=== PATIENT | female | born 1950 | race Caucasian/White ===

== ENCOUNTER 2018-08-14 14:16 | Inpatient (IN) | payer OTHER ==
[~2018-08-14] VITALS: Ht 160 cm; Wt 69.5 kg
[~2018-08-14 14:16] MED LIST: FENOFIBRATE 145 MG TAB PO SCH
[2018-08-14] MEDS ORDERED: ACETAMINOPHEN 325 MG TAB PO STA (14:23)
[2018-08-14] MEDS ORDERED: CEFEPIME 2GM/50 ML (PMX) 50 ML IVPB STA (14:23)
[2018-08-14 14:26] VITALS: Ht 160 cm; Wt 69.5 kg
[2018-08-14] MEDS ORDERED: VANCOMYCIN 1 GM (PMX) 250 ML IVPB ONE (14:30)
[2018-08-14] MEDS ORDERED: SODIUM CHLORIDE 0.9% 1L BAG IV* STA (14:48)
[2018-08-14] MEDS ORDERED: METF100010 PO (14:57)
[2018-08-14] MEDS ORDERED: OMEP40CA6 PO (14:57)
[2018-08-14] MEDS ORDERED: LOSA50TA14 PO (14:58)
[2018-08-14] MEDS ORDERED: LINA5TAB PO (14:58)
[2018-08-14] MEDS ORDERED: METO-429 PO (14:58)
[2018-08-14] MEDS ORDERED: FENO160T13 PO (14:59)
[2018-08-14] MEDS ORDERED: OMEG-140 PO (15:00)
[2018-08-14] MEDS ORDERED: CLON-379 PO (15:00)
--- NOTE | 2018-08-14 16:14 | HP ---
Date/Time of Note Date/Time of Note DATE: 08/14/18 TIME: 16:14 Assessment/Plan VTE Prophylaxis SCD applied (from Nsg): No SCD contraindicated: other Pharmacological prophylaxis: heparin Lines/Catheters IV Catheter Type (from Nrsg): [place] Assessment/Plan Hospital Course A/P: 68-year-old female presents with epigastric right upper quadrant pain, sepsis likely secondary to UTI and possibly secondary to cholangitis: #Sepsis -likely secondary to UTI, but could also be possible signs of cholangitis although her LFTs were normal. -Admit patient, check TSH, A1c, lipid panel, continue broad-spectrum a ntibiotics and IV fluids, trend lactic acid -Tylenol PRN pain fever #Right upper quadrant pain: Again her gallbladder ultrasound shows signs of possible cholecystitis. -We will obtain surgery consult continue pain control medications and IV fluids anti-medic medications -We will also get HIDA scan #Diabetes: Follow-up A1c continue sliding scale #High cholesterol: Follow-up lipid panel #Hypertension: Blood pressure stable -Continue current medications Result Diagram: 08/14/18 1442 08/14/18 1442 Results 24hrs Laboratory Tests Test 08/14/18 14:25 08/14/18 14:39 08/14/18 14:42 08/14/18 14:59 Bedside Glucose 229 H POC Venous 5.1 *H Lactate White Blood Count 8.3 Red Blood Count 4.62 Hemoglobin 13.8 Hematocrit 40.2 Mean Corpuscular 87.0 Volume Mean Corpuscular 29.9 Hemoglobin Mean Corpuscular 34.3 Hemoglobin Concen t Red Cell 12.1 Distribution Width Platelet Count 281 Mean Platelet 10.2 Volume Immature 0.400 Granulocytes % Neutrophils % 87.8 H Lymphocytes % 9.3 L Monocytes % 1.7 Eosinophils % 0.2 Basophils % 0.6 Nucleated Red 0.0 Blood Cells % Immature 0.030 Granulocytes # Neutrophils # 7.3 Lymphocytes # 0.8 Monocytes # 0.1 L Eosinophils # 0.0 Basophils # 0.1 Nucleated Red 0.0 Blood Cells # Prothrombin Time 12.7 Prothrombin Time 1.0 Ratio INR International 0.94 Normalized Ratio Activated 44.9 H Partial Thrombopl ast Time Sodium Level 135 Potassium Level 3.7 Chloride Level 95 L Carbon Dioxide 21 Level Anion Gap 19 H Blood Urea 12 Nitrogen Creatinine 0.79 Est Glomerular > 60 Filtrat Rate mL/min Glucose Level 269 H Calcium Level 10.8 H Total Bilirubin 0.4 Direct Bilirubin 0.00 Indirect 0.4 Bilirubin Aspartate Amino 45 Transf (AST/SGOT) Alanine 26 Aminotransferase (ALT/SGPT) Alkaline 97 Phosphatase Troponin I < 0.012 Total Protein 8.4 H Albumin 4.7 Globulin 3.70 H Albumin/Globulin 1.27 Ratio Lipase 163 Test 08/14/18 15:15 Urine Color YELLOW Urine Clarity SLIGHTLY CLOUDY A Urine pH 6.0 Urine Specific 1.014 [place] Urine Ketones TRACE A Urine Nitrite NEGATIVE Urine Bilirubin NEGATIVE Urine NEGATIVE Urobilinogen Urine Leukocyte 2+ H Esterase Urine Microscopic 6 H RBC Urine Microscopic 93 H WBC Urine Bacteria FEW A Urine Hemoglobin NEGATIVE Urine Glucose 2+ H Urine Total 1+ H Protein HPI/ROS Admit Date/Time Admit Date/Time Hx of Present Illness 68-year-old female past medical history of: Diabetes, hypertension, high cholesterol, GERD, possible gallstones who complains of abdominal pain. Symptoms have been going on for the last 3 days. She is also had some nausea an d nonbilious nonbloody vomiting symptoms. Complains of chills at home. Is told in the past she has gallstones was never had any surgeries before including any gallbladder surgeries. She also complains of some mild low back pain. When she arrived she was found with temperature 104.5. Her UA is also positive for signs of UTI, but her white count is normal 8.3. Her gallbladder ultrasound also s howed signs of gallbladder wall thickening and sludge, possible cholecystitis. PMH/Family/Social Past Medical History Medications Current Medications Vancomycin HCl 250 ml @ 125 mls/hr ONCE ONCE IVPB Last administered on 08/14/18at 15:46; Admin Dose 125 MLS/HR; Start 08/14/18 at 14:30; Stop 08/14/18 at 16:29 Ondansetron HCl (Zofran Inj) 4 mg BRIDGE ORDER PRN IV NAUSEA/VOMITING; Start 08/14/18 at 16:30; Stop 08/15/18 at 16:29 Acetaminophen (Tylenol Tab) 650 mg ER BRIDGE PRN PO .MILD PAIN 1-3 OR TEMP; Start 08/14/18 at 16:30; Stop 08/15/18 at 16:29 IV Flush (NS 3 ml) 3 ml PER PROTOCOL IV ; Start 08/14/18 at 16:30; Status UNV Ondansetron HCl (Zofran Inj) 4 mg Q6H PRN IV NAUSEA/VOMITING; Start 08/14/18 at 16:30; Status UNV Acetaminophen (Tylenol Tab) 650 mg Q6H PRN PO .PAIN 1-3 OR TEMP; Start 08/14/18 at 16:30; Status UNV Acetaminophen/ Hydrocodone Bitart ([place] (5/325)) 1 tab Q6H PRN PO .MOD PAIN 4- 6; Start 08/14/18 at 16:30; Status UNV Morphine Sulfate (morphine) 2 mg Q4H PRN IV .SEVERE PAIN 7-10; Start 08/14/18 at 16:30; Status UNV Docusate Sodium (Colace) 100 mg Q12H PRN PO .CONSTIPATION; Start 08/14/18 at 16:30; Status UNV Magnesium Hydroxide (Milk Of Mag) 30 ml DAILY PRN PO .CONSTIPATION; Start at 16:30; Status UNV Pantoprazole (Protonix Iv) 40 mg DAILY@06 IV ; Start 08/15/18 at 06:00; Status UNV Heparin Sodium (Porcine) (Heparin (5000 Units/1ml)) 5,000 unit Q12 SC ; Start 08/14/18 at 21:00; Status UNV Lorazepam (Ativan) 0.5 mg Q6H PRN IV ANXIETY; Start 08/14/18 at 16:30; Status UNV Sodium Chloride 1,000 ml @ 100 mls/hr Q10H IV ; Start 08/14/18 at 16:09; Status UNV Albuterol/ Ipratropium (Duoneb) 3 ml Q4H RESP THERAPY PRN HHN SHORTNESS OF BREATH; Start 08/14/18 at 16:30; Status UNV Hydralazine HCl (Apresoline) 10 mg Q6H PRN IV ELEVATED BLOOD PRESSURE; Start 08/14/18 at 16:30; Status UNV Nitroglycerin (Nitroglycerin (Sl Tab) 0.4 Mg) 1 tab Q5M PRN SL ANGINA; Start 08/14/18 at 16:30; Status UNV Cefepime HCl 50 ml @ 100 mls/hr Q12 IVPB ; Start 4/23/19 at 21:00; Status UNV Clonidine (Catapres) 0.1 mg BID PO ; Start 08/14/18 at 21:00; Status UNV Miscellaneous Information 160 mg DAILY PO ; Start 08/15/18 at 09:00; Status UNV Miscellaneous Information 1 each TID PO ; Start 08/14/18 at 21:00; Status UNV Miscellaneous Information 40 mg DAILY PO ; Start 08/15/18 at 09:00; Status UNV Coded Allergies: No Known Allergy (Unverified , 08/14/18) Past Surgical History Past Surgical Hx: no surgical history Family History Significant Family History: other (Father: Diabetes) Social History Alcohol Use: none Smoking Status: Never smoker Drug Use: none Exam/Review of Systems Vital Signs Vitals Vital Signs Date Temp Pulse Resp B/P (MAP) Pulse Ox O2 O2 Flow FiO2 Time Delivery Rate 08/14/18 99.4 108 24 122/68 97 Nasal 2.0 15:55 (86) Cannula Exam Exam Gen: lying in bed, no acute distress Eyes: PERRL, no icterus HEENT: No tongue fasciculations, clear oropharynx, moist mucous membranes Neck: Supple, no lymphadenopathy Card: Regular rate and rhythm, no murmurs Pulm: Clear to auscultation bilaterally Abd: Soft, but does have positive tenderness to palpation epigastric and right u pper quadrant area, no significant rebound or guarding, nondistended. No hepatosplenomegaly. Ext: No cyanosis/clubbing/edema Neuro: No focal deficits MARCELINO ROCA Aug 14, 2018 16:14
[2018-08-14] MEDS ORDERED: GLUCOSE GEL 15 GRAM TUBE BUCCAL PRN (16:30)
[2018-08-14] MEDS ORDERED: MAGNESIUM HYDROXIDE 30ML CUP PO PRN (16:30)
[2018-08-14] MEDS ORDERED: ACETAMINOPHEN 325 MG TAB PO PRN ×2 (16:30)
[2018-08-14] MEDS ORDERED: LORAZEPAM 2 MG INJ IV PRN (16:30)
[2018-08-14] MEDS ORDERED: NACL 0.9% 3 ML SYG IV SCH (16:30)
[2018-08-14] MEDS ORDERED: GLUCOSE GEL 15 GRAM TUBE PO PRN ×2 (16:30)
[2018-08-14] MEDS ORDERED: ALBUTEROL/IPRATROPIUM (NEB) 3 ML AMP HHN PRN (16:30)
[2018-08-14] MEDS ORDERED: DOCUSATE SODIUM 100 MG CAP PO PRN (16:30)
[2018-08-14] MEDS ORDERED: ONDANSETRON 4 MG INJ IV PRN ×2 (16:30)
[2018-08-14] MEDS ORDERED: GLUCAGON 1 MG INJ IM PRN (16:30)
[2018-08-14] MEDS ORDERED: hydrALAzine 20 MG INJ IV PRN (16:30)
[2018-08-14] MEDS ORDERED: DEXTROSE 50% 50 ML SYRINGE IV PRN ×2 (16:30)
[2018-08-14] MEDS ORDERED: NITROGLYCERIN (SL) 0.4 MG TAB SL PRN (16:30)
--- NOTE | 2018-08-14 18:13 | ERD ---
ER Documentation Chief Complaint Chief Complaint pt is bib family with c/o weakness, fever, shaking since 0 HPI Patient is a 68-year-old female with hypertension and diabetes who presents with dizziness and nausea. The patient says that she was "shaking all over". She had fever in the emergency department. Her symptoms started today. She has had a recent cough. She complains of epigastric pain. Upon review of old medical records this is the patient's first visit to the emergency department. ROS All systems reviewed and are negative except as per history of present illness. Medications Home Meds Reported Medications Clonidine Hcl* (Clonidine Hcl*) 0.1 Mg Tab, 0.1 MG PO BID, TAB 08/14/18 [place]-3/Dha/Epa/Fish Oil ([place] 3 500 Softgel) 1 Each Capsule, 1 EACH PO TID, CAP 08/14/18 Fenofibrate, Micronized* (Fenofibrate*) 160 Mg Tablet, 160 MG PO DAILY, TAB 08/14/18 Metoprolol Tartrate* (Lopressor*) 50 Mg Tab, 50 MG PO BID, #60 TAB 08/14/18 Linagliptin (TRADJENTA) 5 Mg Tablet, 5 MG PO DAILY, TAB 08/14/18 Losartan Potassium* (Losartan Potassium*) 50 Mg Tablet, 50 MG PO BID, TAB 08/14/18 Omeprazole* (Omeprazole*) 40 Mg Capsule.dr, 40 MG PO DAILY, #30 CAP 08/14/18 Metformin Hcl* (Metformin Hcl*) 1,000 Mg Tablet, 1000 MG PO WITH BREAKFAST DINNE, #60 TAB 08/14/18 Allergies Allergies: Coded Allergies: No Known Allergy (Unverified , 08/14/18) PMhx/Soc Hx Respiratory Disorders: No Hx Cardiac Disorders: Yes (HRTN; HIGH CHOLESTEROL) Hx Psychiatric Problems: No Hx Miscellaneous Medical Probl: No Hx Alcohol Use: No Hx Substance Use: No Hx Tobacco Use: No Smoking Status: Never smoker FmHx Family History: diabetes Physical Exam Vitals Vital Signs Date Temp Pulse Resp B/P (MAP) Pulse Ox O2 O2 Flow FiO2 Time Delivery Rate 08/14/18 100.3 104 18 109/67 95 Nasal 2.0 17:31 (81) Cannula 08/14/18 99.4 108 24 122/68 97 Nasal 2.0 15:55 (86) Cannula 08/14/18 Nasal 2 15:30 Cannula 08/14/18 104.5 117 24 147/83 89 14:26 (104) Physical Exam Const: Moderate distress Head: Atraumatic Eyes: Normal Conjunctiva ENT: Normal External Ears, Nose and Mouth. Neck: Full range of motion. No meningismus. Resp: Clear to auscultation bilaterally Cardio: Tachycardic rate without murmur Abd: Soft, epigastric tenderness to palpation without rebound or guarding Skin: No petechiae or rashes Back: No midline or flank tenderness Ext: No cyanosis, or edema Neur: Awake and alert Psych: Normal Mood and Affect Result Diagram: 08/14/18 1442 08/14/18 1442 Results 24 hrs Laboratory Tests Test 08/14/18 14:25 08/14/18 14:39 08/14/18 14:42 08/14/18 14:59 Bedside Glucose 229 mg/dL POC Venous 5.1 mmol/L Lactate White Blood Count 8.3 10^3/ul Red Blood Count 4.62 10^6/ul Hemoglobin 13.8 g/dl Hematocrit 40.2 % Mean Corpuscular 87.0 fl Volume Mean Corpuscular 29.9 pg Hemoglobin Mean Corpuscular 34.3 g/dl Hemoglobin Concen t Red Cell 12.1 % Distribution Width Platelet Count 281 10^3/UL Mean Platelet 10.2 fl Volume Immature 0.400 % Granulocytes % Neutrophils % 87.8 % Lymphocytes % 9.3 % Monocytes % 1.7 % Eosinophils % 0.2 % Basophils % 0.6 % Nucleated Red 0.0 /100WBC Blood Cells % Immature 0.030 10^3/ul Granulocytes # Neutrophils # 7.3 10^3/ul Lymphocytes # 0.8 10^3/ul Monocytes # 0.1 10^3/ul Eosinophils # 0.0 10^3/ul Basophils # 0.1 10^3/ul Nucleated Red 0.0 10^3/ul Blood Cells # Prothrombin Time 12.7 Sec Prothrombin Time 1.0 Ratio INR International 0.94 Normalized Ratio Activated 44.9 Sec Partial Thrombopl ast Time Sodium Level 135 mmol/L Potassium Level 3.7 mmol/L Chloride Level 95 mmol/L Carbon Dioxide 21 mmol/L Level Anion Gap 19 Blood Urea 12 mg/dl Nitrogen Creatinine 0.79 mg/dl Est Glomerular > 60 mL/min Filtrat Rate mL/min Glucose Level 269 mg/dl Calcium Level 10.8 mg/dl Total Bilirubin 0.4 mg/dl Direct Bilirubin 0.00 mg/dl Indirect 0.4 mg/dl Bilirubin Aspartate Amino 45 IU/L Transf (AST/SGOT) Alanine 26 IU/L Aminotransferase (ALT/SGPT) Alkaline 97 IU/L Phosphatase Troponin I < 0.012 ng/ml Total Protein 8.4 g/dl Albumin 4.7 g/dl Globulin 3.70 g/dl Albumin/Globulin 1.27 Ratio Lipase 163 U/L Test 08/14/18 15:15 08/14/18 16:30 08/14/18 17:21 Urine Color YELLOW Urine Clarity SLIGHTLY CLOUDY Urine pH 6.0 Urine Specific 1.014 [place] Urine Ketones TRACE mg/dL Urine Nitrite NEGATIVE mg/dL Urine Bilirubin NEGATIVE mg/dL Urine NEGATIVE mg/dL Urobilinogen Urine Leukocyte 2+ Jona/ul Esterase Urine Microscopic 6 /HPF RBC Urine Microscopic 93 /HPF WBC Urine Bacteria FEW /HPF Urine Hemoglobin NEGATIVE mg/dL Urine Glucose 2+ mg/dL Urine Total 1+ mg/dl Protein POC Venous 3.1 mmol/L Lactate Lactic Acid Level 3.1 mmol/L Current Medications Medications Dose Sig/Mag Start Time Status Last (Trade) Ordered Route PRN Stop Time Admin Dose Reason Admin 650 mg ONCE STAT 08/14/18 DC 08/14/18 Acetaminophen PO 14:23 15:01 (Tylenol 08/14/18 14:24 Tab) Cefepime HCl 50 ml @ ONCE STAT 08/14/18 DC 08/14/18 100 mls/hr IVPB 14:23 15:01 08/14/18 14:52 Vancomycin 250 ml @ ONCE ONCE 08/14/18 DC 08/14/18 HCl 125 mls/hr IVPB 14:30 15:46 08/14/18 16:29 Sodium 2,090 ml BOLUS OVER 2 08/14/18 DC 08/14/18 Chloride HOURS STAT 14:48 14:51 (NS) IV* 08/14/18 14:49 Ondansetron 4 mg BRIDGE ORDER 08/14/18 HCl (Zofran PRN IV 16:30 Inj) NAUSEA/VOMITI 08/15/18 16:29 NG 650 mg ER BRIDGE 08/14/18 Acetaminophen PRN PO 16:30 (Tylenol .MILD PAIN 08/15/18 16:29 Tab) 1-3 OR TEMP IV Flush 3 ml PER 08/14/18 (NS 3 ml) PROTOCOL IV 16:30 Ondansetron 4 mg Q6H PRN 08/14/18 HCl (Zofran IV 16:30 Inj) NAUSEA/VOMITI NG 650 mg Q6H PRN 08/14/18 Acetaminophen PO .PAIN 1-3 16:30 (Tylenol OR TEMP Tab) 1 tab Q6H PRN 08/14/18 Acetaminophen PO .MOD PAIN 16:30 / 4-6 Hydrocodone Bitart ([place] (5/325)) Morphine 2 mg Q4H PRN 08/14/18 Sulfate IV .SEVERE 16:30 (morphine) PAIN 7-10 Docusate 100 mg Q12H PRN 08/14/18 Sodium PO 16:30 (Colace) .CONSTIPATION Magnesium 30 ml DAILY PRN 08/14/18 Hydroxide PO 16:30 (Milk Of Mag) .CONSTIPATION 40 mg DAILY@06 08/15/18 Pantoprazole IV 06:00 (Protonix Iv) Heparin 5,000 unit Q12 SC 08/14/18 Sodium 21:00 (Porcine) (Heparin (5000 Units/1ml)) Lorazepam 0.5 mg Q6H PRN 08/14/18 (Ativan) IV ANXIETY 16:30 Sodium 1,000 ml @ Q10H IV 08/14/18 Chloride 100 mls/hr 19:00 Albuterol/ 3 ml Q4H RESP 08/14/18 Ipratropium THERAPY PRN 16:30 (Duoneb) HHN SHORTNESS OF BREATH Hydralazine 10 mg Q6H PRN 08/14/18 HCl IV ELEVATED 16:30 (Apresoline) BLOOD PRESSURE 1 tab Q5M PRN 08/14/18 Nitroglycerin SL ANGINA 16:30 (Nitroglyceri n (Sl Tab) 0.4 Mg) Cefepime HCl 50 ml @ Q12 IVPB 08/15/18 100 mls/hr 01:00 Clonidine 0.1 mg BID PO 08/14/18 (Catapres) 21:00 Fenofibrate 145 mg DAILY PO 08/14/18 DC ([place]) 09:00 08/14/18 16:41 Fish Oil 1,000 mg DAILY PO 08/15/18 (Fish Oil) 09:00 40 mg DAILY PO 08/15/18 DC Miscellaneous 09:00 Information 08/15/18 09:00 Discontinue ONCE ONCE 08/14/18 DC Miscellaneous current oral XX 16:30 sulfonylur... 08/14/18 16:31 Information (* Miscellaneous Pharmacy Order) Diagnostic 1 ea 02 XX 08/15/18 Test (Pha) 02:00 (Accu-Chek) ONCE ONCE 08/14/18 DC Miscellaneous HYPOGLYCEMIA XX 16:30 PROTOCOL 08/14/18 16:31 Information w... (* Miscellaneous Pharmacy Order) Insulin NOVOLOG Q4 SC 08/14/18 Aspart *MILD* 21:00 (Novolog ALGORI... Insulin Pen) Discontinue ONCE ONCE 08/14/18 DC Miscellaneous all previ... XX 16:30 08/14/18 16:31 Information (* Miscellaneous Pharmacy Order) 1 ea NOTE XX 08/14/18 Miscellaneous 16:30 Information Glucose 15 gm Q15M PRN 08/14/18 (Glutose) PO DECREASED 16:30 GLUCOSE Glucose 22.5 gm Q15M PRN 08/14/18 (Glutose) PO DECREASED 16:30 GLUCOSE Dextrose 25 ml Q15M PRN 08/14/18 (D50w IV DECREASED 16:30 Syringe) GLUCOSE Dextrose 50 ml Q15M PRN 08/14/18 (D50w IV DECREASED 16:30 Syringe) GLUCOSE Glucagon 1 mg Q15M PRN 08/14/18 (Glucagen) IM DECREASED 16:30 GLUCOSE Glucose 15 gm Q15M PRN 08/14/18 (Glutose) BUCCAL 16:30 DECREASED GLUCOSE Fenofibrate 145 mg DAILY PO 08/15/18 (Tricor) 09:00 Procedures/MDM EKG read by me: Rate/Rhythm: Sinus tachycardia at a rate of 105 Intervals: Normal Impression: Tachycardia without ischemia Chest x-ray read by radiology. Sepsis Documentation: Patient's infectious symptoms have not stabilized and the patient is at risk of rapid decompensation. The patient will be admitted for careful hydration, antibiotic therapy, and infectious source control. SEVERE SEPSIS CRITERIA: Infectious source: Cystitis End organ damage indicated by: Lactate greater than 2 SEPSIS MANAGEMENT Time of recognition of sepsis: 1439. Time of recognition of severe sepsis: 143. Time of recognition of septic shock: 1439. 3 HOUR BUNDLE Blood cultures x 2 before broad-spectrum antibiotics: Yes 30 ml/kg NS bolus completed Initial lactate 5.1 Repeat lactate 3.1 SEPTIC SHOCK ASSESSMENT: Yes lactic acid > 4.0 No persistent hypotension (SBP < 90 or 40 mmHg drop, MAP < 65) despite 30 mL/kg IV fluid bolus VOLUME REASSESSMENT FOR SEPTIC SHOCK: Reevaluation Time: 1731 Temp 100.3, BP 109/67, HR 104, RR 18, Pox 95% Heart regular rate & rhythm Lungs no crackles Skin warm & dry Cap Refill less than 2 seconds Peripheral pulses radially present PERSISTENT HYPOTENSION TREATMENT: Comfort care no Central line not Required Vasopressor started not required I considered further perfusion assessment with CVP measurement, SCVO2, bedside ultrasound volume assessment, passive leg raise, trial of further fluid bolus. And proceeded with 30 ml/kg fluid bolus of NSS, broad spectrum antibiotics, and admission. The patient will be admitted to the care of Dr. Rodriguez to a medical surgical bed. CRITICAL CARE Critical care time 35 minutes Emergent fluid management while maintaining close respiratory support. Provision of immediate and broad-spectrum antibiotic therapy. Simultaneous assessment for possible sources in order to direct targeted therapy. Consideration for invasive and chemical support to prevent cardiopulmonary collapse. Critical care time is independent of procedures performed. Departure Diagnosis: Primary Impression: Septic shock Additional Impression: Cystitis Condition: Serious VIC LEON MD Aug 14, 2018 18:13
[2018-08-14 20:50] VITALS: BP 139/72; PULSE 92; RESP 18
[2018-08-14] MEDS: SOD CHLORIDE 0.9% 1,000 ML IV SCH (22:21)
[2018-08-14] MEDS: HEPARIN 5,000 UNIT/1 ML VIAL SC SCH (22:23)
--- NOTE | 2018-08-14 22:27 | CONS ---
Assessment/Plan Assessment/Plan Assessment/Plan (Daily) 68 year old admitted with Sepsis, + UA and US and HIDA consistent with Acute Cholecystitis -- patient is a good candidate for Lap cholecystitis as Sepsis is improving with antibiotics and fluid resuscitation -- plan for Lap Deb Tomorrow Plan: 1. Lap Dbe 2. Consent will discuss risk of surgery including conversion to open, CBD injury and bleeding and liver injury. 3. NPO - case schedule Consultation Date/Type/Reason Admit Date/Time Date of Consultation: Aug 14, 2018 Type of Consult General Surgery Consult Reason for Consultation Evaluation of abdominal pain Date/Time of Note DATE: 08/14/18 TIME: 22:11 Hx of Present Illness 68-year-old female past medical history of: Diabetes, hypertension, high cholesterol, GERD, possible gallstones who complains of abdominal pain. Symptoms have been going on for the last 3 days. She is also had some nausea and nonbilious nonbloody vomiting symptoms. Complains of chills at home. Is told in the past she has gallstones was never had any surgeries before including any gallbladder surgeries. She also complains of some mild low back pain. When she arrived she was found with temperature 104.5. Her UA is also positive for signs of UTI, but her white count is normal 8.3. Her gallbladder ultrasound also showed signs of gallbladder wall thickening and sludge, possible cholecystitis. Constitutional: no complaints, chills, febrile, poor po Eyes: No no complaints, No pain, No discharge, No redness, No visual change, No other ENT: No no complaints, No bleeding, No pain, No congestion, No discharge, No dysphagia, No sore throat, No other Respiratory: No no complaints, No pain, No cough, No pleuritic pain, No shortness of breath, No sputum, No wheezing, No other Cardiovascular: No no complaints, No chest pain, No edema, No lightheadedness, No orthopenea, No palpitations, No paroxysmal nocturnal dyspnea, No other Gastrointestinal: decreased appetite, nausea, vomiting Genitourinary: dysuria Musculoskeletal: no complaints Skin: no complaints Neurologic: no complaints; No confusion, No dizziness, No focal-weakness, No headache, No syncope, No seizure, No other Endocrine: No no complaints, No polyuria, No polydypsia, No dry skin, No temp intolerance, No other Lymphatic: No no complaints, No adenopathy, No tender nodes, No lymphadema, No other Psychological: No no complaints, No nl mood/affect, No anxiety, No confusion, No depression, No suicidal, No other Immunologic: No no complaints, No immunodeficiency, No pruritis, No rhinitis, No urticaria, No other Past Medical History Home Meds Reported Medications Clonidine Hcl* (Clonidine Hcl*) 0.1 Mg Tab, 0.1 MG PO BID, TAB 08/14/18 [place]-3/Dha/Epa/Fish Oil ([place] 3 500 Softgel) 1 Each Capsule, 1 EACH PO TID, CAP 08/14/18 Fenofibrate, Micronized* (Fenofibrate*) 160 Mg Tablet, 160 MG PO DAILY, TAB 08/14/18 Metoprolol Tartrate* (Lopressor*) 50 Mg Tab, 50 MG PO BID, #60 TAB 08/14/18 Linagliptin (TRADJENTA) 5 Mg Tablet, 5 MG PO DAILY, TAB 08/14/18 Losartan Potassium* (Losartan Potassium*) 50 Mg Tablet, 50 MG PO BID, TAB 08/14/18 Omeprazole* (Omeprazole*) 40 Mg Capsule.dr, 40 MG PO DAILY, #30 CAP 08/14/18 Metformin Hcl* (Metformin Hcl*) 1,000 Mg Tablet, 1000 MG PO WITH BREAKFAST DINNE, #60 TAB 08/14/18 Medications Current Medications Ondansetron HCl (Zofran Inj) 4 mg BRIDGE ORDER PRN IV NAUSEA/VOMITING; Start 08/14/18 at 16:30; Stop 08/15/18 at 16:29 Acetaminophen (Tylenol Tab) 650 mg ER BRIDGE PRN PO .MILD PAIN 1-3 OR TEMP; Start 08/14/18 at 16:30; Stop 08/15/18 at 16:29 IV Flush (NS 3 ml) 3 ml PER PROTOCOL IV ; Start 08/14/18 at 16:30 Ondansetron HCl (Zofran Inj) 4 mg Q6H PRN IV NAUSEA/VOMITING; Start 08/14/18 at 16:30 Acetaminophen (Tylenol Tab) 650 mg Q6H PRN PO .PAIN 1-3 OR TEMP; Start 08/14/18 at 16:30 Acetaminophen/ Hydrocodone Bitart ([place] (5/325)) 1 tab Q6H PRN PO .MOD PAIN 4- 6; Start 08/14/18 at 16:30 Morphine Sulfate (morphine) 2 mg Q4H PRN IV .SEVERE PAIN 7-10; Start 08/14/18 at 16:30 Docusate Sodium (Colace) 100 mg Q12H PRN PO .CONSTIPATION; Start 08/14/18 at 16:30 Magnesium Hydroxide (Milk Of Mag) 30 ml DAILY PRN PO .CONSTIPATION; Start 08/14/18 at 16:30 Pantoprazole (Protonix Iv) 40 mg DAILY@06 IV ; Start 08/15/18 at 06:00 Heparin Sodium (Porcine) (Heparin (5000 Units/1ml)) 5,000 unit Q12 SC ; Start 08/14/18 at 21:00 Lorazepam (Ativan) 0.5 mg Q6H PRN IV ANXIETY; Start 08/14/18 at 16:30 Sodium Chloride 1,000 ml @ 100 mls/hr Q10H IV ; Start 08/14/18 at 19:00 Albuterol/ Ipratropium (Duoneb) 3 ml Q4H RESP THERAPY PRN HHN SHORTNESS OF BREATH; Start 08/14/18 at 16:30 Hydralazine HCl (Apresoline) 10 mg Q6H PRN IV ELEVATED BLOOD PRESSURE; Start 08/14/18 at 16:30 Nitroglycerin (Nitroglycerin (Sl Tab) 0.4 Mg) 1 tab Q5M PRN SL ANGINA; Start 08/14/18 at 16:30 Cefepime HCl 50 ml @ 100 mls/hr Q12 IVPB ; Start 08/15/18 at 01:00 Clonidine (Catapres) 0.1 mg BID PO ; Start 08/14/18 at 21:00 Fish Oil (Fish Oil) 1,000 mg DAILY PO ; Start 08/15/18 at 09:00 Diagnostic Test (Pha) (Accu-Chek) 1 ea 02 XX ; Start 08/15/18 at 02:00 Insulin Aspart (Novolog Insulin Pen) NOVOLOG *MILD* ALGORI... Q4 SC ; Start 08/14/18 at 21:00 Miscellaneous Information 1 ea NOTE XX ; Start 08/14/18 at 16:30 Glucose (Glutose) 15 gm Q15M PRN PO DECREASED GLUCOSE; Start 08/14/18 at 16:30 Glucose (Glutose) 22.5 gm Q15M PRN PO DECREASED GLUCOSE; Start 08/14/18 at 16:30 Dextrose (D50w Syringe) 25 ml Q15M PRN IV DECREASED GLUCOSE; Start 08/14/18 at 16:30 Dextrose (D50w Syringe) 50 ml Q15M PRN IV DECREASED GLUCOSE; Start 08/14/18 at 16:30 Glucagon (Glucagen) 1 mg Q15M PRN IM DECREASED GLUCOSE; Start 08/14/18 at 16:30 Glucose (Glutose) 15 gm Q15M PRN BUCCAL DECREASED GLUCOSE; Start 08/14/18 at 16:30 Fenofibrate (Tricor) 145 mg DAILY PO ; Start 08/15/18 at 09:00 Allergies: Coded Allergies: No Known Allergy (Unverified , 08/14/18) Past Surgical History Past Surgical Hx: no surgical history Social History Alcohol Use: none Smoking Status: Never smoker Drug Use: none Exam/Review of Systems Exam Vitals Vital Signs Date Temp Pulse Resp B/P (MAP) Pulse Ox O2 O2 Flow FiO2 Time Delivery Rate 08/14/18 98.3 92 18 139/72 96 20:50 (94) 08/14/18 Nasal 2.0 20:02 Cannula Results Result Diagram: 08/14/18 1442 08/14/18 1442 Results 24hrs Laboratory Tests Test 08/14/18 14:25 08/14/18 14:39 08/14/18 14:42 08/14/18 14:59 Bedside Glucose 229 H POC Venous 5.1 *H Lactate White Blood Count 8.3 Red Blood Count 4.62 Hemoglobin 13.8 Hematocrit 40.2 Mean Corpuscular 87.0 Volume Mean Corpuscular 29.9 Hemoglobin Mean Corpuscular 34.3 Hemoglobin Concen t Red Cell 12.1 Distribution Width Platelet Count 281 Mean Platelet 10.2 Volume Immature 0.400 Granulocytes % Neutrophils % 87.8 H Lymphocytes % 9.3 L Monocytes % 1.7 Eosinophils % 0.2 Basophils % 0.6 Nucleated Red 0.0 Blood Cells % Immature 0.030 Granulocytes # Neutrophils # 7.3 Lymphocytes # 0.8 Monocytes # 0.1 L Eosinophils # 0.0 Basophils # 0.1 Nucleated Red 0.0 Blood Cells # Prothrombin Time 12.7 Prothrombin Time 1.0 Ratio INR International 0.94 Normalized Ratio Activated 44.9 H Partial Thrombopl ast Time Sodium Level 135 Potassium Level 3.7 Chloride Level 95 L Carbon Dioxide 21 Level Anion Gap 19 H Blood Urea 12 Nitrogen Creatinine 0.79 Est Glomerular > 60 Filtrat Rate mL/min Glucose Level 269 H Calcium Level 10.8 H Total Bilirubin 0.4 Direct Bilirubin 0.00 Indirect 0.4 Bilirubin Aspartate Amino 45 Transf (AST/SGOT) Alanine 26 Aminotransferase (ALT/SGPT) Alkaline 97 Phosphatase Troponin I < 0.012 Total Protein 8.4 H Albumin 4.7 Globulin 3.70 H Albumin/Globulin 1.27 Ratio Lipase 163 Test 08/14/18 15:15 08/14/18 16:30 08/14/18 17:21 Urine Color YELLOW Urine Clarity SLIGHTLY CLOUDY A Urine pH 6.0 Urine Specific 1.014 [place] Urine Ketones TRACE A Urine Nitrite NEGATIVE Urine Bilirubin NEGATIVE Urine NEGATIVE Urobilinogen Urine Leukocyte 2+ H Esterase Urine Microscopic 6 H RBC Urine Microscopic 93 H WBC Urine Bacteria FEW A Urine Hemoglobin NEGATIVE Urine Glucose 2+ H Urine Total 1+ H Protein POC Venous 3.1 *H Lactate Lactic Acid Level 3.1 *H Free Thyroxine 1.58 Imaging Imaging US FINDINGS: The liver is increased in echogenicity and measures 20.7 cm. No focal hepatic masses are seen. The gallbladder is physiologically distended. There is sludge within the gallbladder appears gallbladder wall thickening and pericholecystic fluid. The common bile duct is not visualized. There is no intrahepatic duct dilatation. Midline images demonstrate the pancreas to be normal in echogenicity without obvious inflammatory change. Pancreatic tail is not visualized. Survey views of the right kidney demonstrate no evidence of hydronephrosis or renal calculi. The right kidney measures 11.0 cm. There is a 2.7 cm right renal cyst IMPRESSION: 1. Gallbladder sludge. There is thickening of the gallbladder wall and pericholecystic fluid. In the right clinical setting this is suggestive of acute cholecystitis. 2. Common bile duct not visualized. There is no intrahepatic duct dilatation. 3. Fatty change of the liver. 4. Hepatomegaly HIDA IMPRESSION: Gallbladder is not visualized after 90 minutes of imaging. Findings can be seen with acute or chronic cholecystitis. Consider delayed (3-4 hour) imaging or post morphine imaging if there is further concern. Medications Medication Current Medications Ondansetron HCl (Zofran Inj) 4 mg BRIDGE ORDER PRN IV NAUSEA/VOMITING; Start 08/14/18 at 16:30; Stop 08/15/18 at 16:29 Acetaminophen (Tylenol Tab) 650 mg ER BRIDGE PRN PO .MILD PAIN 1-3 OR TEMP; Start 08/14/18 at 16:30; Stop 08/15/18 at 16:29 IV Flush (NS 3 ml) 3 ml PER PROTOCOL IV ; Start 08/14/18 at 16:30 Ondansetron HCl (Zofran Inj) 4 mg Q6H PRN IV NAUSEA/VOMITING; Start 08/14/18 at 16:30 Acetaminophen (Tylenol Tab) 650 mg Q6H PRN PO .PAIN 1-3 OR TEMP; Start 08/14/18 at 16:30 Acetaminophen/ Hydrocodone Bitart ([place] (5/325)) 1 tab Q6H PRN PO .MOD PAIN 4- 6; Start 08/14/18 at 16:30 Morphine Sulfate (morphine) 2 mg Q4H PRN IV .SEVERE PAIN 7-10; Start 08/14/18 at 16:30 Docusate Sodium (Colace) 100 mg Q12H PRN PO .CONSTIPATION; Start 08/14/18 at 16:30 Magnesium Hydroxide (Milk Of Mag) 30 ml DAILY PRN PO .CONSTIPATION; Start 08/14/18 at 16:30 Pantoprazole (Protonix Iv) 40 mg DAILY@06 IV ; Start 08/15/18 at 06:00 Heparin Sodium (Porcine) (Heparin (5000 Units/1ml)) 5,000 unit Q12 SC ; Start 08/14/18 at 21:00 Lorazepam (Ativan) 0.5 mg Q6H PRN IV ANXIETY; Start 08/14/18 at 16:30 Sodium Chloride 1,000 ml @ 100 mls/hr Q10H IV ; Start 08/14/18 at 19:00 Albuterol/ Ipratropium (Duoneb) 3 ml Q4H RESP THERAPY PRN HHN SHORTNESS OF BREATH; Start 08/14/18 at 16:30 Hydralazine HCl (Apresoline) 10 mg Q6H PRN IV ELEVATED BLOOD PRESSURE; Start 08/14/18 at 16:30 Nitroglycerin (Nitroglycerin (Sl Tab) 0.4 Mg) 1 tab Q5M PRN SL ANGINA; Start 08/14/18 at 16:30 Cefepime HCl 50 ml @ 100 mls/hr Q12 IVPB ; Start 08/15/18 at 01:00 Clonidine (Catapres) 0.1 mg BID PO ; Start 08/14/18 at 21:00 Fish Oil (Fish Oil) 1,000 mg DAILY PO ; Start 08/15/18 at 09:00 Diagnostic Test (Pha) (Accu-Chek) 1 ea 02 XX ; Start 08/15/18 at 02:00 Insulin Aspart (Novolog Insulin Pen) NOVOLOG *MILD* ALGORI... Q4 SC ; Start 08/14/18 at 21:00 Miscellaneous Information 1 ea NOTE XX ; Start 08/14/18 at 16:30 Glucose (Glutose) 15 gm Q15M PRN PO DECREASED GLUCOSE; Start 08/14/18 at 16:30 Glucose (Glutose) 22.5 gm Q15M PRN PO DECREASED GLUCOSE; Start 08/14/18 at 16:30 Dextrose (D50w Syringe) 25 ml Q15M PRN IV DECREASED GLUCOSE; Start 08/14/18 at 16:30 Dextrose (D50w Syringe) 50 ml Q15M PRN IV DECREASED GLUCOSE; Start 08/14/18 at 16:30 Glucagon (Glucagen) 1 mg Q15M PRN IM DECREASED GLUCOSE; Start 08/14/18 at 16:30 Glucose (Glutose) 15 gm Q15M PRN BUCCAL DECREASED GLUCOSE; Start 08/14/18 at 16:30 Fenofibrate (Tricor) 145 mg DAILY PO ; Start 08/15/18 at 09:00 LUKASZ COLBY MD Aug 14, 2018 22:26
[2018-08-14] MEDS: INSULIN ASPART [NOVOLOG] 3 ML PEN SC SCH (23:22)
[2018-08-15] VITALS (16 sets, daily range): BP systolic 112–188; BP diastolic 69–103; PULSE 79–114; RESP 16–26
[2018-08-15] MEDS: CEFEPIME 2GM/50 ML (PMX) 50 ML IVPB SCH ×3 (01:54→21:26)
[2018-08-15] MEDS: INSULIN ASPART [NOVOLOG] 3 ML PEN SC SCH ×6 (02:05→21:30)
[2018-08-15] MEDS: ACCU-CHEK XX SCH (02:06)
[2018-08-15] MEDS: SOD CHLORIDE 0.9% 1,000 ML IV SCH ×2 (04:09→16:21)
[2018-08-15] MEDS: PANTOPRAZOLE 40 MG INJ IV SCH (05:33)
[2018-08-15] MEDS: PIPER-TAZO 3.375 GM IV (PMX) 100 ML IVPB SCH ×3 (06:10→21:26)
[2018-08-15] MEDS ORDERED: PIPER-TAZO 3.375 GM IV (PMX) 100 ML IVPB SCH (08:00)
[2018-08-15] MEDS: FISH OIL 1,000 MG CAP PO SCH (09:00)
[2018-08-15] MEDS: FENOFIBRATE 145 MG TAB PO SCH (09:00)
[2018-08-15] MEDS ORDERED: NON-FORMULARY/PATIENT OWN MED (Omeprazole* 40 MG) PO SCH (09:00)
[2018-08-15] MEDS ORDERED: MAGNESIUM SULFATE 3 GM in DEXTROSE 5% 100 ML IVPB SCH (12:00)
--- NOTE | 2018-08-15 12:17 | PREAC ---
Date/Time of Note Date/Time of Note DATE: 08/15/18 TIME: 12:15 Anesthesia Eval and Record Evaluation Time Pre-Procedure Interview DATE: 08/15/18 TIME: 12:15 Age 68 Sex female NPO: 8 hrs Preoperative diagnosis acute cholecystitis Planned procedure lap fernando Past Medical History Past Medical History: Includes Cardio: HTN, Dyslipidemia Endo: Diabetes GI: GERD Surgery & Anesthesia Issues No known issue Meds Anticoagulation: No Beta Kayy within 24 hr: Yes Reported Medications Clonidine Hcl* (Clonidine Hcl*) 0.1 Mg Tab, 0.1 MG PO BID, TAB 08/14/18 [place]-3/Dha/Epa/Fish Oil ([place] 3 500 Softgel) 1 Each Capsule, 1 EACH PO TID, CAP 08/14/18 Fenofibrate, Micronized* (Fenofibrate*) 160 Mg Tablet, 160 MG PO DAILY, TAB 08/14/18 Metoprolol Tartrate* (Lopressor*) 50 Mg Tab, 50 MG PO BID, #60 TAB 08/14/18 Linagliptin (TRADJENTA) 5 Mg Tablet, 5 MG PO DAILY, TAB 08/14/18 Losartan Potassium* (Losartan Potassium*) 50 Mg Tablet, 50 MG PO BID, TAB 08/14/18 Omeprazole* (Omeprazole*) 40 Mg Capsule.dr, 40 MG PO DAILY, #30 CAP 08/14/18 Metformin Hcl* (Metformin Hcl*) 1,000 Mg Tablet, 1000 MG PO WITH BREAKFAST DINNE, #60 TAB 08/14/18 Current Medications Ondansetron HCl (Zofran Inj) 4 mg BRIDGE ORDER PRN IV NAUSEA/VOMITING; Start 08/14/18 at 16:30; Stop 08/15/18 at 16:29 Acetaminophen (Tylenol Tab) 650 mg ER BRIDGE PRN PO .MILD PAIN 1-3 OR TEMP; S tart 08/14/18 at 16:30; Stop 08/15/18 at 16:29 IV Flush (NS 3 ml) 3 ml PER PROTOCOL IV ; Start 08/14/18 at 16:30 Ondansetron HCl (Zofran Inj) 4 mg Q6H PRN IV NAUSEA/VOMITING; Start 08/14/18 at 16:30 Acetaminophen (Tylenol Tab) 650 mg Q6H PRN PO .PAIN 1-3 OR TEMP; Start 08/14/18 at 16:30 Acetaminophen/ Hydrocodone Bitart ([place] (5/325)) 1 tab Q6H PRN PO .MOD PAIN 4- 6; Start 08/14/18 at 16:30 Morphine Sulfate (morphine) 2 mg Q4H PRN IV .SEVERE PAIN 7-10; Start 08/14/18 at 16:30 Docusate Sodium (Colace) 100 mg Q12H PRN PO .CONSTIPATION; Start 08/14/18 at 16:30 Magnesium Hydroxide (Milk Of Mag) 30 ml DAILY PRN PO .CONSTIPATION; Start 08/14/18 at 16:30 Pantoprazole (Protonix Iv) 40 mg DAILY@06 IV Last administered on 08/15/18at 05:33; Admin Dose 40 MG; Start 08/15/18 at 06:00 Heparin Sodium (Porcine) (Heparin (5000 Units/1ml)) 5,000 unit Q12 SC Last administered on 08/14/18at 22:23; Admin Dose 5,000 UNIT; Start 08/14/18 at 21:00; Status Hold Lorazepam (Ativan) 0.5 mg Q6H PRN IV ANXIETY; Start 08/14/18 at 16:30 Sodium Chloride 1,000 ml @ 100 mls/hr Q10H IV Last administered on 08/14/18at 22:21; Admin Dose 100 MLS/HR; Start 08/14/18 at 19:00 Albuterol/ Ipratropium (Duoneb) 3 ml Q4H RESP THERAPY PRN HHN SHORTNESS OF BREATH; Start 08/14/18 at 16:30 Hydralazine HCl (Apresoline) 10 mg Q6H PRN IV ELEVATED BLOOD PRESSURE; Start 08/14/18 at 16:30 Nitroglycerin (Nitroglycerin (Sl Tab) 0.4 Mg) 1 tab Q5M PRN SL ANGINA; Start 08/14/18 at 16:30 Cefepime HCl 50 ml @ 100 mls/hr Q12 IVPB Last administered on 08/15/18at 10:29; Admin Dose 100 MLS/HR; Start 08/15/18 at 01:00 Clonidine (Catapres) 0.1 mg BID PO Last administered on 08/14/18at 22:22; Admin Dose 0.1 MG; Start 08/14/18 at 21:00 Fish Oil (Fish Oil) 1,000 mg DAILY PO ; Start 08/15/18 at 09:00 Diagnostic Test (Pha) (Accu-Chek) 1 ea 02 XX Last administered on 08/15/18at 02:06; Admin Dose 1 EA; Start 08/15/18 at 02:00 Insulin Aspart (Novolog Insulin Pen) NOVOLOG *MILD* ALGORI... Q4 SC Last administered on 08/15/18at 09:16; Admin Dose 3 UNIT; Start 08/14/18 at 21:00 Miscellaneous Information 1 ea NOTE XX ; Start 08/14/18 at 16:30 Glucose (Glutose) 15 gm Q15M PRN PO DECREASED GLUCOSE; Start 08/14/18 at 16:30 Glucose (Glutose) 22.5 gm Q15M PRN PO DECREASED GLUCOSE; Start 08/14/18 at 16:30 Dextrose (D50w Syringe) 25 ml Q15M PRN IV DECREASED GLUCOSE; Start 08/14/18 at 16:30 Dextrose (D50w Syringe) 50 ml Q15M PRN IV DECREASED GLUCOSE; Start 08/14/18 at 16:30 Glucagon (Glucagen) 1 mg Q15M PRN IM DECREASED GLUCOSE; Start 08/14/18 at 16:30 Glucose (Glutose) 15 gm Q15M PRN BUCCAL DECREASED GLUCOSE; Start 08/14/18 at 16:30 Fenofibrate (Tricor) 145 mg DAILY PO ; Start 08/15/18 at 09:00 Piperacillin Sod/ Tazobactam Sod 100 ml @ 25 mls/hr Q6 IVPB Last administered on 08/15/18at 06:10; Admin Dose 25 MLS/HR; Start 08/15/18 at 06:00 Magnesium Sulfate 3 gm/Dextrose 106 ml @ 35.333 mls/ hr NOW IVPB ; Start 08/15/18 at 12:00; Stop 08/15/18 at 20:00 Potassium Phosphate 40 meq/ Sodium Chloride 259.0909 ml @ 64.773 m... NOW ONCE IVPB ; Start 08/15/18 at 15:30; Stop 08/15/18 at 19:29 Meds reviewed: Yes Allergies Coded Allergies: No Known Allergy (Unverified , 08/14/18) Allergies Reviewed: Yes Labs/Studies Labs Reviewed: Reviewed by anesthesiologist Result Diagram: 08/15/18 0553 08/15/18 0553 Laboratory Tests 08/15/18 05:53 test: N/A Studies: ECG Pre-procedure Exam Last vitals Vital Signs Date Temp Pulse Resp B/P (MAP) Pulse Ox O2 O2 Flow FiO2 Time Delivery Rate 08/15/18 98.8 82 17 139/69 95 Room Air 08:00 (92) 08/14/18 2.0 20:02 Airway: Adequate mouth opening, Adequate thyromental dist Mallampati: Mallampati II Teeth: Normal (upper denture removed lower partial removed only 4 bottom teeth. poor dentition but intact) Lung: Normal Heart: Normal ASA Physical Status ASA physical status: 3 Emergency: None Planned Anesthetic General/MAC: ETT Planned Pain Management Parenteral pain med Pre-operative Attestations Prior to commencing anesthesia and surgery, the patient was re-evaluated, there was verification of: *The patient's identity *The results of appropriate recent lab work and preoperative vital signs *The above evaluation not changing prior to induction *Anesthetic plan, risk benefits, alternative and complications discussed with patient/family; questions answered; patient/family understands, accepts and wishes to proceed. MAMIE BROWNLEE CRNA Aug 15, 2018 12:17
[2018-08-15] MEDS ORDERED: ROCURONIUM 50 MG INJ ONE (12:52)
[2018-08-15] MEDS ORDERED: PROPOFOL 20 ML ONE (12:52)
[2018-08-15] MEDS ORDERED: LIDOCAINE 2% (SDV) 5 ML INJ ONE (12:52)
[2018-08-15] MEDS ORDERED: BUPIVACAINE 0.25%/EPI (SDV) 30 ML INJ ONE (13:16)
[2018-08-15] MEDS ORDERED: FAMOTIDINE 20 MG INJ ONE (13:28)
[2018-08-15] MEDS ORDERED: ONDANSETRON 4 MG INJ ONE (13:28)
[2018-08-15] MEDS ORDERED: DEXAMETHASONE 4 MG/ML 5 ML INJ ONE (13:28)
[2018-08-15] MEDS ORDERED: METOPROLOL 5 MG INJ ONE (13:40)
[2018-08-15] MEDS ORDERED: LABETALOL HCL 20MG INJ ONE (14:07)
[2018-08-15] MEDS ORDERED: hydrALAzine 20 MG INJ ONE (14:14)
[2018-08-15] MEDS ORDERED: GLYCOPYRROLATE 0.4 MG INJ ONE (14:43)
[2018-08-15] MEDS ORDERED: NEOSTIGMINE 3 MG/3 ML SYRINGE ONE (14:43)
[2018-08-15] MEDS ORDERED: SUGAMMADEX SODIUM 200 MG/2 ML VIAL IV ONE (15:25)
[2018-08-15] MEDS ORDERED: POTASSIUM PHOSPHATE 40 MEQ in SOD CHLORIDE 0.9% 250 ML IVPB ONE (15:30)
--- NOTE | 2018-08-15 15:49 | PAC ---
Date/Time of Note Date/Time of Note DATE: 08/15/18 TIME: 15:49 Post-Anesthesia Notes Post-Anesthesia Note Last documented vital signs Vital Signs Date Temp Pulse Resp B/P (MAP) Pulse Ox O2 O2 Flow FiO2 Time Delivery Rate 08/15/18 98.8 82 17 139/69 95 Room Air 08:00 (92) 08/14/18 2.0 20:02 Activity: WNL Respiratory function: WNL Cardiovascular function: WNL Mental status: Baseline Pain reasonably controlled: Yes Hydration appropriate: Yes Nausea/Vomiting absent: Yes AKILA LEZAMA Aug 15, 2018 15:49
[2018-08-15] MEDS: morphine 2 MG INJ IV PRN ×2 (15:56→20:06)
[2018-08-15] MEDS ORDERED: DIPHENHYDRAMINE 50 MG INJ IV PRN (16:00)
[2018-08-15] MEDS ORDERED: METOCLOPRAMIDE 10 MG INJ IV PRN ×2 (16:00)
[2018-08-15] MEDS ORDERED: FENTAnyl 50 MCG/ML VIAL IV PRN ×2 (16:00)
[2018-08-15] MEDS ORDERED: HYDROmorphONE 0.5 MG/0.5 ML SYG IV PRN (16:00)
[2018-08-15] MEDS ORDERED: HYDROCODONE/APAP (5/325) TAB PO PRN (16:00)
[2018-08-15] MEDS ORDERED: CEPASTAT LOZENGE MT PRN (16:00)
[2018-08-15] MEDS ORDERED: ACETAMINOPHEN 325 MG TAB PO PRN (16:00)
[2018-08-15] MEDS ORDERED: hydrALAzine 20 MG INJ IV PRN (16:00)
[2018-08-15] MEDS ORDERED: ONDANSETRON 4 MG INJ IV PRN ×2 (16:00)
[2018-08-15] MEDS ORDERED: HYDROmorphONE 1 MG/5 ML IV SYRINGE IV PRN ×2 (16:00)
--- NOTE | 2018-08-15 16:05 | SIPON ---
Date/Time of Note Date/Time of Note DATE: 08/15/18 TIME: 16:01 Operative Report Preoperative Diagnosis acute Cholecystitis Postoperative Diagnosis Same, additional diagnosis Gallbladder aberrant anatomy Operation/Procedure Performed Laparoscopic Cholecystectomy -- Dome down approach Surgeon see signature line phlebotomist lab assistant none Anesthesia: general Estimated blood loss: 50 - 100 ml's Transfusion Required none Specimen Gallbladder Grafts/Implants none Complications none LUKASZ COLBY MD Aug 15, 2018 16:05
[2018-08-15] MEDS ORDERED: MEPERIDINE 25 MG INJ ONE (16:09)
[2018-08-15] MEDS ORDERED: MEPERIDINE 25 MG INJ IV STA (16:10)
[2018-08-15] MEDS: LABETALOL HCL 20MG INJ IV PRN ×2 (16:10→16:35)
[2018-08-15] MEDS: LACTATED RINGER'S 1,000 ML IV SCH (17:34)
--- NOTE | 2018-08-15 17:38 | PN ---
Date/Time of Note Date/Time of Note DATE: 08/15/18 TIME: 17:34 Assessment/Plan VTE Prophylaxis Risk score (from Ns)>0 risk: 3 SCD applied (from Ns): No SCD contraindicated: other Pharmacological prophylaxis: heparin Lines/Catheters IV [facility]from [facility] Saline Lock Assessment/Plan Hospital Course S: O: Vs- see below PE: Gen: lying in bed, no acute distress Eyes: PERRL, no icterus HEENT: Pupils equal round reactive to light, extraocular muscles are intact Neck: Supple, no lymphadenopathy Card: Regular rate and rhythm, no murmurs Pulm: Clear to auscultation bilaterally Abd: Soft, surgical site covered in bandage Ext: No cyanosis/clubbing/edema Neuro: No focal deficits A/P: 68-year-old female presents with epigastric right upper quadrant pain, sepsis likely secondary to UTI and possibly secondary to cholecystitis. #Sepsis - likely secondary to UTI, but could also be possible signs of cholecystitis although her LFTs were normal. Of note her preliminary urine culture is positive for gram-negative rods, as is 1 out of 2 blood culture results. -Continue broad-spectrum antibiotics, given urine culture and blood culture results we will obtain infectious disease consult -Tylenol PRN pain fever -Replete low electrolytes #Right upper quadrant pain: Again her gallbladder ultrasound on admission showed signs of possible cholecystitis. Patient is status post laparoscopic cholecystectomy earlier today. -Follow-up postoperative recommendations from surgery team including pain control medications, and continue antibiotics, diet #Diabetes: Sugars in the 200-2 50 range, A1c was 7.8 -Continue sliding scale, add Lantus 12 units nightly #High cholesterol: Monitor for now #Hypertension: Blood pressure stable -Continue current medications Result Diagram: 08/15/18 0553 08/15/18 0553 Results 24hrs Laboratory Tests Test 08/14/18 22:14 08/14/18 22:56 08/15/18 01:02 08/15/18 02:02 Lactic Acid Level 2.1 *H 1.7 Bedside Glucose 227 H 263 H Test 08/15/18 05:11 08/15/18 05:53 08/15/18 09:12 Bedside Glucose 197 225 H White Blood Count 13.7 #H Red Blood Count 3.87 L Hemoglobin 11.5 L Hematocrit 34.4 L Mean Corpuscular 88.9 Volume Mean Corpuscular 29.7 Hemoglobin Mean Corpuscular 33.4 Hemoglobin Concent Red Cell 12.4 Distribution Width Platelet Count 284 Mean Platelet Volume 10.4 Immature 0.600 H Granulocytes % Neutrophils % 80.4 H Lymphocytes % 9.7 L Monocytes % 6.6 Eosinophils % 1.9 Basophils % 0.8 Nucleated Red Blood 0.0 Cells % Immature 0.080 H Granulocytes # Neutrophils # 11.1 H Lymphocytes # 1.3 Monocytes # 0.9 Eosinophils # 0.3 Basophils # 0.1 Nucleated Red Blood 0.0 Cells # Sodium Level 141 Potassium Level 3.3 L Chloride Level 105 # Carbon Dioxide Level 27 Anion Gap 9 # Blood Urea Nitrogen 9 Creatinine 0.61 Est Glomerular > 60 Filtrat Rate mL/min Glucose Level 203 Hemoglobin A1c 7.8 H Calcium Level 9.0 Phosphorus Level 2.0 L Magnesium Level 1.3 L Triglycerides Level 192 H Cholesterol Level 105 LDL Cholesterol, 35 Calculated HDL Cholesterol 32 L Cholesterol/HDL 3.2 Ratio Thyroid Stimulating 0.478 Hormone (TSH) Exam/Review of Systems Exam Vitals Vital Signs Date Temp Pulse Resp B/P (MAP) Pulse Ox O2 O2 Flow FiO2 Time Delivery Rate 08/15/18 96 17 139/71 97 Nasal 3.0 16:38 (93) Cannula 08/15/18 98.6 15:49 Intake and Output 08/14/18 08/14/18 08/15/18 1515:00 23:00 07:00 IntakeIntake Total 650 ml BalanceBalance 650 ml Results Results 24hrs Laboratory Tests Test 08/14/18 22:14 08/14/18 22:56 08/15/18 01:02 08/15/18 02:02 Lactic Acid Level 2.1 *H 1.7 Bedside Glucose 227 H 263 H Test 08/15/18 05:11 08/15/18 05:53 08/15/18 09:12 Bedside Glucose 197 225 H White Blood Count 13.7 #H Red Blood Count 3.87 L Hemoglobin 11.5 L Hematocrit 34.4 L Mean Corpuscular 88.9 Volume Mean Corpuscular 29.7 Hemoglobin Mean Corpuscular 33.4 Hemoglobin Concent Red Cell 12.4 Distribution Width Platelet Count 284 Mean Platelet Volume 10.4 Immature 0.600 H Granulocytes % Neutrophils % 80.4 H Lymphocytes % 9.7 L Monocytes % 6.6 Eosinophils % 1.9 Basophils % 0.8 Nucleated Red Blood 0.0 Cells % Immature 0.080 H Granulocytes # Neutrophils # 11.1 H Lymphocytes # 1.3 Monocytes # 0.9 Eosinophils # 0.3 Basophils # 0.1 Nucleated Red Blood 0.0 Cells # Sodium Level 141 Potassium Level 3.3 L Chloride Level 105 # Carbon Dioxide Level 27 Anion Gap 9 # Blood Urea Nitrogen 9 Creatinine 0.61 Est Glomerular > 60 Filtrat Rate mL/min Glucose Level 203 Hemoglobin A1c 7.8 H Calcium Level 9.0 Phosphorus Level 2.0 L Magnesium Level 1.3 L Triglycerides Level 192 H Cholesterol Level 105 LDL Cholesterol, 35 Calculated HDL Cholesterol 32 L Cholesterol/HDL 3.2 Ratio Thyroid Stimulating 0.478 Hormone (TSH) Medications Medication Current Medications IV Flush (NS 3 ml) 3 ml PER PROTOCOL IV ; Start 08/14/18 at 16:30 Ondansetron HCl (Zofran Inj) 4 mg Q6H PRN IV NAUSEA/VOMITING; Start 08/14/18 at 16:30 Acetaminophen (Tylenol Tab) 650 mg Q6H PRN PO .PAIN 1-3 OR TEMP; Start 08/14/18 at 16:30 Acetaminophen/ Hydrocodone Bitart ([place] (5/325)) 1 tab Q6H PRN PO .MOD PAIN 4- 6; Start 08/14/18 at 16:30 Morphine Sulfate (morphine) 2 mg Q4H PRN IV .SEVERE PAIN 7-10 Last administered on 08/15/18at 15:56; Admin Dose 2 MG; Start 08/14/18 at 16:30 Docusate Sodium (Colace) 100 mg Q12H PRN PO .CONSTIPATION; Start 08/14/18 at 16:30 Magnesium Hydroxide (Milk Of Mag) 30 ml DAILY PRN PO .CONSTIPATION; Start 08/14/18 at 16:30 Pantoprazole (Protonix Iv) 40 mg DAILY@06 IV Last administered on 08/15/18at 05:33; Admin Dose 40 MG; Start 08/15/18 at 06:00 Heparin Sodium (Porcine) (Heparin (5000 Units/1ml)) 5,000 unit Q12 SC Last administered on 08/14/18at 22:23; Admin Dose 5,000 UNIT; Start 08/14/18 at 21:00; Status Hold Lorazepam (Ativan) 0.5 mg Q6H PRN IV ANXIETY; Start 08/14/18 at 16:30 Sodium Chloride 1,000 ml @ 100 mls/hr Q10H IV Last administered on 08/15/18at 16:21; Admin Dose 100 MLS/HR; Start 08/14/18 at 19:00 Albuterol/ Ipratropium (Duoneb) 3 ml Q4H RESP THERAPY PRN HHN SHORTNESS OF BREATH; Start 08/14/18 at 16:30 Hydralazine HCl (Apresoline) 10 mg Q6H PRN IV ELEVATED BLOOD PRESSURE; Start 08/14/18 at 16:30 Nitroglycerin (Nitroglycerin (Sl Tab) 0.4 Mg) 1 tab Q5M PRN SL ANGINA; Start 08/14/18 at 16:30 Cefepime HCl 50 ml @ 100 mls/hr Q12 IVPB Last administered on 08/15/18at 10:29; Admin Dose 100 MLS/HR; Start 08/15/18 at 01:00 Clonidine (Catapres) 0.1 mg BID PO Last administered on 08/14/18at 22:22; Admin Dose 0.1 MG; Start 08/14/18 at 21:00 Fish Oil (Fish Oil) 1,000 mg DAILY PO ; Start 08/15/18 at 09:00 Diagnostic Test (Pha) (Accu-Chek) 1 ea 02 XX Last administered on 08/15/18at 02:06; Admin Dose 1 EA; Start 08/15/18 at 02:00 Insulin Aspart (Novolog Insulin Pen) NOVOLOG *MILD* ALGORI... Q4 SC Last administered on 08/15/18at 09:16; Admin Dose 3 UNIT; Start 08/14/18 at 21:00 Miscellaneous Information 1 ea NOTE XX ; Start 08/14/18 at 16:30 Glucose (Glutose) 15 gm Q15M PRN PO DECREASED GLUCOSE; Start 08/14/18 at 16:30 Glucose (Glutose) 22.5 gm Q15M PRN PO DECREASED GLUCOSE; Start 08/14/18 at 16:30 Dextrose (D50w Syringe) 25 ml Q15M PRN IV DECREASED GLUCOSE; Start 08/14/18 at 16:30 Dextrose (D50w Syringe) 50 ml Q15M PRN IV DECREASED GLUCOSE; Start 08/14/18 at 16:30 Glucagon (Glucagen) 1 mg Q15M PRN IM DECREASED GLUCOSE; Start 08/14/18 at 16:30 Glucose (Glutose) 15 gm Q15M PRN BUCCAL DECREASED GLUCOSE; Start 08/14/18 at 16:30 Fenofibrate (Tricor) 145 mg DAILY PO ; Start 08/15/18 at 09:00 Piperacillin Sod/ Tazobactam Sod 100 ml @ 25 mls/hr Q6 IVPB Last administered on 08/15/18at 06:10; Admin Dose 25 MLS/HR; Start 08/15/18 at 06:00 Magnesium Sulfate 3 gm/Dextrose 106 ml @ 35.333 mls/ hr NOW IVPB Last adminis tered on 08/15/18at 16:15; Admin Dose 35.333 MLS/HR; Start 08/15/18 at 12:00; Stop 08/15/18 at 20:00 Potassium Phosphate 40 meq/ Sodium Chloride 259.0909 ml @ 64.773 m... NOW ONCE IVPB ; Start 08/15/18 at 15:30; Stop 08/15/18 at 19:29 Hydromorphone HCl (Dilaudid) 0.2 mg PACU PRN IV MILD PAIN 1-3; Start 08/15/18 at 16:00; Stop 08/15/18 at 23:00 Hydromorphone HCl (Dilaudid) 0.4 mg PACU PRN IV MOD PAIN 4-6 Last administered on 08/15/18at 16:07; Admin Dose 0.4 MG; Start 08/15/18 at 16:00; Stop 08/15/18 at 23:00 Fentanyl (Sublimaze) 25 mcg PACU ORDER PRN IV MILD PAIN 1-3; Start 08/15/18 at 16:00; Stop 08/15/18 at 23:00 Fentanyl (Sublimaze) 50 mcg PACU ORDER PRN IV MOD PAIN 4-6; Start 08/15/18 at 16:00; Stop 08/15/18 at 23:00 Ondansetron HCl (Zofran Inj) 4 mg PACU ORDER PRN IV NAUSEA/VOMITING; Start 08/15/18 at 16:00; Stop 08/15/18 at 23:00 Metoclopramide HCl (Reglan) 10 mg PACU ORDER PRN IV NAUSEA/VOMITING; Start 08/15/18 at 16:00; Stop 08/15/18 at 23:00 Labetalol HCl (Labetalol) 5 mg PACU ORDER PRN IV HIGH BLOOD PRESSURE Last administered on 08/15/18at 16:35; Admin Dose 5 MG; Start 08/15/18 at 16:00; Stop 08/15/18 at 23:00 Hydralazine HCl (Apresoline) 5 mg PACU ORDER PRN IV HIGH BLOOD PRESSURE Last administered on 08/15/18at 16:29; Admin Dose 5 MG; Start 08/15/18 at 16:00; Stop 08/15/18 at 23:00 Hydromorphone HCl (Dilaudid) 0.5 mg Q6H PRN IV PAIN LEVEL 6-10; Start 08/15/18 at 16:00 Acetaminophen/ Hydrocodone Bitart ([place] (5/325)) 1 tab Q6H PRN PO PAIN LEVEL 6-10; Start 08/15/18 at 16:00 Acetaminophen (Tylenol Tab) 650 mg Q6H PRN PO MILD PAIN(1-3)OR ELEVATED TEMP; Start 08/15/18 at 16:00 Diphenhydramine HCl (Benadryl) 25 mg Q6H PRN IV ITCHING; Start 08/15/18 at 16:00 Metoclopramide HCl (Reglan) 10 mg Q6H PRN IV NAUSEA AND/OR VOMITING; Start 08/15/18 at 16:00 Ondansetron HCl (Zofran Inj) 4 mg Q6H PRN IV NAUSEA AND/OR VOMITING; Start 08/15/18 at 16:00 Lactated Ringer's 1,000 ml @ 100 mls/hr Q10H IV ; Start 08/15/18 at 15:47 Phenol (Cepastat Lozenge) 1 lozenge PRN PRN MT SORE THROAT; Start 08/15/18 at 16:00 Insulin Glargine (Lantus) 12 units DAILY@2000 SC ; Start 08/15/18 at 20:00 MARCELINO ROCA Aug 15, 2018 17:38
[2018-08-15] MEDS: INSULIN GLARGINE [LANTus] (100 UNITS/ML) SYG SC SCH ×2 (18:00→20:00)
[2018-08-15] MEDS ORDERED: INSULIN GLARGINE [LANTus] (100 UNITS/ML) SYG SC SCH (20:00)
[2018-08-15] MEDS: HEPARIN 5,000 UNIT/1 ML VIAL SC SCH (21:33)
[2018-08-15] MEDS: HYDROCODONE/APAP (5/325) TAB PO PRN (21:50)
[2018-08-16] MEDS: INSULIN ASPART [NOVOLOG] 3 ML PEN SC SCH ×6 (00:29→21:00)
[2018-08-16] MEDS: PIPER-TAZO 3.375 GM IV (PMX) 100 ML IVPB SCH ×5 (00:33→23:47)
[2018-08-16] MEDS: morphine 2 MG INJ IV PRN (00:39)
[2018-08-16] MEDS: LACTATED RINGER'S 1,000 ML IV SCH (01:47)
[2018-08-16 02:00] VITALS: BP 124/73; PULSE 87; RESP 18
[2018-08-16] MEDS: ACCU-CHEK XX SCH (02:27)
--- NOTE | 2018-08-16 04:11 | CONS ---
DATE OF ADMISSION: 08/14/2018 DATE OF CONSULTATION: 08/15/2018 TYPE OF CONSULTATION: Infectious Disease. REASON FOR CONSULTATION: Antibiotic management. HISTORY OF PRESENT ILLNESS: Ms. Kayla Joshi is a 68-year-old female with numerous problems who was brought in by family complaining of weakness, fever and chills. Her problems include: 1. Hypertension. 2. Adult-onset diabetes mellitus. 3. Hypercholesterolemia. Acutely, the patient comes in with nausea, vomiting, and shaking chills. She had fever in the emerge ncy room. Her symptoms started on the day of admission. Her white count was 8.3 with 88% neutrophils, H and H 13.8 and 40.2, platelet count 281,000. BUN and creatinine 12/0.79 and glucose of 269. Her urine is growing gram-negative rods. Blood culture 1 ou t of 2 is growing gram-negative rods, so she has UTI with sepsis, although showing 20,000 to 30,000 c olony-forming units per mL in her urine. Influenza A and B is negative. Her chest x-ray shows no ac [place] infiltrates. HIDA scan was done. Gallbladder not visualized after 90 minutes, compatible with a cute or chronic cholecystitis and she has gallbladder sludge with thickening of the gallbladder and p ericholecystic fluid in the right clinical setting. This is suggestive of acute cholecystitis. Comm on bile duct not visualized, fatty changes of the liver and hepatomegaly. The patient was seen by Orville Felix and a laparoscopic cholecystectomy was planned. She was placed on cefepime. PAST MEDICAL HISTORY: Operations none. FAMILY HISTORY: Noncontributory. SOCIAL HISTORY: She does not smoke, drink or abuse drugs. ALLERGIES: NONE TO PENICILLIN, SULFA OR FOODS. MEDICATIONS: Per chart. REVIEW OF SYSTEMS: As per HPI. She had a laparoscopic cholecystectomy. Presently, the patient is s tatus post laparoscopic cholecystectomy earlier today. The patient has UTI with sepsis. PHYSICAL EXAMINATION: GENERAL: She is lying in bed in no acute distress. VITAL SIGNS: Stable. Currently afebrile. SKIN: Without generalized rash. HEENT: Within normal limits. NECK: Supple. LYMPH NODES: None palpable. CHEST: Decreased breath sounds at the bases. HEART: Without murmur or gallop. ABDOMEN: Soft, slightly tender in the right upper quadrant, status post cholecystectomy. Surgical s ite is covered with a bandage. EXTREMITIES: Without cyanosis, clubbing or edema. RECTAL AND GENITAL: Deferred. NEUROLOGIC: No focal neurological abnormality. IMPRESSION AND PLAN: The patient has both cholecystitis status post laparoscopic cholecystectomy and UTI with sepsis with gram-negative rods. We will continue her on her current regimen. I believe binh ibarra was on both Zosyn and cefepime. We should just continue either cefepime or Zosyn which we can do i n the morning. I will dictate my findings to the hospitalist. Dictated By: SABAS FRANK MD, JD/OSCAR Conf#: [id number] DID#: [id number] CC: MARCELINO ROCA;*[facility]*
[2018-08-16] MEDS: PANTOPRAZOLE 40 MG INJ IV SCH (05:30)
[2018-08-16] MEDS: HYDROCODONE/APAP (5/325) TAB PO PRN ×2 (05:31→22:01)
--- NOTE | 2018-08-16 07:07 | OPR ---
DATE OF OPERATION: PREOPERATIVE DIAGNOSIS: Acute cholecystitis. POSTOPERATIVE DIAGNOSIS: Acute cholecystitis. OPERATION PERFORMED: Laparoscopic cholecystectomy, dome down approach. 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 The gallbladder emanated from the medial aspect of the left lobe of the liver a nd upon our initial examination, the patient had a hydrops requiring decompression of the gallbladder . COMPLICATIONS: None. ESTIMATED BLOOD LOSS: 100 mL. DRAINS: A 15-[place] Anant drain was placed. OPERATIVE NOTE: The patient is a 68-year-old female with acute presentation of abdominal p ain and sepsis. Initial workup including ultrasound and HIDA demonstrated acute cholecystitis. Once the sepsis was resolved, the patient appeared to have improved with resuscitation and antibiotics. The decision was made to proceed with the surgery. Preoperatively, the risk of surgery including ris k of bleeding, infection, risk of common bile duct injury, and risk of need for possibly additional o peration was discussed with the patient and the patient's . In addition, the possibility of p erforming an open operation was discussed with the patient. DESCRIPTION OF PROCEDURE: The patient was brought to OR and placed in supine position. Sequential c ompression devices were applied to bilateral lower extremities. Preoperative antibiotic was administ ered. The patient was sedated and intubated. Anterior abdominal wall was prepped and draped in the usual surgical fashion. A proper timeout was completed by the operating room team. Veress needle in sufflation was achieved to her left upper quadrant stab incision site after a water drop test and con firmed Veress needle position. The abdomen was insufflated and a 5 mm trocar was placed through the right upper quadrant incision. Once the initial trocar was placed and we were inside the peritoneal cavity using an Optiview trocar, visualizing each layer of the anterior abdominal wall prior to enter ing the peritoneal cavity, we were able to visualize the anatomy. On initial inspection, I was surpr ised that the gallbladder appeared to be emanating from the medial aspect of the left lobe of the saturnino er rather than the medial aspect of the right lobe of the liver. In addition, it was of note that th e left lobe of the liver was significantly small and truncated. I was concerned that this may create aberrant anatomy and be a precursor to aberrant anatomy and to better decipher the anatomy, I procee ded to investigate this further by mobilizing the gallbladder superiorly. Upon mobilization of the g allbladder superiorly, the gallbladder surface appeared to be very friable and tense. Therefore, a d ecompression needle was used to remove at least 40 mL of hydrops from the liver. The fluid from the gallbladder was sent for culture. Next, we proceeded to visualize the cystic duct and common duct ju nction. The cystic duct common duct junction appeared to be in a good position away from dissection margins. I made a decision to pursue a dome-down approach for this operation to prevent any common b ile duct injury. Using a hook cautery, a dome-down approach was initiated and although there was a s ignificant amount of adhesions and friability of the liver with intermittent bleeding from the bed of the liver, we were able to control this bleeding and proceed with our dome-down approach to the leve l of the neck of the gallbladder. At this portion, I proceeded to dissect and separate out further a natomy and I felt because of the aberrant anatomical potential of this case, I will proceed with just division at the level of the neck of the gallbladder with a stapler. A 35 [place] Endo-IVAN stapler was used with multilength staplers to divide the tissue. Once the tissue was divided, the gallbladde r was placed in an EndoCatch bag and exteriorized. A drain was placed in the base of the gallbladder . The Bovie cautery was used to dry out the gallbladder bed off the liver and Surgicel was placed to prevent postoperative bleeding at the bed of the gallbladder. The 12 mm trocar site was closed usin g Endoclose and with 0 Vicryl suture. In addition, a drain was placed to monitor for any potential b ile leak. The patient tolerated procedure well and was sent to the PACU in stable condition. At the end of the operation, I went looking for the patient's family. I was unable to find the patient's f amily to discuss the operative findings. Dictated By: LUKASZ SANCHEZ/OSCAR Conf#: [id number] DID#: [id number] CC: HARSHA LAM MD; DAMARIS BERGMAN MD;*[facility]*
[2018-08-16 07:46] VITALS: BP 123/65; PULSE 88; RESP 18
[2018-08-16] MEDS: FISH OIL 1,000 MG CAP PO SCH (08:00)
[2018-08-16] MEDS: FENOFIBRATE 145 MG TAB PO SCH (08:01)
[2018-08-16] MEDS: HEPARIN 5,000 UNIT/1 ML VIAL SC SCH ×2 (08:03→21:58)
[2018-08-16] MEDS: CEFEPIME 2GM/50 ML (PMX) 50 ML IVPB SCH (08:10)
--- NOTE | 2018-08-16 13:20 | PN ---
Date/Time of Note Date/Time of Note DATE: 08/16/18 TIME: 13:19 Assessment/Plan VTE Prophylaxis Risk score (from Ns)>0 risk: 4 SCD applied (from Ns): No SCD contraindicated: other Pharmacological prophylaxis: heparin Lines/Catheters IV Catheter Type (from [facility]): [place] Assessment/Plan Hospital Course S: Patient tolerating diet but still feeling weak overall. No fevers overnight. Sugars are in the mid 200 range. O: Vs- see below PE: Gen: lying in bed, no acute distress Eyes: PERRL, no icterus HEENT: Pupils equal round reactive to light, extraocular muscles are intact Neck: Supple, no lymphadenopathy Card: Regular rate and rhythm, no murmurs Pulm: Clear to auscultation bilaterally Abd: Soft, surgical site covered in bandage Ext: No cyanosis/clubbing/edema Neuro: No focal deficits A/P: 68-year-old female presents with epigastric right upper quadrant pain, sepsis likely secondary to UTI and secondary to cholecystitis. #Sepsis - likely secondary to UTI, but could also be possible signs of cholecystitis although her LFTs were normal. Of note her preliminary urine culture is positive for ESBL E. coli 1 bottle, and both urine culture and wound culture positive for gram-negative rods -Continue broad-spectrum antibiotics Zosyn for now given the sensitivities, follow-up final urine and wound culture results and follow-up ID recommendations -Tylenol PRN pain fever -Replete low electrolytes as needed -Continue PT #Right upper quadrant pain: Again her gallbladder ultrasound on admission showed signs of possible cholecystitis. Patient is status post laparoscopic cholecystectomy postop day #1 -Follow-up postoperative recommendations from surgery team including pain control medications, and continue antibiotics, diet #Diabetes: Sugars still in the 250 range, A1c was 7.8 -Continue sliding scale, will add aspart 7 units with meals and increase La ntus to 20 units nightly #High cholesterol: Monitor for now #Hypertension: Blood pressure stable -Continue current medications Result Diagram: [id number]/16/1862708/[id number]/18627 Results 24hrs Laboratory Tests Test 08/15/18 17:35 08/15/18 20:14 08/16/18 00:25 08/16/18 02:28 Bedside Glucose 320 H 265 H 270 H 275 H Test 08/16/18 06:28 08/16/18 07:56 08/16/18 12:11 White Blood Count 17.1 #H Red Blood Count 3.75 L Hemoglobin 11.0 L Hematocrit 33.1 L Mean Corpuscular 88.3 Volume Mean Corpuscular 29.3 Hemoglobin Mean Corpuscular 33.2 Hemoglobin Concent Red Cell 12.9 Distribution Width Platelet Count 266 Mean Platelet Volume 10.3 Immature 0.500 H Granulocytes % Neutrophils % Segmented 64 Neutrophils % (Manual) Band Neutrophils % 23 H (Manual) Lymphocytes % Lymphocytes % 8 L (Manual) Monocytes % Monocytes % (Manual) 5 Eosinophils % Basophils % Nucleated Red Blood 0.0 Cells % Immature 0.080 H Granulocytes # Neutrophils # Neutrophils # 11.6 H (Manual) Band Neutrophils # 3.9 H Lymphocytes (Manual) 1.3 Lymphocytes # Monocytes # Monocytes # (Manual) 0.8 Eosinophils # Basophils # Nucleated Red Blood Cells # Platelet Estimate NORMAL Sodium Level 137 Potassium Level 3.1 L Chloride Level 104 Carbon Dioxide Level 22 Anion Gap 11 Blood Urea Nitrogen 10 Creatinine 0.56 Est Glomerular > 60 Filtrat Rate mL/min Glucose Level 270 H Calcium Level 7.6 L Phosphorus Level 3.3 Magnesium Level 1.7 Total Bilirubin 0.3 Direct Bilirubin 0.00 Indirect Bilirubin 0.3 Aspartate Amino 98 H Transf (AST/SGOT) Alanine 80 H Aminotransferase (AL T/SGPT) Alkaline Phosphatase 45 # Total Protein 6.1 # Albumin 3.3 # Globulin 2.80 Albumin/Globulin 1.17 Ratio Bedside Glucose 268 H 295 H Exam/Review of Systems Exam Vitals Vital Signs Date Temp Pulse Resp B/P (MAP) Pulse Ox O2 O2 Flow FiO2 Time Delivery Rate 08/16/18 98.2 88 18 123/65 95 Nasal 07:46 (84) Cannula 08/15/18 3.0 16:38 Intake and Output 08/15/18 08/15/18 08/16/18 1515:00 23:00 07:00 IntakeIntake Total 1850 ml 350 ml 1280 ml OutputOutput Total 20 ml 40 ml 500 ml BalanceBalance 1830 ml 310 ml 780 ml Results Results 24hrs Laboratory Tests Test 08/15/18 17:35 08/15/18 20:14 08/16/18 00:25 08/16/18 02:28 Bedside Glucose 320 H 265 H 270 H 275 H Test 08/16/18 06:28 08/16/18 07:56 08/16/18 12:11 White Blood Count 17.1 #H Red Blood Count 3.75 L Hemoglobin 11.0 L Hematocrit 33.1 L Mean Corpuscular 88.3 Volume Mean Corpuscular 29.3 Hemoglobin Mean Corpuscular 33.2 Hemoglobin Concent Red Cell 12.9 Distribution Width Platelet Count 266 Mean Platelet Volume 10.3 Immature 0.500 H Granulocytes % Neutrophils % Segmented 64 Neutrophils % (Manual) Band Neutrophils % 23 H (Manual) Lymphocytes % Lymphocytes % 8 L (Manual) Monocytes % Monocytes % (Manual) 5 Eosinophils % Basophils % Nucleated Red Blood 0.0 Cells % Immature 0.080 H Granulocytes # Neutrophils # Neutrophils # 11.6 H (Manual) Band Neutrophils # 3.9 H Lymphocytes (Manual) 1.3 Lymphocytes # Monocytes # Monocytes # (Manual) 0.8 Eosinophils # Basophils # Nucleated Red Blood Cells # Platelet Estimate NORMAL Sodium Level 137 Potassium Level 3.1 L Chloride Level 104 Carbon Dioxide Level 22 Anion Gap 11 Blood Urea Nitrogen 10 Creatinine 0.56 Est Glomerular > 60 Filtrat Rate mL/min Glucose Level 270 H Calcium Level 7.6 L Phosphorus Level 3.3 Magnesium Level 1.7 Total Bilirubin 0.3 Direct Bilirubin 0.00 Indirect Bilirubin 0.3 Aspartate Amino 98 H Transf (AST/SGOT) Alanine 80 H Aminotransferase (AL T/SGPT) Alkaline Phosphatase 45 # Total Protein 6.1 # Albumin 3.3 # Globulin 2.80 Albumin/Globulin 1.17 Ratio Bedside Glucose 268 H 295 H Medications Medication Current Medications IV Flush (NS 3 ml) 3 ml PER PROTOCOL IV ; Start 08/14/18 at 16:30 Acetaminophen/ Hydrocodone Bitart ([place] (5/325)) 1 tab Q6H PRN PO .MOD PAIN 4- 6 Last administered on 08/16/18at 05:31; Admin Dose 1 TAB; Start 08/14/18 at 16:30 Morphine Sulfate (morphine) 2 mg Q4H PRN IV .SEVERE PAIN 7-10 Last administered on 08/16/18at 00:39; Admin Dose 2 MG; Start 08/14/18 at 16:30 Docusate Sodium (Colace) 100 mg Q12H PRN PO .CONSTIPATION; Start 08/14/18 at 16:30 Magnesium Hydroxide (Milk Of Mag) 30 ml DAILY PRN PO .CONSTIPATION; Start 08/14/18 at 16:30 Pantoprazole (Protonix Iv) 40 mg DAILY@06 IV Last administered on 08/16/18at 05:30; Admin Dose 40 MG; Start 08/15/18 at 06:00 Heparin Sodium (Porcine) (Heparin (5000 Units/1ml)) 5,000 unit Q12 SC Last administered on 08/16/18at 08:03; Admin Dose 5,000 UNIT; Start 08/14/18 at 21:00 Lorazepam (Ativan) 0.5 mg Q6H PRN IV ANXIETY; Start 08/14/18 at 16:30 Albuterol/ Ipratropium (Duoneb) 3 ml Q4H RESP THERAPY PRN HHN SHORTNESS OF BREATH; Start 08/14/18 at 16:30 Hydralazine HCl (Apresoline) 10 mg Q6H PRN IV ELEVATED BLOOD PRESSURE; Start 08/14/18 at 16:30 Nitroglycerin (Nitroglycerin (Sl Tab) 0.4 Mg) 1 tab Q5M PRN SL ANGINA; Start 08/14/18 at 16:30 Clonidine (Catapres) 0.1 mg BID PO Last administered on 08/16/18at 08:00; Admin Dose 0.1 MG; Start 08/14/18 at 21:00 Fish Oil (Fish Oil) 1,000 mg DAILY PO Last administered on 08/16/18at 08:00; Admin Dose 1,000 MG; Start 08/15/18 at 09:00 Diagnostic Test (Pha) (Accu-Chek) 1 ea 02 XX Last administered on 08/16/18at 02:27; Admin Dose 1 EA; Start 08/15/18 at 02:00 Miscellaneous Information 1 ea NOTE XX ; Start 08/14/18 at 16:30 Glucose (Glutose) 15 gm Q15M PRN PO DECREASED GLUCOSE; Start 08/14/18 at 16:30 Glucose (Glutose) 22.5 gm Q15M PRN PO DECREASED GLUCOSE; Start 08/14/18 at 16:30 Dextrose (D50w Syringe) 25 ml Q15M PRN IV DECREASED GLUCOSE; Start 08/14/18 at 16:30 Dextrose (D50w Syringe) 50 ml Q15M PRN IV DECREASED GLUCOSE; Start 08/14/18 at 16:30 Glucagon (Glucagen) 1 mg Q15M PRN IM DECREASED GLUCOSE; Start 08/14/18 at 16:30 Glucose (Glutose) 15 gm Q15M PRN BUCCAL DECREASED GLUCOSE; Start 08/14/18 at 16:30 Fenofibrate (Tricor) 145 mg DAILY PO Last administered on 08/16/18at 08:01; Admin Dose 145 MG; Start 08/15/18 at 09:00 Piperacillin Sod/ Tazobactam Sod 100 ml @ 25 mls/hr Q6 IVPB Last administered on 08/16/18at 12:00; Admin Dose 25 MLS/HR; Start 08/15/18 at 06:00 Hydromorphone HCl (Dilaudid) 0.5 mg Q6H PRN IV PAIN LEVEL 6-10; Start 08/15/18 at 16:00 Acetaminophen/ Hydrocodone Bitart ([place] (5/325)) 1 tab Q6H PRN PO PAIN LEVEL 6-10; Start 08/15/18 at 16:00 Acetaminophen (Tylenol Tab) 650 mg Q6H PRN PO MILD PAIN(1-3)OR ELEVATED TEMP Last administered on 08/16/18at 02:42; Admin Dose 650 MG; Start 08/15/18 at 16:00 Diphenhydramine HCl (Benadryl) 25 mg Q6H PRN IV ITCHING; Start 08/15/18 at 16:00 Metoclopramide HCl (Reglan) 10 mg Q6H PRN IV NAUSEA AND/OR VOMITING; Start 08/15/18 at 16:00 Ondansetron HCl (Zofran Inj) 4 mg Q6H PRN IV NAUSEA AND/OR VOMITING Last administered on 08/16/18at 09:52; Admin Dose 4 MG; Start 08/15/18 at 16:00 Phenol (Cepastat Lozenge) 1 lozenge PRN PRN MT SORE THROAT; Start 08/15/18 at 16:00 Insulin Glargine (Lantus) 12 units DAILY@2000 SC Last administered on 08/15/18at 18:00; Admin Dose 12 UNITS; Start 08/15/18 at 18:00 Insulin Aspart (Novolog Insulin Pen) NOVOLOG *MILD* ALGORITHM WITH MEALS BEDTIME SC Last administered on 08/16/18at 12:14; Admin Dose 4 UNIT; Start 08/16/18 at 08:00 MARCELINO ROCA Aug 16, 2018 13:20
[2018-08-16 14:39] VITALS: BP 124/75; PULSE 81; RESP 18
--- NOTE | 2018-08-16 15:01 | CONS ---
Assessment/Plan Assessment/Plan Hospital Course (Demo Recall) Alert, lying comfortably in bed no fevers overnight still with moderate amount of abdominal pain WBC today 17.1 platelets 266 bands 23 BUN 10 creatinine 0.56 Microbiology: Blood culture growing E. coli ESBL susceptible to Zosyn urine culture growing gram-negative rods gallbladder cultures growing gram-negative rods Antimicrobials: Patient remains on Zosyn status post cefepime Physical examination well-developed elderly woman in no distress. Head atraumatic normocephalic sclera nonicteric. Neck is supple chest rise symmetrical, breath sounds clear, abdomen soft bowel sounds hypoactive mild tenderness on palpation, patient has RUBEN. Extremities without cyanosis. Assessment: 1. Sepsis on admission 2. E. coli ESBL bacteremia likely secondary to #3 3. Acute cholecystitis status post lap cholecystectomy 4. Urinary tract infection 5. Diabetes Plan: Patient remained stable, on appropriate antibiotic regimen, will repeat blood cultures tomorrow morning, follow surgical recommendations. Anticipate discharge on IV antibiotics for 10 more days to complete treatment for bacter emia Consultation Date/Type/Reason Admit Date/Time Aug 14, 2018 at 16:06 Initial Consult Date 08/14/18 Type of Consult ID Date/Time of Note DATE: 08/16/18 TIME: 15:01 Exam/Review of Systems Exam Vitals Vital Signs Date Temp Pulse Resp B/P (MAP) Pulse Ox O2 O2 Flow FiO2 Time Delivery Rate 08/16/18 98.2 88 18 123/65 95 Nasal 07:46 (84) Cannula 08/15/18 3.0 16:38 Intake and Output 08/15/18 08/15/18 08/16/18 1515:00 23:00 07:00 IntakeIntake Total 1850 ml 350 ml 1280 ml OutputOutput Total 20 ml 40 ml 500 ml BalanceBalance 1830 ml 310 ml 780 ml Results Result Diagram: 08/16/18 0628 08/16/18 0628 Results 24hrs Laboratory Tests Test 08/15/18 17:35 08/15/18 20:14 08/16/18 00:25 08/16/18 02:28 Bedside Glucose 320 H 265 H 270 H 275 H Test 08/16/18 06:28 08/16/18 07:56 08/16/18 12:11 White Blood Count 17.1 #H Red Blood Count 3.75 L Hemoglobin 11.0 L Hematocrit 33.1 L Mean Corpuscular 88.3 Volume Mean Corpuscular 29.3 Hemoglobin Mean Corpuscular 33.2 Hemoglobin Concent Red Cell 12.9 Distribution Width Platelet Count 266 Mean Platelet Volume 10.3 Immature 0.500 H Granulocytes % Neutrophils % Segmented 64 Neutrophils % (Manual) Band Neutrophils % 23 H (Manual) Lymphocytes % Lymphocytes % 8 L (Manual) Monocytes % Monocytes % (Manual) 5 Eosinophils % Basophils % Nucleated Red Blood 0.0 Cells % Immature 0.080 H Granulocytes # Neutrophils # Neutrophils # 11.6 H (Manual) Band Neutrophils # 3.9 H Lymphocytes (Manual) 1.3 Lymphocytes # Monocytes # Monocytes # (Manual) 0.8 Eosinophils # Basophils # Nucleated Red Blood Cells # Platelet Estimate NORMAL Sodium Level 137 Potassium Level 3.1 L Chloride Level 104 Carbon Dioxide Level 22 Anion Gap 11 Blood Urea Nitrogen 10 Creatinine 0.56 Est Glomerular > 60 Filtrat Rate mL/min Glucose Level 270 H Calcium Level 7.6 L Phosphorus Level 3.3 Magnesium Level 1.7 Total Bilirubin 0.3 Direct Bilirubin 0.00 Indirect Bilirubin 0.3 Aspartate Amino 98 H Transf (AST/SGOT) Alanine 80 H Aminotransferase (AL T/SGPT) Alkaline Phosphatase 45 # Total Protein 6.1 # Albumin 3.3 # Globulin 2.80 Albumin/Globulin 1.17 Ratio Bedside Glucose 268 H 295 H Medications Medication Current Medications IV Flush (NS 3 ml) 3 ml PER PROTOCOL IV ; Start 08/14/18 at 16:30 Acetaminophen/ Hydrocodone Bitart ([place] (5/325)) 1 tab Q6H PRN PO .MOD PAIN 4- 6 Last administered on 08/16/18at 05:31; Admin Dose 1 TAB; Start 08/14/18 at 16:30 Morphine Sulfate (morphine) 2 mg Q4H PRN IV .SEVERE PAIN 7-10 Last administered on 08/16/18at 00:39; Admin Dose 2 MG; Start 08/14/18 at 16:30 Docusate Sodium (Colace) 100 mg Q12H PRN PO .CONSTIPATION; Start 08/14/18 at 16:30 Magnesium Hydroxide (Milk Of Mag) 30 ml DAILY PRN PO .CONSTIPATION; Start 08/14/18 at 16:30 Pantoprazole (Protonix Iv) 40 mg DAILY@06 IV Last administered on 08/16/18at 05:30; Admin Dose 40 MG; Start 08/15/18 at 06:00 Heparin Sodium (Porcine) (Heparin (5000 Units/1ml)) 5,000 unit Q12 SC Last administered on 08/16/18at 08:03; Admin Dose 5,000 UNIT; Start 08/14/18 at 21:00 Lorazepam (Ativan) 0.5 mg Q6H PRN IV ANXIETY; Start 08/14/18 at 16:30 Albuterol/ Ipratropium (Duoneb) 3 ml Q4H RESP THERAPY PRN HHN SHORTNESS OF BREATH; Start 08/14/18 at 16:30 Hydralazine HCl (Apresoline) 10 mg Q6H PRN IV ELEVATED BLOOD PRESSURE; Start 08/14/18 at 16:30 Nitroglycerin (Nitroglycerin (Sl Tab) 0.4 Mg) 1 tab Q5M PRN SL ANGINA; Start 08/14/18 at 16:30 Clonidine (Catapres) 0.1 mg BID PO Last administered on 08/16/18at 08:00; Admin Dose 0.1 MG; Start 08/14/18 at 21:00 Fish Oil (Fish Oil) 1,000 mg DAILY PO Last administered on 08/16/18at 08:00; Admin Dose 1,000 MG; Start 08/15/18 at 09:00 Diagnostic Test (Pha) (Accu-Chek) 1 ea 02 XX Last administered on 08/16/18at 02:27; Admin Dose 1 EA; Start 08/15/18 at 02:00 Miscellaneous Information 1 ea NOTE XX ; Start 08/14/18 at 16:30 Glucose (Glutose) 15 gm Q15M PRN PO DECREASED GLUCOSE; Start 08/14/18 at 16:30 Glucose (Glutose) 22.5 gm Q15M PRN PO DECREASED GLUCOSE; Start 08/14/18 at 16:30 Dextrose (D50w Syringe) 25 ml Q15M PRN IV DECREASED GLUCOSE; Start 08/14/18 at 16:30 Dextrose (D50w Syringe) 50 ml Q15M PRN IV DECREASED GLUCOSE; Start 08/14/18 at 16:30 Glucagon (Glucagen) 1 mg Q15M PRN IM DECREASED GLUCOSE; Start 08/14/18 at 16:30 Glucose (Glutose) 15 gm Q15M PRN BUCCAL DECREASED GLUCOSE; Start 08/14/18 at 16:30 Fenofibrate (Tricor) 145 mg DAILY PO Last administered on 08/16/18at 08:01; Admin Dose 145 MG; Start 08/15/18 at 09:00 Piperacillin Sod/ Tazobactam Sod 100 ml @ 25 mls/hr Q6 IVPB Last administered on 08/16/18at 12:00; Admin Dose 25 MLS/HR; Start 08/15/18 at 06:00 Hydromorphone HCl (Dilaudid) 0.5 mg Q6H PRN IV PAIN LEVEL 6-10; Start 08/15/18 at 16:00 Acetaminophen/ Hydrocodone Bitart ([place] (5/325)) 1 tab Q6H PRN PO PAIN LEVEL 6-10; Start 08/15/18 at 16:00 Acetaminophen (Tylenol Tab) 650 mg Q6H PRN PO MILD PAIN(1-3)OR ELEVATED TEMP Last administered on 08/16/18at 02:42; Admin Dose 650 MG; Start 08/15/18 at 16:00 Diphenhydramine HCl (Benadryl) 25 mg Q6H PRN IV ITCHING; Start 08/15/18 at 16:00 Metoclopramide HCl (Reglan) 10 mg Q6H PRN IV NAUSEA AND/OR VOMITING; Start 08/15/18 at 16:00 Ondansetron HCl (Zofran Inj) 4 mg Q6H PRN IV NAUSEA AND/OR VOMITING Last administered on 08/16/18at 09:52; Admin Dose 4 MG; Start 08/15/18 at 16:00 Phenol (Cepastat Lozenge) 1 lozenge PRN PRN MT SORE THROAT; Start 08/15/18 at 16:00 Insulin Glargine (Lantus) 12 units DAILY@2000 SC Last administered on 08/15/18at 18:00; Admin Dose 12 UNITS; Start 08/15/18 at 18:00 Insulin Aspart (Novolog Insulin Pen) NOVOLOG *MILD* ALGORITHM WITH MEALS BEDTIME SC Last administered on 08/16/18at 12:14; Admin Dose 4 UNIT; Start at 08:00 Insulin Aspart (Novolog Insulin Pen) 7 unit WITH MEALS SC ; Start 08/16/18 at 17:35; Status UNV JACI MILNER NP Aug 16, 2018 15:01
[2018-08-16 20:00] VITALS: BP 132/81; PULSE 90; RESP 18
[2018-08-16] MEDS: ZOLPIDEM 5 MG TAB PO PRN (21:57)
[2018-08-16] MEDS: INSULIN GLARGINE [LANTus] (100 UNITS/ML) SYG SC SCH (21:59)
[2018-08-17 02:00] VITALS: BP 117/66; PULSE 94; RESP 18
[2018-08-17] MEDS: ACCU-CHEK XX SCH (02:00)
[2018-08-17] MEDS ORDERED: ACCU-CHEK XX SCH (02:00)
[2018-08-17] MEDS: PANTOPRAZOLE 40 MG INJ IV SCH (05:42)
[2018-08-17] MEDS: PIPER-TAZO 3.375 GM IV (PMX) 100 ML IVPB SCH ×2 (05:42→12:08)
[2018-08-17] MEDS: HYDROCODONE/APAP (5/325) TAB PO PRN ×3 (05:51→21:55)
[2018-08-17 08:00] VITALS: BP 150/83; PULSE 90; RESP 18
[2018-08-17] MEDS: INSULIN ASPART [NOVOLOG] 3 ML PEN SC SCH ×7 (08:00→20:25)
[2018-08-17] MEDS: FISH OIL 1,000 MG CAP PO SCH (08:54)
[2018-08-17] MEDS: POTASSIUM CHLORIDE (SR) 20 MEQ TAB PO SCH ×2 (08:54→12:09)
[2018-08-17] MEDS: FENOFIBRATE 145 MG TAB PO SCH (08:55)
[2018-08-17] MEDS: HEPARIN 5,000 UNIT/1 ML VIAL SC SCH ×2 (08:58→20:25)
[2018-08-17 14:23] VITALS: BP 145/79; PULSE 87; RESP 15
--- NOTE | 2018-08-17 14:26 | PN ---
Date/Time of Note Date/Time of Note DATE: 08/17/18 TIME: 13:11 Assessment/Plan VTE Prophylaxis Risk score (from Ns)>0 risk: 4 SCD applied (from Ns): No SCD contraindicated: other Pharmacological prophylaxis: heparin Lines/Catheters IV Catheter Type [facility]from [facility]): Saline Lock Assessment/Plan Hospital Course S: Patient tolerating diet, sugars improved with insulin adjustment made yeste rday. O: VS- see below PE: Gen: lying in bed, no acute distress Eyes: PERRL, no icterus HEENT: Pupils equal round reactive to light, extraocular muscles are intact Neck: Supple, no lymphadenopathy Card: Regular rate and rhythm, no murmurs Pulm: Clear to auscultation bilaterally Abd: Soft, surgical site covered in bandage Ext: No cyanosis/clubbing/edema Neuro: No focal deficits A/P: 68-year-old female presents with epigastric right upper quadrant pain, sepsis likely secondary to UTI and secondary to cholecystitis. #Sepsis - likely secondary to UTI, but could also be possible signs of ch olecystitis although her LFTs were normal. Urine culture is positive for both Proteus and ESBL E. coli. Positive for ESBL E. coli bacteremia 1 bottle as well as ESBL E. coli wound culture positive. -Continue broad-spectrum antibiotics per ID team for now given the sensitivities, follow-up final urine and wound culture results and follow-up ID recommendations -Tylenol PRN pain fever -Replete low electrolytes as needed -Continue PT #Right upper quadrant pain: Again her gallbladder ultrasound on admission showed signs of possible cholecystitis. Patient is status post laparoscopic cholecys tectomy postop day # 2 -Follow-up postoperative recommendations from surgery team including pain co ntrol medications, and continue antibiotics, diet #Diabetes: Sugars much improved over the last 24 hours, A1c was 7.8 -Continue sliding scale, aspart 7 units with meals, Lantus to 20 units nightly #High cholesterol: Monitor for now #Hypertension: Blood pressure stable -Continue current medications Result Diagram: 08/17/18 0608 08/17/18 0608 Results 24hrs Laboratory Tests Test 08/16/18 17:39 08/16/18 21:22 08/17/18 06:08 08/17/18 08:43 Bedside Glucose 239 H 165 148 White Blood Count 15.3 H Red Blood Count 3.47 L Hemoglobin 10.3 L Hematocrit 30.3 L Mean Corpuscular 87.3 Volume Mean Corpuscular 29.7 Hemoglobin Mean Corpuscular 34.0 Hemoglobin Concent Red Cell 12.7 Distribution Width Platelet Count 264 Mean Platelet Volume 10.4 Immature 0.900 H Granulocytes % Neutrophils % 79.6 H Lymphocytes % 11.9 L Monocytes % 6.8 Eosinophils % 0.5 Basophils % 0.3 Nucleated Red Blood 0.0 Cells % Immature 0.130 H Granulocytes # Neutrophils # 12.2 H Lymphocytes # 1.8 Monocytes # 1.0 H Eosinophils # 0.1 Basophils # 0.1 Nucleated Red Blood 0.0 Cells # Sodium Level 140 Potassium Level 2.7 *L Chloride Level 106 Carbon Dioxide Level 25 Anion Gap 9 Blood Urea Nitrogen 9 Creatinine 0.52 Est Glomerular > 60 Filtrat Rate mL/min Glucose Level 139 # Calcium Level 8.1 L Test 08/17/18 12:05 Bedside Glucose 128 Exam/Review of Systems Exam Vitals Vital Signs Date Temp Pulse Resp B/P (MAP) Pulse Ox O2 O2 Flow FiO2 Time Delivery Rate 08/17/18 98.4 90 18 150/83 92 Nasal 08:00 (105) Cannula 08/15/18 3.0 16:38 Intake and Output 08/16/18 08/16/18 08/17/18 1515:00 23:00 07:00 IntakeIntake Total 300 ml 1060 ml 100 ml OutputOutput Total 50 ml 40 ml BalanceBalance 300 ml 1010 ml 60 ml Results Results 24hrs Laboratory Tests Test 08/16/18 17:39 08/16/18 21:22 08/17/18 06:08 08/17/18 08:43 Bedside Glucose 239 H 165 148 White Blood Count 15.3 H Red Blood Count 3.47 L Hemoglobin 10.3 L Hematocrit 30.3 L Mean Corpuscular 87.3 Volume Mean Corpuscular 29.7 Hemoglobin Mean Corpuscular 34.0 Hemoglobin Concent Red Cell 12.7 Distribution Width Platelet Count 264 Mean Platelet Volume 10.4 Immature 0.900 H Granulocytes % Neutrophils % 79.6 H Lymphocytes % 11.9 L Monocytes % 6.8 Eosinophils % 0.5 Basophils % 0.3 Nucleated Red Blood 0.0 Cells % Immature 0.130 H Granulocytes # Neutrophils # 12.2 H Lymphocytes # 1.8 Monocytes # 1.0 H Eosinophils # 0.1 Basophils # 0.1 Nucleated Red Blood 0.0 Cells # Sodium Level 140 Potassium Level 2.7 *L Chloride Level 106 Carbon Dioxide Level 25 Anion Gap 9 Blood Urea Nitrogen 9 Creatinine 0.52 Est Glomerular > 60 Filtrat Rate mL/min Glucose Level 139 # Calcium Level 8.1 L Test 08/17/18 12:05 Bedside Glucose 128 Medications Medication Current Medications IV Flush (NS 3 ml) 3 ml PER PROTOCOL IV ; Start 08/14/18 at 16:30 Acetaminophen/ Hydrocodone Bitart ([place] (5/325)) 1 tab Q6H PRN PO .MOD PAIN 4- 6 Last administered on 08/17/18at 05:51; Admin Dose 1 TAB; Start 08/14/18 at 16:30 Morphine Sulfate (morphine) 2 mg Q4H PRN IV .SEVERE PAIN 7-10 Last administered on 08/16/18at 00:39; Admin Dose 2 MG; Start 08/14/18 at 16:30 Docusate Sodium (Colace) 100 mg Q12H PRN PO .CONSTIPATION; Start 08/14/18 at 16:30 Magnesium Hydroxide (Milk Of Mag) 30 ml DAILY PRN PO .CONSTIPATION; Start 08/14/18 at 16:30 Pantoprazole (Protonix Iv) 40 mg DAILY@06 IV Last administered on 08/17/18at 05:42; Admin Dose 40 MG; Start 08/15/18 at 06:00 Heparin Sodium (Porcine) (Heparin (5000 Units/1ml)) 5,000 unit Q12 SC Last administered on 08/17/18at 08:58; Admin Dose 5,000 UNIT; Start 08/14/18 at 21:00 Lorazepam (Ativan) 0.5 mg Q6H PRN IV ANXIETY; Start 08/14/18 at 16:30 Albuterol/ Ipratropium (Duoneb) 3 ml Q4H RESP THERAPY PRN HHN SHORTNESS OF BREATH; Start 08/14/18 at 16:30 Hydralazine HCl (Apresoline) 10 mg Q6H PRN IV ELEVATED BLOOD PRESSURE; Start 08/14/18 at 16:30 Nitroglycerin (Nitroglycerin (Sl Tab) 0.4 Mg) 1 tab Q5M PRN SL ANGINA; Start 08/14/18 at 16:30 Clonidine (Catapres) 0.1 mg BID PO Last administered on 08/17/18at 08:54; Admin Dose 0.1 MG; Start 08/14/18 at 21:00 Fish Oil (Fish Oil) 1,000 mg DAILY PO Last administered on 08/17/18at 08:54; Admin Dose 1,000 MG; Start 08/15/18 at 09:00 Diagnostic Test (Pha) (Accu-Chek) 1 ea 02 XX Last administered on 08/16/18at 02:27; Admin Dose 1 EA; Start 08/15/18 at 02:00 Miscellaneous Information 1 ea NOTE XX ; Start 08/14/18 at 16:30 Glucose (Glutose) 15 gm Q15M PRN PO DECREASED GLUCOSE; Start 08/14/18 at 16:30 Glucose (Glutose) 22.5 gm Q15M PRN PO DECREASED GLUCOSE; Start 08/14/18 at 16:30 Dextrose (D50w Syringe) 25 ml Q15M PRN IV DECREASED GLUCOSE; Start 08/14/18 at 16:30 Dextrose (D50w Syringe) 50 ml Q15M PRN IV DECREASED GLUCOSE; Start 08/14/18 at 16:30 Glucagon (Glucagen) 1 mg Q15M PRN IM DECREASED GLUCOSE; Start 08/14/18 at 16:30 Glucose (Glutose) 15 gm Q15M PRN BUCCAL DECREASED GLUCOSE; Start 08/14/18 at 16:30 Fenofibrate (Tricor) 145 mg DAILY PO Last administered on 08/17/18at 08:55; Admin Dose 145 MG; Start 08/15/18 at 09:00 Piperacillin Sod/ Tazobactam Sod 100 ml @ 25 mls/hr Q6 IVPB Last administered on 08/17/18at 12:08; Admin Dose 25 MLS/HR; Start 08/15/18 at 06:00 Hydromorphone HCl (Dilaudid) 0.5 mg Q6H PRN IV PAIN LEVEL 6-10; Start 08/15/18 at 16:00 Acetaminophen/ Hydrocodone Bitart ([place] (5/325)) 1 tab Q6H PRN PO PAIN LEVEL 6-10 Last administered on 08/16/18at 15:30; Admin Dose 1 TAB; Start 08/15/18 at 16:00 Acetaminophen (Tylenol Tab) 650 mg Q6H PRN PO MILD PAIN(1-3)OR ELEVATED TEMP Last administered on 08/16/18at 02:42; Admin Dose 650 MG; Start 08/15/18 at 16:00 Diphenhydramine HCl (Benadryl) 25 mg Q6H PRN IV ITCHING; Start 08/15/18 at 16:00 Metoclopramide HCl (Reglan) 10 mg Q6H PRN IV NAUSEA AND/OR VOMITING; Start 08/15/18 at 16:00 Ondansetron HCl (Zofran Inj) 4 mg Q6H PRN IV NAUSEA AND/OR VOMITING Last administered on 08/16/18 09:52; Admin Dose 4 MG; Start 08/15/18 at 16:00 Phenol (Cepastat Lozenge) 1 lozenge PRN PRN MT SORE THROAT; Start 08/15/18 at 16:00 Insulin Aspart (Novolog Insulin Pen) NOVOLOG *MILD* ALGORITHM WITH MEALS BEDTIME SC Last administered on 08/16/18at 17:43; Admin Dose 3 UNIT; Start 08/16/18 at 08:00 Insulin Aspart (Novolog Insulin Pen) 7 unit WITH MEALS SC Last administered on 08/17/18at 12:08; Admin Dose 7 UNIT; Start 08/16/18 at 17:35 Insulin Glargine (Lantus) 20 units DAILY@2000 SC Last administered on 08/16/18 21:59; Admin Dose 20 UNITS; Start 08/16/18 at 20:00 Zolpidem Tartrate (Ambien) 2.5 mg HS PRN PO INSOMNIA Last administered on 08/16/18at 21:57; Admin Dose 2.5 MG; Start 08/16/18 at 18:00 MARCELINO ROCA Aug 17, 2018 14:26
--- NOTE | 2018-08-17 14:47 | CONS ---
Assessment/Plan Assessment/Plan Hospital Course (Demo Recall) No acute changes overnight. Patient is sleeping, looks comfortable. WBC today 15.3 neutrophils 79.6. Microbiology: Blood culture growing E. coli ESBL, urine culture positive for Proteus and E. coli ESBL. Antimicrobials: Zosyn status post cefepime Physical examination well-developed elderly woman in no distress. Head atraumatic normocephalic sclera nonicteric. Neck is supple chest rise symmetrical, breath sounds clear, abdomen soft bowel sounds hypoactive mild tenderness on palpation, patient has RUBEN. Extremities without cyanosis. Assessment: 1. Sepsis on admission 2. E. coli ESBL bacteremia likely secondary to #3 3. Acute cholecystitis status post lap cholecystectomy 4. Urinary tract infection 5. Diabetes Plan: Patient remained stable, pending repeat blood cultures, change antibiotics to IV Invanz and anticipate treating for 10 more days Consultation Date/Type/Reason Admit Date/Time Aug 14, 2018 at 16:06 Initial Consult Date 08/14/18 Type of Consult ID Date/Time of Note DATE: 08/17/18 TIME: 14:45 Exam/Review of Systems Exam Vitals Vital Signs Date Temp Pulse Resp B/P (MAP) Pulse Ox O2 O2 Flow FiO2 Time Delivery Rate 08/17/18 97.8 87 15 145/79 97 Nasal 14:23 (101) Cannula 08/15/18 3.0 16:38 Intake and Output 08/16/18 08/16/18 08/17/18 1515:00 23:00 07:00 IntakeIntake Total 300 ml 1060 ml 100 ml OutputOutput Total 50 ml 40 ml BalanceBalance 300 ml 1010 ml 60 ml Results Result Diagram: 08/17/18 0608 08/17/18 0608 Results 24hrs Laboratory Tests Test 08/16/18 17:39 08/16/18 21:22 08/17/18 06:08 08/17/18 08:43 Bedside Glucose 239 H 165 148 White Blood Count 15.3 H Red Blood Count 3.47 L Hemoglobin 10.3 L Hematocrit 30.3 L Mean Corpuscular 87.3 Volume Mean Corpuscular 29.7 Hemoglobin Mean Corpuscular 34.0 Hemoglobin Concent Red Cell 12.7 Distribution Width Platelet Count 264 Mean Platelet Volume 10.4 Immature 0.900 H Granulocytes % Neutrophils % 79.6 H Lymphocytes % 11.9 L Monocytes % 6.8 Eosinophils % 0.5 Basophils % 0.3 Nucleated Red Blood 0.0 Cells % Immature 0.130 H Granulocytes # Neutrophils # 12.2 H Lymphocytes # 1.8 Monocytes # 1.0 H Eosinophils # 0.1 Basophils # 0.1 Nucleated Red Blood 0.0 Cells # Sodium Level 140 Potassium Level 2.7 *L Chloride Level 106 Carbon Dioxide Level 25 Anion Gap 9 Blood Urea Nitrogen 9 Creatinine 0.52 Est Glomerular > 60 Filtrat Rate mL/min Glucose Level 139 # Calcium Level 8.1 L Test 08/17/18 12:05 Bedside Glucose 128 Medications Medication Current Medications IV Flush (NS 3 ml) 3 ml PER PROTOCOL IV ; Start 08/14/18 at 16:30 Acetaminophen/ Hydrocodone Bitart ([place] (5/325)) 1 tab Q6H PRN PO .MOD PAIN 4- 6 Last administered on 08/17/18at 05:51; Admin Dose 1 TAB; Start 08/14/18 at 16:30 Morphine Sulfate (morphine) 2 mg Q4H PRN IV .SEVERE PAIN 7-10 Last administered on 08/16/18at 00:39; Admin Dose 2 MG; Start 08/14/18 at 16:30 Docusate Sodium (Colace) 100 mg Q12H PRN PO .CONSTIPATION; Start 08/14/18 at 16:30 Magnesium Hydroxide (Milk Of Mag) 30 ml DAILY PRN PO .CONSTIPATION; Start 08/14/18 at 16:30 Pantoprazole (Protonix Iv) 40 mg DAILY@06 IV Last administered on 08/17/18at 05:42; Admin Dose 40 MG; Start 08/15/18 at 06:00 Heparin Sodium (Porcine) (Heparin (5000 Units/1ml)) 5,000 unit Q12 SC Last administered on 08/17/18at 08:58; Admin Dose 5,000 UNIT; Start 08/14/18 at 21:00 Lorazepam (Ativan) 0.5 mg Q6H PRN IV ANXIETY; Start 08/14/18 at 16:30 Albuterol/ Ipratropium (Duoneb) 3 ml Q4H RESP THERAPY PRN HHN SHORTNESS OF BREATH; Start 08/14/18 at 16:30 Hydralazine HCl (Apresoline) 10 mg Q6H PRN IV ELEVATED BLOOD PRESSURE; Start 08/14/18 at 16:30 Nitroglycerin (Nitroglycerin (Sl Tab) 0.4 Mg) 1 tab Q5M PRN SL ANGINA; Start 08/14/18 at 16:30 Clonidine (Catapres) 0.1 mg BID PO Last administered on 08/17/18at 08:54; Admin Dose 0.1 MG; Start 08/14/18 at 21:00 Fish Oil (Fish Oil) 1,000 mg DAILY PO Last administered on 08/17/18at 08:54; Admin Dose 1,000 MG; Start 08/15/18 at 09:00 Diagnostic Test (Pha) (Accu-Chek) 1 ea 02 XX Last administered on 08/16/18at 02:27; Admin Dose 1 EA; Start 08/15/18 at 02:00 Miscellaneous Information 1 ea NOTE XX ; Start 08/14/18 at 16:30 Glucose (Glutose) 15 gm Q15M PRN PO DECREASED GLUCOSE; Start 08/14/18 at 16:30 Glucose (Glutose) 22.5 gm Q15M PRN PO DECREASED GLUCOSE; Start 08/14/18 at 16:30 Dextrose (D50w Syringe) 25 ml Q15M PRN IV DECREASED GLUCOSE; Start 08/14/18 at 16:30 Dextrose (D50w Syringe) 50 ml Q15M PRN IV DECREASED GLUCOSE; Start 08/14/18 at 16:30 Glucagon (Glucagen) 1 mg Q15M PRN IM DECREASED GLUCOSE; Start 08/14/18 at 16:30 Glucose (Glutose) 15 gm Q15M PRN BUCCAL DECREASED GLUCOSE; Start 08/14/18 at 16:30 Fenofibrate (Tricor) 145 mg DAILY PO Last administered on 08/17/18at 08:55; Admin Dose 145 MG; Start 08/15/18 at 09:00 Piperacillin Sod/ Tazobactam Sod 100 ml @ 25 mls/hr Q6 IVPB Last administered on 08/17/18at 12:08; Admin Dose 25 MLS/HR; Start 08/15/18 at 06:00 Hydromorphone HCl (Dilaudid) 0.5 mg Q6H PRN IV PAIN LEVEL 6-10; Start 08/15/18 at 16:00 Acetaminophen/ Hydrocodone Bitart ([place] (5/325)) 1 tab Q6H PRN PO PAIN LEVEL 6-10 Last administered on 08/16/18 15:30; Admin Dose 1 TAB; Start 08/15/18 at 16:00 Acetaminophen (Tylenol Tab) 650 mg Q6H PRN PO MILD PAIN(1-3)OR ELEVATED TEMP Last administered on 08/16/18 02:42; Admin Dose 650 MG; Start 08/15/18 at 16:00 Diphenhydramine HCl (Benadryl) 25 mg Q6H PRN IV ITCHING; Start 08/15/18 at 16:00 Metoclopramide HCl (Reglan) 10 mg Q6H PRN IV NAUSEA AND/OR VOMITING; Start 07/24 08/10 at 16:00 Ondansetron HCl (Zofran Inj) 4 mg Q6H PRN IV NAUSEA AND/OR VOMITING Last administered on 08/16/18 09:52; Admin Dose 4 MG; Start 08/15/18 at 16:00 Phenol (Cepastat Lozenge) 1 lozenge PRN PRN MT SORE THROAT; Start 08/15/18 at 16:00 Insulin Aspart (Novolog Insulin Pen) NOVOLOG *MILD* ALGORITHM WITH MEALS BEDTIME SC Last administered on 08/16/18 17:43; Admin Dose 3 UNIT; Start 07/24 09/09 at 08:00 Insulin Aspart (Novolog Insulin Pen) 7 unit WITH MEALS SC Last administered on 08/17/18 12:08; Admin Dose 7 UNIT; Start 08/16/18 at 17:35 Insulin Glargine (Lantus) 20 units DAILY@2000 SC Last administered on 08/16/18 21:59; Admin Dose 20 UNITS; Start 08/16/18 at 20:00 Zolpidem Tartrate (Ambien) 2.5 mg HS PRN PO INSOMNIA Last administered on 08/16/18 21:57; Admin Dose 2.5 MG; Start 08/16/18 at 18:00 JACI MILNER NP Aug 17, 2018 14:47
[2018-08-17] MEDS: ERTAPENEM SODIUM 1 GM in SOD CHLORIDE 0.9% 100 ML IVPB SCH (16:40)
[2018-08-17] MEDS: morphine 2 MG INJ IV PRN (16:51)
[2018-08-17 19:54] VITALS: BP 139/76; PULSE 80; RESP 18
[2018-08-17] MEDS: INSULIN GLARGINE [LANTus] (100 UNITS/ML) SYG SC SCH (20:25)
--- NOTE | 2018-08-17 20:40 | PN ---
Date/Time of Note Date/Time of Note DATE: 08/17/18 TIME: 20:37 Assessment/Plan Lines/Catheters IV Catheter Type (from Nrs): Peripheral IV Assessment/Plan Chief Complaint/Hosp Course admitted with Sepsis -- most likely secondary to Acute Cholecystitis -- intraop gallbladder was tense and distended with abnormal anatomy. POD 2 doing better wbc slowly decreasing Subjective 24 Hr Interval Summary Constitutional: no complaints, improved, ambulates, BM, flatus Pain Control: mild Exam/Review of Systems Vital Signs Vitals Vital Signs Date Temp Pulse Resp B/P (MAP) Pulse Ox O2 O2 Flow FiO2 Time Delivery Rate 08/17/18 99.0 80 18 139/76 98 19:54 (97) 08/17/18 Nasal 14:23 Cannula 08/15/18 3.0 16:38 Intake and Output 08/16/18 08/16/18 08/17/18 1515:00 23:00 07:00 IntakeIntake Total 300 ml 1060 ml 100 ml OutputOutput Total 50 ml 40 ml BalanceBalance 300 ml 1010 ml 60 ml Exam Constitutional: alert, oriented, well developed Psych: no complaints Head: normocephalic, atraumatic Eyes: nl conjunctiva Neck: supple Respiratory: clear to auscultation Cardiovascular: regular rate and rhythm Gastrointestinal: soft, surgical scars Musculoskeletal: No nl extremities to inspection, No nl gait and stance, No joint tenderness, No muscle tone, No muscle weakness, No range of motion, No spine non-tender, No swelling, No other Extremities: No normal pulses, No calf tenderness, No cyanosis, No clubbing, No edema, No pitting pedal edema, No palpable cord, No tenderness, No other Skin: No nl turgor, No rash or lesions, No diaphoresis, No ecchymosis, No laceration, No puncture, No other Results Result Diagram: 08/17/18 0608 08/17/18 0608 LUKASZ COLBY MD Aug 17, 2018 20:40
[2018-08-18] MEDS: ACCU-CHEK XX SCH (02:00)
[2018-08-18 02:52] VITALS: BP 148/89; RESP 20
[2018-08-18] MEDS: PANTOPRAZOLE 40 MG INJ IV SCH (05:40)
[2018-08-18] MEDS: HYDROCODONE/APAP (5/325) TAB PO PRN ×3 (05:45→19:58)
[2018-08-18 07:53] VITALS: BP 138/85; PULSE 74; RESP 20
[2018-08-18] MEDS: INSULIN ASPART [NOVOLOG] 3 ML PEN SC SCH ×7 (08:00→21:00)
[2018-08-18] MEDS: FENOFIBRATE 145 MG TAB PO SCH (08:07)
[2018-08-18] MEDS: FISH OIL 1,000 MG CAP PO SCH (08:08)
[2018-08-18] MEDS: HEPARIN 5,000 UNIT/1 ML VIAL SC SCH ×2 (08:09→21:07)
[2018-08-18 14:30] VITALS: BP 138/85; PULSE 89; RESP 16
--- NOTE | 2018-08-18 15:41 | CONS ---
Assessment/Plan Assessment/Plan Hospital Course (Demo Recall) ID PROGRESS NOTE CURRENT ABX=Day # => ERTAPENEM 24H INTERVAL SUMMARY * A/A/O -- very pleasant, polite lady and spouse * She still has ABD pain -- passing gas, no stool * VSS, no fevers * Microbiology: Blood culture growing E. coli ESBL, urine culture positive for Proteus and E. coli ESBL. PHYSICAL EXAMINATION: GENERAL:VSS, NAD HEENT: Unremarkable NECK: Supple, trachea midline. CHEST: Rise symmetrical, without dyspnea on observation HEART: Pulse RRR ABDOMEN: Soft, ND EXTREMITIES: Warm, moves all extremities ID ASSESSMENT 68 yo F admit with: 1. Sepsis on admission 2. E. coli ESBL bacteremia likely secondary to #3 3. Acute cholecystitis status post lap cholecystectomy 4. Urinary tract infection 5. Diabetes INVASIVES: RUBEN drain ABX ALLERGY: KNDA CURRENT ABX: => ERTAPENEM ID RECOMMENDATIONS 1. Continue INVANZ x 9 more days per ID [employer] colleague note 2. Increase mobility . Consultation Date/Type/Reason Admit Date/Time Aug 14, 2018 at 16:06 Initial Consult Date 08/14/18 Date/Time of Note DATE: 08/18/18 TIME: 15:40 Exam/Review of Systems Exam Vitals Vital Signs Date Temp Pulse Resp B/P (MAP) Pulse Ox O2 O2 Flow FiO2 Time Delivery Rate 08/18/18 98.1 89 16 138/85 91 14:30 (102) 08/17/18 Nasal 14:23 Cannula 08/15/18 3.0 16:38 Intake and Output 08/17/18 08/17/18 08/18/18 1515:00 23:00 07:00 IntakeIntake Total 600 ml 550 ml 320 ml OutputOutput Total 35 ml BalanceBalance 600 ml 515 ml 320 ml Results Result Diagram: 08/18/18 0532 08/18/18 0532 Results 24hrs Laboratory Tests Test 08/17/18 17:00 08/17/18 20:19 08/18/18 05:32 08/18/18 07:58 Bedside Glucose 103 87 108 White Blood Count 16.1 H Red Blood Count 3.62 L Hemoglobin 10.7 L Hematocrit 31.9 L Mean Corpuscular 88.1 Volume Mean Corpuscular 29.6 Hemoglobin Mean Corpuscular 33.5 Hemoglobin Concent Red Cell 12.7 Distribution Width Platelet Count 325 # Mean Platelet Volume 10.2 Immature 0.900 H Granulocytes % Neutrophils % 73.9 Lymphocytes % 15.2 Monocytes % 8.2 Eosinophils % 1.2 Basophils % 0.6 Nucleated Red Blood 0.0 Cells % Immature 0.150 H Granulocytes # Neutrophils # 11.9 H Lymphocytes # 2.4 Monocytes # 1.3 H Eosinophils # 0.2 Basophils # 0.1 Nucleated Red Blood 0.0 Cells # Sodium Level 142 Potassium Level 3.9 Chloride Level 107 Carbon Dioxide Level 28 Anion Gap 7 Blood Urea Nitrogen 6 L Creatinine 0.48 Est Glomerular > 60 Filtrat Rate mL/min Glucose Level 112 Calcium Level 8.5 Phosphorus Level 1.6 #L Magnesium Level 1.9 Total Bilirubin 0.4 Direct Bilirubin 0.00 Indirect Bilirubin 0.4 Aspartate Amino 53 H Transf (AST/SGOT) Alanine 67 Aminotransferase (AL T/SGPT) Alkaline Phosphatase 97 # Total Protein 6.5 Albumin 3.2 L Globulin 3.30 H Albumin/Globulin 0.96 Ratio Test 08/18/18 12:14 Bedside Glucose 109 Medications Medication Current Medications IV Flush (NS 3 ml) 3 ml PER PROTOCOL IV ; Start 08/14/18 at 16:30 Acetaminophen/ Hydrocodone Bitart ([place] (5/325)) 1 tab Q6H PRN PO .MOD PAIN 4- 6 Last administered on 08/18/18at 12:22; Admin Dose 1 TAB; Start 08/14/18 at 16:30 Morphine Sulfate (morphine) 2 mg Q4H PRN IV .SEVERE PAIN 7-10 Last administered on 08/17/18at 16:51; Admin Dose 2 MG; Start 08/14/18 at 16:30 Docusate Sodium (Colace) 100 mg Q12H PRN PO .CONSTIPATION; Start 08/14/18 at 16:30 Magnesium Hydroxide (Milk Of Mag) 30 ml DAILY PRN PO .CONSTIPATION; Start 08/14/18 at 16:30 Pantoprazole (Protonix Iv) 40 mg DAILY@06 IV Last administered on 08/18/18at 05:40; Admin Dose 40 MG; Start 08/15/18 at 06:00 Heparin Sodium (Porcine) (Heparin (5000 Units/1ml)) 5,000 unit Q12 SC Last administered on 08/18/18at 08:09; Admin Dose 5,000 UNIT; Start 08/14/18 at 21:00 Lorazepam (Ativan) 0.5 mg Q6H PRN IV ANXIETY; Start 08/14/18 at 16:30 Albuterol/ Ipratropium (Duoneb) 3 ml Q4H RESP THERAPY PRN HHN SHORTNESS OF BREATH; Start 08/14/18 at 16:30 Hydralazine HCl (Apresoline) 10 mg Q6H PRN IV ELEVATED BLOOD PRESSURE; Start 08/14/18 at 16:30 Nitroglycerin (Nitroglycerin (Sl Tab) 0.4 Mg) 1 tab Q5M PRN SL ANGINA; Start 08/14/18 at 16:30 Clonidine (Catapres) 0.1 mg BID PO Last administered on 08/18/18at 08:08; Admin Dose 0.1 MG; Start 08/14/18 at 21:00 Fish Oil (Fish Oil) 1,000 mg DAILY PO Last administered on 08/18/18at 08:08; Ad min Dose 1,000 MG; Start 08/15/18 at 09:00 Diagnostic Test (Pha) (Accu-Chek) 1 ea 02 XX Last administered on 08/16/18at 02:27; Admin Dose 1 EA; Start 08/15/18 at 02:00 Miscellaneous Information 1 ea NOTE XX ; Start 08/14/18 at 16:30 Glucose (Glutose) 15 gm Q15M PRN PO DECREASED GLUCOSE; Start 08/14/18 at 16:30 Glucose (Glutose) 22.5 gm Q15M PRN PO DECREASED GLUCOSE; Start 08/14/18 at 16:30 Dextrose (D50w Syringe) 25 ml Q15M PRN IV DECREASED GLUCOSE; Start 08/14/18 at 16:30 Dextrose (D50w Syringe) 50 ml Q15M PRN IV DECREASED GLUCOSE; Start 08/14/18 at 16:30 Glucagon (Glucagen) 1 mg Q15M PRN IM DECREASED GLUCOSE; Start 08/14/18 at 16:30 Glucose (Glutose) 15 gm Q15M PRN BUCCAL DECREASED GLUCOSE; Start 08/14/18 at 16:30 Fenofibrate (Tricor) 145 mg DAILY PO Last administered on 08/18/18at 08:07; Admin Dose 145 MG; Start 08/15/18 at 09:00 Hydromorphone HCl (Dilaudid) 0.5 mg Q6H PRN IV PAIN LEVEL 6-10; Start 08/15/18 at 16:00 Acetaminophen/ Hydrocodone Bitart ([place] (5/325)) 1 tab Q6H PRN PO PAIN LEVEL 6-10 Last administered on 08/16/18 15:30; Admin Dose 1 TAB; Start 08/15/18 at 16:00 Acetaminophen (Tylenol Tab) 650 mg Q6H PRN PO MILD PAIN(1-3)OR ELEVATED TEMP Last administered on 08/16/18 02:42; Admin Dose 650 MG; Start 08/15/18 at 16:00 Diphenhydramine HCl (Benadryl) 25 mg Q6H PRN IV ITCHING; Start 08/15/18 at 16:00 Metoclopramide HCl (Reglan) 10 mg Q6H PRN IV NAUSEA AND/OR VOMITING; Start 08/15/18 at 16:00 Ondansetron HCl (Zofran Inj) 4 mg Q6H PRN IV NAUSEA AND/OR VOMITING Last administered on 08/16/18 09:52; Admin Dose 4 MG; Start 08/15/18 at 16:00 Phenol (Cepastat Lozenge) 1 lozenge PRN PRN MT SORE THROAT; Start 08/15/18 at 16:00 Insulin Aspart (Novolog Insulin Pen) NOVOLOG *MILD* ALGORITHM WITH MEALS BEDTIME SC Last administered on 08/16/18 17:43; Admin Dose 3 UNIT; Start 08/16/18 at 08:00 Insulin Aspart (Novolog Insulin Pen) 7 unit WITH MEALS SC Last administered on 08/18/18 12:21; Admin Dose 7 UNIT; Start 08/16/18 at 17:35 Insulin Glargine (Lantus) 20 units DAILY@2000 SC Last administered on 08/17/18 20:25; Admin Dose 20 UNITS; Start 08/16/18 at 20:00 Zolpidem Tartrate (Ambien) 2.5 mg HS PRN PO INSOMNIA Last administered on 08/16/18 21:57; Admin Dose 2.5 MG; Start 08/16/18 at 18:00 Ertapenem 1 gm/ Sodium Chloride 100 ml @ 200 mls/hr Q24H IVPB Last administered on 4/26/19at 16:40; Admin Dose 200 MLS/HR; Start 08/17/18 at 16:00 RHONDA MONTES NP Aug 18, 2018 15:41
[2018-08-18] MEDS: ERTAPENEM SODIUM 1 GM in SOD CHLORIDE 0.9% 100 ML IVPB SCH (16:00)
--- NOTE | 2018-08-18 17:08 | PN ---
Date/Time of Note Date/Time of Note DATE: 08/18/18 TIME: 17:02 Assessment/Plan VTE Prophylaxis Risk score (from Ns)>0 risk: 5 SCD applied (from Ns): No SCD contraindicated: other Pharmacological prophylaxis: heparin Lines/Catheters IV Catheter Type (from Nrs): Peripheral IV Assessment/Plan Hospital Course S: Patient still tolerating current diet but still having some mild abdominal pain symptoms. RUBEN drain was removed by surgery team earlier today. O: VS- see below PE: Gen: lying in bed, no acute distress Eyes: PERRL, no icterus HEENT: Pupils equal round reactive to light, extraocular muscles are intact Neck: Supple, no lymphadenopathy Card: Regular rate and rhythm, no murmurs Pulm: Clear to auscultation bilaterally Abd: Soft, surgical site covered in bandage Ext: No cyanosis/clubbing/edema Neuro: No focal deficits A/P: 68-year-old female presents with epigastric right upper quadrant pain, sepsis likely secondary to UTI and secondary to cholecystitis. #Sepsis - likely secondary to UTI, but could also be possible signs of cholecystitis although her LFTs were normal. Urine culture is positive for both Proteus and ESBL E. coli. Positive for ESBL E. coli bacteremia 1 bottle as well as ESBL E. coli wound culture positive. -Continue broad-spectrum antibiotics per ID team for now given the sensitivities, follow-up final urine and wound culture results and follow-up ID recommendations -patient will likely need ertapenem 1 g IV daily for 9 more days we will order PICC line and have case reviewer set this up for home use -Tylenol PRN pain fever -Replete low electrolytes again today. -Continue PT #Right upper quadrant pain: Again her gallbladder ultrasound on admission showed signs of possible cholecystitis. Patient is status post laparoscopic cholec ystectomy postop day # 3. -Follow-up postoperative recommendations from surgery team including pain control medications, and continue antibiotics, diet #Diabetes: Sugars much improved over the last 48 hours, A1c was 7.8 -Continue sliding scale, aspart 7 units with meals, Lantus to 20 units nightl y #High cholesterol: Monitor for now #Hypertension: Blood pressure stable -Continue current medications Result Diagram: 08/18/18 0532 08/18/18 0532 Results 24hrs Laboratory Tests Test 08/17/18 20:19 08/18/18 05:32 08/18/18 07:58 08/18/18 12:14 Bedside Glucose 87 108 109 White Blood Count 16.1 H Red Blood Count 3.62 L Hemoglobin 10.7 L Hematocrit 31.9 L Mean Corpuscular 88.1 Volume Mean Corpuscular 29.6 Hemoglobin Mean Corpuscular 33.5 Hemoglobin Concent Red Cell 12.7 Distribution Width Platelet Count 325 # Mean Platelet Volume 10.2 Immature 0.900 H Granulocytes % Neutrophils % 73.9 Lymphocytes % 15.2 Monocytes % 8.2 Eosinophils % 1.2 Basophils % 0.6 Nucleated Red Blood 0.0 Cells % Immature 0.150 H Granulocytes # Neutrophils # 11.9 H Lymphocytes # 2.4 Monocytes # 1.3 H Eosinophils # 0.2 Basophils # 0.1 Nucleated Red Blood 0.0 Cells # Sodium Level 142 Potassium Level 3.9 Chloride Level 107 Carbon Dioxide Level 28 Anion Gap 7 Blood Urea Nitrogen 6 L Creatinine 0.48 Est Glomerular > 60 Filtrat Rate mL/min Glucose Level 112 Calcium Level 8.5 Phosphorus Level 1.6 #L Magnesium Level 1.9 Total Bilirubin 0.4 Direct Bilirubin 0.00 Indirect Bilirubin 0.4 Aspartate Amino 53 H Transf (AST/SGOT) Alanine 67 Aminotransferase (AL T/SGPT) Alkaline Phosphatase 97 # Total Protein 6.5 Albumin 3.2 L Globulin 3.30 H Albumin/Globulin 0.96 Ratio Exam/Review of Systems Exam Vitals Vital Signs Date Temp Pulse Resp B/P (MAP) Pulse Ox O2 O2 Flow FiO2 Time Delivery Rate 08/18/18 98.1 89 16 138/85 91 14:30 (102) 08/17/18 Nasal 14:23 Cannula 08/15/18 3.0 16:38 Intake and Output 08/17/18 08/17/18 08/18/18 1515:00 23:00 07:00 IntakeIntake Total 600 ml 550 ml 320 ml OutputOutput Total 35 ml BalanceBalance 600 ml 515 ml 320 ml Results Results 24hrs Laboratory Tests Test 08/17/18 20:19 08/18/18 05:32 08/18/18 07:58 08/18/18 12:14 Bedside Glucose 87 108 109 White Blood Count 16.1 H Red Blood Count 3.62 L Hemoglobin 10.7 L Hematocrit 31.9 L Mean Corpuscular 88.1 Volume Mean Corpuscular 29.6 Hemoglobin Mean Corpuscular 33.5 Hemoglobin Concent Red Cell 12.7 Distribution Width Platelet Count 325 # Mean Platelet Volume 10.2 Immature 0.900 H Granulocytes % Neutrophils % 73.9 Lymphocytes % 15.2 Monocytes % 8.2 Eosinophils % 1.2 Basophils % 0.6 Nucleated Red Blood 0.0 Cells % Immature 0.150 H Granulocytes # Neutrophils # 11.9 H Lymphocytes # 2.4 Monocytes # 1.3 H Eosinophils # 0.2 Basophils # 0.1 Nucleated Red Blood 0.0 Cells # Sodium Level 142 Potassium Level 3.9 Chloride Level 107 Carbon Dioxide Level 28 Anion Gap 7 Blood Urea Nitrogen 6 L Creatinine 0.48 Est Glomerular > 60 Filtrat Rate mL/min Glucose Level 112 Calcium Level 8.5 Phosphorus Level 1.6 #L Magnesium Level 1.9 Total Bilirubin 0.4 Direct Bilirubin 0.00 Indirect Bilirubin 0.4 Aspartate Amino 53 H Transf (AST/SGOT) Alanine 67 Aminotransferase (AL T/SGPT) Alkaline Phosphatase 97 # Total Protein 6.5 Albumin 3.2 L Globulin 3.30 H Albumin/Globulin 0.96 Ratio Medications Medication Current Medications IV Flush (NS 3 ml) 3 ml PER PROTOCOL IV ; Start 08/14/18 at 16:30 Acetaminophen/ Hydrocodone Bitart (Celoron (5/325)) 1 tab Q6H PRN PO .MOD PAIN 4- 6 Last administered on 08/18/18at 12:22; Admin Dose 1 TAB; Start 08/14/18 at 16:30 Morphine Sulfate (morphine) 2 mg Q4H PRN IV .SEVERE PAIN 7-10 Last administered on 08/17/18at 16:51; Admin Dose 2 MG; Start 08/14/18 at 16:30 Docusate Sodium (Colace) 100 mg Q12H PRN PO .CONSTIPATION; Start 08/14/18 at 16:30 Magnesium Hydroxide (Milk Of Mag) 30 ml DAILY PRN PO .CONSTIPATION; Start 08/14/18 at 16:30 Pantoprazole (Protonix Iv) 40 mg DAILY@06 IV Last administered on 08/18/18at 05:40; Admin Dose 40 MG; Start 08/15/18 at 06:00 Heparin Sodium (Porcine) (Heparin (5000 Units/1ml)) 5,000 unit Q12 SC Last administered on 4/27/19at 08:09; Admin Dose 5,000 UNIT; Start 08/14/18 at 21:00 Lorazepam (Ativan) 0.5 mg Q6H PRN IV ANXIETY; Start 08/14/18 at 16:30 Albuterol/ Ipratropium (Duoneb) 3 ml Q4H RESP THERAPY PRN HHN SHORTNESS OF BREATH; Start 08/14/18 at 16:30 Hydralazine HCl (Apresoline) 10 mg Q6H PRN IV ELEVATED BLOOD PRESSURE; Start 08/14/18 at 16:30 Nitroglycerin (Nitroglycerin (Sl Tab) 0.4 Mg) 1 tab Q5M PRN SL ANGINA; Start 08/14/18 at 16:30 Clonidine (Catapres) 0.1 mg BID PO Last administered on 08/18/18at 08:08; Admin Dose 0.1 MG; Start 08/14/18 at 21:00 Fish Oil (Fish Oil) 1,000 mg DAILY PO Last administered on 08/18/18at 08:08; Admin Dose 1,000 MG; Start 08/15/18 at 09:00 Diagnostic Test (Pha) (Accu-Chek) 1 ea 02 XX Last administered on 08/16/18at 02:27; Admin Dose 1 EA; Start 08/15/18 at 02:00 Miscellaneous Information 1 ea NOTE XX ; Start 08/14/18 at 16:30 Glucose (Glutose) 15 gm Q15M PRN PO DECREASED GLUCOSE; Start 08/14/18 at 16:30 Glucose (Glutose) 22.5 gm Q15M PRN PO DECREASED GLUCOSE; Start 08/14/18 at 16:30 Dextrose (D50w Syringe) 25 ml Q15M PRN IV DECREASED GLUCOSE; Start 08/14/18 at 16:30 Dextrose (D50w Syringe) 50 ml Q15M PRN IV DECREASED GLUCOSE; Start 08/14/18 at 16:30 Glucagon (Glucagen) 1 mg Q15M PRN IM DECREASED GLUCOSE; Start 08/14/18 at 16:30 Glucose (Glutose) 15 gm Q15M PRN BUCCAL DECREASED GLUCOSE; Start 08/14/18 at 16:30 Fenofibrate (Tricor) 145 mg DAILY PO Last administered on 08/18/18at 08:07; Admin Dose 145 MG; Start 08/15/18 at 09:00 Hydromorphone HCl (Dilaudid) 0.5 mg Q6H PRN IV PAIN LEVEL 6-10; Start 08/15/18 at 16:00 Acetaminophen/ Hydrocodone Bitart (Celoron (5/325)) 1 tab Q6H PRN PO PAIN LEVEL 6-10 Last administered on 08/16/18 15:30; Admin Dose 1 TAB; Start 08/15/18 at 16:00 Acetaminophen (Tylenol Tab) 650 mg Q6H PRN PO MILD PAIN(1-3)OR ELEVATED TEMP Last administered on 08/16/18 02:42; Admin Dose 650 MG; Start 08/15/18 at 16:00 Diphenhydramine HCl (Benadryl) 25 mg Q6H PRN IV ITCHING; Start 08/15/18 at 16:00 Metoclopramide HCl (Reglan) 10 mg Q6H PRN IV NAUSEA AND/OR VOMITING; Start 08/15/18 at 16:00 Ondansetron HCl (Zofran Inj) 4 mg Q6H PRN IV NAUSEA AND/OR VOMITING Last administered on 08/16/18 09:52; Admin Dose 4 MG; Start 08/15/18 at 16:00 Phenol (Cepastat Lozenge) 1 lozenge PRN PRN MT SORE THROAT; Start 08/15/18 at 16:00 Insulin Aspart (Novolog Insulin Pen) NOVOLOG *MILD* ALGORITHM WITH MEALS BEDTIME SC Last administered on 08/16/18 17:43; Admin Dose 3 UNIT; Start 08/16/18 at 08:00 Insulin Aspart (Novolog Insulin Pen) 7 unit WITH MEALS SC Last administered on 08/18/18 12:21; Admin Dose 7 UNIT; Start 08/16/18 at 17:35 Insulin Glargine (Lantus) 20 units DAILY@2000 SC Last administered on 08/17/18 20:25; Admin Dose 20 UNITS; Start 08/16/18 at 20:00 Zolpidem Tartrate (Ambien) 2.5 mg HS PRN PO INSOMNIA Last administered on 08/16/18 21:57; Admin Dose 2.5 MG; Start 08/16/18 at 18:00 Ertapenem 1 gm/ Sodium Chloride 100 ml @ 200 mls/hr Q24H IVPB Last administered on 08/18/18at 16:00; Admin Dose 200 MLS/HR; Start 08/17/18 at 16:00 Potassium Phosphate 40 meq/ Sodium Chloride 259.0909 ml @ 64.773 m... ONCE ONCE IVPB ; Start 08/18/18 at 17:00; Stop 08/18/18 at 20:59; Status UNMARCELINO HENDERSON Aug 18, 2018 17:08
[2018-08-18] MEDS ORDERED: LIDOCAINE 1% (MPF) 5 ML VIAL SC ONE (17:30)
[2018-08-18] MEDS ORDERED: POTASSIUM PHOSPHATE 40 MEQ in SOD CHLORIDE 0.9% 250 ML IVPB ONE (18:00)
[2018-08-18 20:00] VITALS: BP 134/88; PULSE 92; RESP 18
[2018-08-18] MEDS: INSULIN GLARGINE [LANTus] (100 UNITS/ML) SYG SC SCH (21:07)
[2018-08-18] MEDS: ZOLPIDEM 5 MG TAB PO PRN (21:12)
[2018-08-19] MEDS: ACCU-CHEK XX SCH ×2 (00:08→23:34)
[2018-08-19 02:00] VITALS: BP 139/80; PULSE 90; RESP 18
[2018-08-19] MEDS: PANTOPRAZOLE 40 MG INJ IV SCH (05:15)
[2018-08-19] MEDS: morphine 2 MG INJ IV PRN ×2 (05:15→20:20)
[2018-08-19] MEDS: INSULIN ASPART [NOVOLOG] 3 ML PEN SC SCH ×7 (08:00→20:17)
[2018-08-19 08:15] VITALS: BP 131/82; PULSE 90; RESP 16
[2018-08-19] MEDS: HYDROCODONE/APAP (5/325) TAB PO PRN ×2 (08:25→18:52)
[2018-08-19] MEDS: FENOFIBRATE 145 MG TAB PO SCH (08:30)
[2018-08-19] MEDS: FISH OIL 1,000 MG CAP PO SCH (08:30)
[2018-08-19] MEDS: HEPARIN 5,000 UNIT/1 ML VIAL SC SCH ×2 (08:33→20:19)
--- NOTE | 2018-08-19 12:18 | PN ---
Date/Time of Note Date/Time of Note DATE: 08/19/18 TIME: 12:14 Assessment/Plan VTE Prophylaxis Risk score (from Ns)>0 risk: 3 SCD applied (from Ns): No SCD contraindicated: other Pharmacological prophylaxis: heparin Lines/Catheters IV Catheter Type (from Nrs): Peripheral IV Assessment/Plan Hospital Course S: Patient still tolerating current diet but still having some mild abdominal pain symptoms. RUBEN drain was removed by surgery team earlier today. O: VS- see below PE: Gen: lying in bed, no acute distress Eyes: PERRL, no icterus HEENT: Pupils equal round reactive to light, extraocular muscles are intact Neck: Supple, no lymphadenopathy Card: Regular rate and rhythm, no murmurs Pulm: Clear to auscultation bilaterally Abd: Soft, surgical site covered in bandage Ext: No cyanosis/clubbing/edema Neuro: No focal deficits A/P: 68-year-old female presents with epigastric right upper quadrant pain, sepsis likely secondary to UTI and secondary to cholecystitis. #Sepsis - likely secondary to UTI, but could also be possible signs of cholecystitis although her LFTs were normal. Urine culture is positive for both Proteus and ESBL E. coli. Positive for ESBL E. coli bacteremia 1 bottle as well as ESBL E. coli wound culture positive. -Continue broad-spectrum antibiotics per ID team for now given the sensitivities, follow-up final urine and wound culture results and follow-up ID recommendations -patient will need ertapenem 1 g IV daily for 8 more days- PICC/midline has been ordered for placement and bilingual patient support caseworker is setting all this up for home use. -Tylenol PRN pain fever -Replete low electrolytes again today (phos) -Continue PT #Right upper quadrant pain: status post laparoscopic cholecystectomy postop day # 4. -Follow-up postoperative recommendations from surgery team including pain control medications, and continue antibiotics, diet #Diabetes: Sugars much improved over the last 72 hours, A1c was 7.8 -Continue sliding scale, aspart 7 units with meals, Lantus to 20 units nightly #High cholesterol: Monitor for now #Hypertension: Blood pressure stable -Continue current medications Dispo: Likely home in 1 to 2 days once cleared by surgery team and case management has set up home health nurse for PICC line and home IV antibiotic that have been ordered Result Diagram: 08/19/18 0546 08/19/18 0546 Results 24hrs Laboratory Tests Test 08/18/18 17:43 08/18/18 21:06 08/19/18 05:46 08/19/18 08:10 Bedside Glucose 114 122 117 White Blood Count 15.2 H Red Blood Count 3.65 L Hemoglobin 10.8 L Hematocrit 31.9 L Mean Corpuscular 87.4 Volume Mean Corpuscular 29.6 Hemoglobin Mean Corpuscular 33.9 Hemoglobin Concent Red Cell 13.0 Distribution Width Platelet Count 412 # Mean Platelet Volume 9.8 Immature 2.200 H Granulocytes % Neutrophils % Segmented 61 Neutrophils % (Manual) Band Neutrophils % 1 (Manual) Lymphocytes % Lymphocytes % 17 (Manual) Reactive Lymphocytes 10 H % (Manual) Monocytes % Monocytes % (Manual) 8 Eosinophils % Eosinophils % 2 (Manual) Basophils % Basophils % (Manual) 1 Metamyelocytes % 1 H (manual) Promyelocytes % 1 H (Manual) Nucleated Red Blood 2 H Cells % Immature 0.340 H Granulocytes # Neutrophils # Neutrophils # 9.3 H (Manual) Band Neutrophils # 0.1 Lymphocytes (Manual) 2.5 Lymphocytes # Reactive Lymphocytes 1.5 H # Monocytes # Monocytes # (Manual) 1.2 H Eosinophils # Basophils # Basophils # (Manual) 0.1 H Metamyelocytes # 0.1 H Promyelocytes # 0.1 H Nucleated Red Blood Cells # Platelet Estimate NORMAL Giant Platelets 1 H Polychromasia 1+ Poikilocytosis 1+ Target Cells 1+ Sodium Level 142 Potassium Level 3.6 Chloride Level 105 Carbon Dioxide Level 25 Anion Gap 12 Blood Urea Nitrogen 6 L Creatinine 0.52 Est Glomerular > 60 Filtrat Rate mL/min Glucose Level 132 Calcium Level 8.7 Phosphorus Level 2.2 L Magnesium Level 1.7 Test 08/19/18 11:58 Bedside Glucose 179 Exam/Review of Systems Exam Vitals Vital Signs Date Temp Pulse Resp B/P (MAP) Pulse Ox O2 O2 Flow FiO2 Time Delivery Rate 08/19/18 98.5 90 16 131/82 93 08:15 (98) 08/17/18 Nasal 14:23 Cannula 08/15/18 3.0 16:38 Intake and Output 08/18/18 08/18/18 08/19/18 1515:00 23:00 07:00 IntakeIntake Total 1909.0909 ml 480 ml BalanceBalance 1909.0909 ml 480 ml Results Results 24hrs Laboratory Tests Test 08/18/18 17:43 08/18/18 21:06 08/19/18 05:46 08/19/18 08:10 Bedside Glucose 114 122 117 White Blood Count 15.2 H Red Blood Count 3.65 L Hemoglobin 10.8 L Hematocrit 31.9 L Mean Corpuscular 87.4 Volume Mean Corpuscular 29.6 Hemoglobin Mean Corpuscular 33.9 Hemoglobin Concent Red Cell 13.0 Distribution Width Platelet Count 412 # Mean Platelet Volume 9.8 Immature 2.200 H Granulocytes % Neutrophils % Segmented 61 Neutrophils % (Manual) Band Neutrophils % 1 (Manual) Lymphocytes % Lymphocytes % 17 (Manual) Reactive Lymphocytes 10 H % (Manual) Monocytes % Monocytes % (Manual) 8 Eosinophils % Eosinophils % 2 (Manual) Basophils % Basophils % (Manual) 1 Metamyelocytes % 1 H (manual) Promyelocytes % 1 H (Manual) Nucleated Red Blood 2 H Cells % Immature 0.340 H Granulocytes # Neutrophils # Neutrophils # 9.3 H (Manual) Band Neutrophils # 0.1 Lymphocytes (Manual) 2.5 Lymphocytes # Reactive Lymphocytes 1.5 H # Monocytes # Monocytes # (Manual) 1.2 H Eosinophils # Basophils # Basophils # (Manual) 0.1 H Metamyelocytes # 0.1 H Promyelocytes # 0.1 H Nucleated Red Blood Cells # Platelet Estimate NORMAL Giant Platelets 1 H Polychromasia 1+ Poikilocytosis 1+ Target Cells 1+ Sodium Level 142 Potassium Level 3.6 Chloride Level 105 Carbon Dioxide Level 25 Anion Gap 12 Blood Urea Nitrogen 6 L Creatinine 0.52 Est Glomerular > 60 Filtrat Rate mL/min Glucose Level 132 Calcium Level 8.7 Phosphorus Level 2.2 L Magnesium Level 1.7 Test 08/19/18 11:58 Bedside Glucose 179 Medications Medication Current Medications IV Flush (NS 3 ml) 3 ml PER PROTOCOL IV ; Start 08/14/18 at 16:30 Acetaminophen/ Hydrocodone Bitart (Fisher (5/325)) 1 tab Q6H PRN PO .MOD PAIN 4- 6 Last administered on 08/19/18at 08:25; Admin Dose 1 TAB; Start 08/14/18 at 16:30 Morphine Sulfate (morphine) 2 mg Q4H PRN IV .SEVERE PAIN 7-10 Last administered on 08/19/18at 05:15; Admin Dose 2 MG; Start 08/14/18 at 16:30 Docusate Sodium (Colace) 100 mg Q12H PRN PO .CONSTIPATION; Start 08/14/18 at 16:30 Magnesium Hydroxide (Milk Of Mag) 30 ml DAILY PRN PO .CONSTIPATION Last administered on 08/18/18 21:09; Admin Dose 30 ML; Start 08/14/18 at 16:30 Pantoprazole (Protonix Iv) 40 mg DAILY@06 IV Last administered on 08/19/18 05:15; Admin Dose 40 MG; Start 08/15/18 at 06:00 Heparin Sodium (Porcine) (Heparin (5000 Units/1ml)) 5,000 unit Q12 SC Last administered on 08/19/18 08:33; Admin Dose 5,000 UNIT; Start 08/14/18 at 21:00 Lorazepam (Ativan) 0.5 mg Q6H PRN IV ANXIETY; Start 08/14/18 at 16:30 Albuterol/ Ipratropium (Duoneb) 3 ml Q4H RESP THERAPY PRN HHN SHORTNESS OF BREATH; Start 08/14/18 at 16:30 Hydralazine HCl (Apresoline) 10 mg Q6H PRN IV ELEVATED BLOOD PRESSURE; Start 08/14/18 at 16:30 Nitroglycerin (Nitroglycerin (Sl Tab) 0.4 Mg) 1 tab Q5M PRN SL ANGINA; Start 08/14/18 at 16:30 Clonidine (Catapres) 0.1 mg BID PO Last administered on 08/19/18 08:31; Admin Dose 0.1 MG; Start 08/14/18 at 21:00 Fish Oil (Fish Oil) 1,000 mg DAILY PO Last administered on 08/19/18 08:30; Admin Dose 1,000 MG; Start 08/15/18 at 09:00 Diagnostic Test (Pha) (Accu-Chek) 1 ea 02 XX Last administered on 08/16/18at 02:27; Admin Dose 1 EA; Start 08/15/18 at 02:00 Miscellaneous Information 1 ea NOTE XX ; Start 08/14/18 at 16:30 Glucose (Glutose) 15 gm Q15M PRN PO DECREASED GLUCOSE; Start 08/14/18 at 16:30 Glucose (Glutose) 22.5 gm Q15M PRN PO DECREASED GLUCOSE; Start 08/14/18 at 16:30 Dextrose (D50w Syringe) 25 ml Q15M PRN IV DECREASED GLUCOSE; Start 08/14/18 at 16:30 Dextrose (D50w Syringe) 50 ml Q15M PRN IV DECREASED GLUCOSE; Start 08/14/18 at 16:30 Glucagon (Glucagen) 1 mg Q15M PRN IM DECREASED GLUCOSE; Start 08/14/18 at 16:30 Glucose (Glutose) 15 gm Q15M PRN BUCCAL DECREASED GLUCOSE; Start 08/14/18 at 16:30 Fenofibrate (Tricor) 145 mg DAILY PO Last administered on 08/19/18at 08:30; Admin Dose 145 MG; Start 08/15/18 at 09:00 Hydromorphone HCl (Dilaudid) 0.5 mg Q6H PRN IV PAIN LEVEL 6-10; Start 08/15/18 at 16:00 Acetaminophen/ Hydrocodone Bitart (Fisher (5/325)) 1 tab Q6H PRN PO PAIN LEVEL 6-10 Last administered on 08/16/18at 15:30; Admin Dose 1 TAB; Start 08/15/18 at 16:00 Acetaminophen (Tylenol Tab) 650 mg Q6H PRN PO MILD PAIN(1-3)OR ELEVATED TEMP Last administered on 08/16/18at 02:42; Admin Dose 650 MG; Start 08/15/18 at 16:00 Diphenhydramine HCl (Benadryl) 25 mg Q6H PRN IV ITCHING; Start 08/15/18 at 16:00 Metoclopramide HCl (Reglan) 10 mg Q6H PRN IV NAUSEA AND/OR VOMITING; Start 08/15/18 at 16:00 Ondansetron HCl (Zofran Inj) 4 mg Q6H PRN IV NAUSEA AND/OR VOMITING Last administered on 08/16/18at 09:52; Admin Dose 4 MG; Start 08/15/18 at 16:00 Phenol (Cepastat Lozenge) 1 lozenge PRN PRN MT SORE THROAT; Start 08/15/18 at 16:00 Insulin Aspart (Novolog Insulin Pen) NOVOLOG *MILD* ALGORITHM WITH MEALS BEDTIME SC Last administered on 08/16/18at 17:43; Admin Dose 3 UNIT; Start 08/16/18 at 08:00 Insulin Aspart (Novolog Insulin Pen) 7 unit WITH MEALS SC Last administered on 08/19/18at 08:49; Admin Dose 7 UNIT; Start 08/16/18 at 17:35 Insulin Glargine (Lantus) 20 units DAILY@2000 SC Last administered on 08/18/18at 21:07; Admin Dose 20 UNITS; Start 08/16/18 at 20:00 Zolpidem Tartrate (Ambien) 2.5 mg HS PRN PO INSOMNIA Last administered on 08/18/18at 21:12; Admin Dose 2.5 MG; Start 08/16/18 at 18:00 Ertapenem 1 gm/ Sodium Chloride 100 ml @ 200 mls/hr Q24H IVPB Last administered on 08/18/18at 16:00; Admin Dose 200 MLS/HR; Start 08/17/18 at 16:00 Potassium Phosphate 40 meq/ Sodium Chloride 259.0909 ml @ 64.773 m... ONCE ONCE IVPB ; Start 08/19/18 at 12:30; Stop 08/19/18 at 16:29; Status MARCELINO DUMAS Aug 19, 2018 12:18
[2018-08-19] MEDS ORDERED: POTASSIUM PHOSPHATE 40 MEQ in SOD CHLORIDE 0.9% 250 ML IVPB ONE (14:00)
--- NOTE | 2018-08-19 14:22 | CONS ---
Assessment/Plan Assessment/Plan Hospital Course (Demo Recall) ID PROGRESS NOTE CURRENT ABX=Day # => ERTAPENEM 24H INTERVAL SUMMARY * REsting today, no fevers, VSS, NAD -- DC PLANNING IN PROCESS * RUBEN DRAIN REMOVED -- She still has ABD pain -- passing gas, no stool * VSS, no fevers * Microbiology: Blood culture growing E. coli ESBL, urine culture positive for Proteus and E. coli ESBL. PHYSICAL EXAMINATION: GENERAL:VSS, NAD HEENT: Unremarkable NECK: Supple, trachea midline. CHEST: Rise symmetrical, without dyspnea on observation HEART: Pulse RRR ABDOMEN: Soft, ND EXTREMITIES: Warm, moves all extremities ID ASSESSMENT 68 yo F admit with: 1. Sepsis on admission 2. E. coli ESBL bacteremia likely secondary to #3 3. Acute cholecystitis status post lap cholecystectomy 4. Urinary tract infection 5. Diabetes INVASIVES: ABX ALLERGY: KNDA CURRENT ABX: => ERTAPENEM ID RECOMMENDATIONS 1. Continue INVANZ x 8 more days per ID VP OF MARKETING colleague note 2. Increase mobility . Consultation Date/Type/Reason Admit Date/Time Aug 14, 2018 at 16:06 Initial Consult Date 08/14/18 Date/Time of Note DATE: 08/19/18 TIME: 14:21 Exam/Review of Systems Exam Vitals Vital Signs Date Temp Pulse Resp B/P (MAP) Pulse Ox O2 O2 Flow FiO2 Time Delivery Rate 08/19/18 98.5 90 16 131/82 93 08:15 (98) 08/17/18 Nasal 14:23 Cannula 08/15/18 3.0 16:38 Intake and Output 08/18/18 08/18/18 08/19/18 1515:00 23:00 07:00 IntakeIntake Total 1909.0909 ml 480 ml BalanceBalance 1909.0909 ml 480 ml Results Result Diagram: 08/19/18 0546 08/19/18 0546 Results 24hrs Laboratory Tests Test 08/18/18 17:43 08/18/18 21:06 08/19/18 05:46 08/19/18 08:10 Bedside Glucose 114 122 117 White Blood Count 15.2 H Red Blood Count 3.65 L Hemoglobin 10.8 L Hematocrit 31.9 L Mean Corpuscular 87.4 Volume Mean Corpuscular 29.6 Hemoglobin Mean Corpuscular 33.9 Hemoglobin Concent Red Cell 13.0 Distribution Width Platelet Count 412 # Mean Platelet Volume 9.8 Immature 2.200 H Granulocytes % Neutrophils % Segmented 61 Neutrophils % (Manual) Band Neutrophils % 1 (Manual) Lymphocytes % Lymphocytes % 17 (Manual) Reactive Lymphocytes 10 H % (Manual) Monocytes % Monocytes % (Manual) 8 Eosinophils % Eosinophils % 2 (Manual) Basophils % Basophils % (Manual) 1 Metamyelocytes % 1 H (manual) Promyelocytes % 1 H (Manual) Nucleated Red Blood 2 H Cells % Immature 0.340 H Granulocytes # Neutrophils # Neutrophils # 9.3 H (Manual) Band Neutrophils # 0.1 Lymphocytes (Manual) 2.5 Lymphocytes # Reactive Lymphocytes 1.5 H # Monocytes # Monocytes # (Manual) 1.2 H Eosinophils # Basophils # Basophils # (Manual) 0.1 H Metamyelocytes # 0.1 H Promyelocytes # 0.1 H Nucleated Red Blood Cells # Platelet Estimate NORMAL Giant Platelets 1 H Polychromasia 1+ Poikilocytosis 1+ Target Cells 1+ Sodium Level 142 Potassium Level 3.6 Chloride Level 105 Carbon Dioxide Level 25 Anion Gap 12 Blood Urea Nitrogen 6 L Creatinine 0.52 Est Glomerular > 60 Filtrat Rate mL/min Glucose Level 132 Calcium Level 8.7 Phosphorus Level 2.2 L Magnesium Level 1.7 Test 08/19/18 11:58 Bedside Glucose 179 Medications Medication Current Medications IV Flush (NS 3 ml) 3 ml PER PROTOCOL IV ; Start 08/14/18 at 16:30 Acetaminophen/ Hydrocodone Bitart ([place] (5/325)) 1 tab Q6H PRN PO .MOD PAIN 4- 6 Last administered on 08/19/18at 08:25; Admin Dose 1 TAB; Start 08/14/18 at 16:30 Morphine Sulfate (morphine) 2 mg Q4H PRN IV .SEVERE PAIN 7-10 Last administered on 08/19/18at 05:15; Admin Dose 2 MG; Start 08/14/18 at 16:30 Docusate Sodium (Colace) 100 mg Q12H PRN PO .CONSTIPATION; Start 08/14/18 at 16:30 Magnesium Hydroxide (Milk Of Mag) 30 ml DAILY PRN PO .CONSTIPATION Last administered on 08/18/18at 21:09; Admin Dose 30 ML; Start 08/14/18 at 16:30 Pantoprazole (Protonix Iv) 40 mg DAILY@06 IV Last administered on 08/19/18at 05:15; Admin Dose 40 MG; Start 08/15/18 at 06:00 Heparin Sodium (Porcine) (Heparin (5000 Units/1ml)) 5,000 unit Q12 SC Last administered on 08/19/18at 08:33; Admin Dose 5,000 UNIT; Start 08/14/18 at 21:00 Lorazepam (Ativan) 0.5 mg Q6H PRN IV ANXIETY; Start 08/14/18 at 16:30 Albuterol/ Ipratropium (Duoneb) 3 ml Q4H RESP THERAPY PRN HHN SHORTNESS OF BREATH; Start 08/14/18 at 16:30 Hydralazine HCl (Apresoline) 10 mg Q6H PRN IV ELEVATED BLOOD PRESSURE; Start 08/14/18 at 16:30 Nitroglycerin (Nitroglycerin (Sl Tab) 0.4 Mg) 1 tab Q5M PRN SL ANGINA; Start 08/14/18 at 16:30 Clonidine (Catapres) 0.1 mg BID PO Last administered on 08/19/18at 08:31; Admin Dose 0.1 MG; Start 08/14/18 at 21:00 Fish Oil (Fish Oil) 1,000 mg DAILY PO Last administered on 08/19/18at 08:30; Admin Dose 1,000 MG; Start 08/15/18 at 09:00 Diagnostic Test (Pha) (Accu-Chek) 1 ea 02 XX Last administered on 08/16/18at 02:27; Admin Dose 1 EA; Start 08/15/18 at 02:00 Miscellaneous Information 1 ea NOTE XX ; Start 08/14/18 at 16:30 Glucose (Glutose) 15 gm Q15M PRN PO DECREASED GLUCOSE; Start 08/14/18 at 16:30 Glucose (Glutose) 22.5 gm Q15M PRN PO DECREASED GLUCOSE; Start 08/14/18 at 1 6:30 Dextrose (D50w Syringe) 25 ml Q15M PRN IV DECREASED GLUCOSE; Start 08/14/18 at 16:30 Dextrose (D50w Syringe) 50 ml Q15M PRN IV DECREASED GLUCOSE; Start 08/14/18 at 16:30 Glucagon (Glucagen) 1 mg Q15M PRN IM DECREASED GLUCOSE; Start 08/14/18 at 16:30 Glucose (Glutose) 15 gm Q15M PRN BUCCAL DECREASED GLUCOSE; Start 08/14/18 at 16:30 Fenofibrate (Tricor) 145 mg DAILY PO Last administered on 08/19/18 08:30; Admin Dose 145 MG; Start 08/15/18 at 09:00 Hydromorphone HCl (Dilaudid) 0.5 mg Q6H PRN IV PAIN LEVEL 6-10; Start 08/15/18 at 16:00 Acetaminophen/ Hydrocodone Bitart ([place] (5/325)) 1 tab Q6H PRN PO PAIN LEVEL 6-10 Last administered on 08/16/18at 15:30; Admin Dose 1 TAB; Start 08/15/18 at 16:00 Acetaminophen (Tylenol Tab) 650 mg Q6H PRN PO MILD PAIN(1-3)OR ELEVATED TEMP Last administered on 08/16/18at 02:42; Admin Dose 650 MG; Start 08/15/18 at 16:00 Diphenhydramine HCl (Benadryl) 25 mg Q6H PRN IV ITCHING; Start 08/15/18 at 16:00 Metoclopramide HCl (Reglan) 10 mg Q6H PRN IV NAUSEA AND/OR VOMITING; Start 08/15/18 at 16:00 Ondansetron HCl (Zofran Inj) 4 mg Q6H PRN IV NAUSEA AND/OR VOMITING Last administered on 08/16/18at 09:52; Admin Dose 4 MG; Start 08/15/18 at 16:00 Phenol (Cepastat Lozenge) 1 lozenge PRN PRN MT SORE THROAT; Start 08/15/18 at 16:00 Insulin Aspart (Novolog Insulin Pen) NOVOLOG *MILD* ALGORITHM WITH MEALS BEDTIME SC Last administered on 08/19/18 12:21; Admin Dose 1 UNIT; Start 08/16/18 at 08:00 Insulin Aspart (Novolog Insulin Pen) 7 unit WITH MEALS SC Last administered on 08/19/18 12:20; Admin Dose 7 UNIT; Start 08/16/18 at 17:35 Insulin Glargine (Lantus) 20 units DAILY@2000 SC Last administered on 08/18/18 21:07; Admin Dose 20 UNITS; Start 08/16/18 at 20:00 Zolpidem Tartrate (Ambien) 2.5 mg HS PRN PO INSOMNIA Last administered on at 21:12; Admin Dose 2.5 MG; Start 08/16/18 at 18:00 Ertapenem 1 gm/ Sodium Chloride 100 ml @ 200 mls/hr Q24H IVPB Last administered on 08/18/18at 16:00; Admin Dose 200 MLS/HR; Start 08/17/18 at 16:00 Potassium Phosphate 40 meq/ Sodium Chloride 259.0909 ml @ 64.773 m... ONCE ONCE IVPB Last administered on 08/19/18at 13:58; Admin Dose 64.773 MLS/HR; Start 08/19/18 at 14:00; Stop 08/19/18 at 17:59 RHONDA MONTES NP Aug 19, 2018 14:22
[2018-08-19 14:30] VITALS: BP 153/86; PULSE 91; RESP 18
[2018-08-19] MEDS: ERTAPENEM SODIUM 1 GM in SOD CHLORIDE 0.9% 100 ML IVPB SCH (18:46)
[2018-08-19 20:00] VITALS: BP 158/88; PULSE 91; RESP 18
[2018-08-19] MEDS: INSULIN GLARGINE [LANTus] (100 UNITS/ML) SYG SC SCH (20:18)
[2018-08-19] MEDS: ZOLPIDEM 5 MG TAB PO PRN (22:26)
[2018-08-20] MEDS: HYDROCODONE/APAP (5/325) TAB PO PRN (01:55)
[2018-08-20 02:00] VITALS: BP 150/82; PULSE 89; RESP 18
[2018-08-20] MEDS: PANTOPRAZOLE 40 MG INJ IV SCH (06:13)
[2018-08-20] MEDS: INSULIN ASPART [NOVOLOG] 3 ML PEN SC SCH ×4 (08:00→12:32)
[2018-08-20 08:21] VITALS: BP 151/80; PULSE 81; RESP 18
[2018-08-20] MEDS: HEPARIN 5,000 UNIT/1 ML VIAL SC SCH (08:54)
[2018-08-20] MEDS: FISH OIL 1,000 MG CAP PO SCH (09:04)
[2018-08-20] MEDS: FENOFIBRATE 145 MG TAB PO SCH (09:04)
--- NOTE | 2018-08-20 14:00 | CONS ---
Assessment/Plan Assessment/Plan Hospital Course (Demo Recall) No acute changes overnight. Patient is alert and feels better, no fevers overnight Microbiology: Blood culture growing E. coli ESBL, urine culture positive for Proteus and E. coli ESBL==> sensitive to quinolones Antimicrobials: Invanz Physical examination well-developed elderly woman in no distress. Head atraumatic normocephalic sclera nonicteric. Neck is supple chest rise symmetrical, breath sounds clear, abdomen soft bowel sounds hypoactive mild tenderness on palpation, patient has RUBEN. Extremities without cyanosis. Assessment: 1. Sepsis on admission 2. E. coli ESBL bacteremia likely secondary to #3 3. Acute cholecystitis status post lap cholecystectomy 4. Urinary tract infection 5. Diabetes Plan: Doing better, repeat blood cultures negative, continue on current anti biotics, anticipate discharge on oral ciprofloxacin for 7 more days Consultation Date/Type/Reason Admit Date/Time Aug 14, 2018 at 16:06 Initial Consult Date 08/14/18 Type of Consult ID Date/Time of Note DATE: 08/20/18 TIME: 13:58 Exam/Review of Systems Exam Vitals Vital Signs Date Temp Pulse Resp B/P (MAP) Pulse Ox O2 O2 Flow FiO2 Time Delivery Rate 08/20/18 98.6 81 18 151/80 95 08:21 (103) 08/17/18 Nasal 14:23 Cannula Intake and Output 08/19/18 08/19/18 08/20/18 1515:00 23:00 07:00 IntakeIntake Total 1040 ml 1139.09 ml 250 ml BalanceBalance 1040 ml 1139.09 ml 250 ml Results Result Diagram: 08/20/18 0547 08/20/18 0547 Results 24hrs Laboratory Tests Test 08/19/18 17:07 08/19/18 20:16 08/20/18 05:47 08/20/18 08:01 Bedside Glucose 192 152 133 White Blood Count 11.4 #H Red Blood Count 3.69 L Hemoglobin 10.8 L Hematocrit 31.7 L Mean Corpuscular 85.9 Volume Mean Corpuscular 29.3 Hemoglobin Mean Corpuscular 34.1 Hemoglobin Concent Red Cell 13.2 Distribution Width Platelet Count 466 H Mean Platelet Volume 9.6 Immature 4.100 H Granulocytes % Neutrophils % Segmented 47 Neutrophils % (Manual) Band Neutrophils % 10 H (Manual) Lymphocytes % Lymphocytes % 22 (Manual) Monocytes % Monocytes % (Manual) 10 Eosinophils % Eosinophils % 5 (Manual) Basophils % Basophils % (Manual) 2 Metamyelocytes % 2 H (manual) Plasma Cells % 2 (manual) Nucleated Red Blood 1 H Cells % Immature 0.470 H Granulocytes # Neutrophils # Neutrophils # 5.5 (Manual) Band Neutrophils # 1.1 H Lymphocytes (Manual) 2.5 Lymphocytes # Monocytes # Monocytes # (Manual) 1.1 H Eosinophils # Basophils # Basophils # (Manual) 0.2 H Metamyelocytes # 0.2 H Plasma Cells # 0.2 H (manual) Nucleated Red Blood Cells # Platelet Estimate INCREASED Polychromasia 2+ Sodium Level 142 Potassium Level 3.4 L Chloride Level 106 Carbon Dioxide Level 27 Anion Gap 9 Blood Urea Nitrogen 5 L Creatinine 0.47 Est Glomerular > 60 Filtrat Rate mL/min Glucose Level 148 Calcium Level 8.9 Phosphorus Level 3.3 Magnesium Level 1.8 Test 08/20/18 12:28 Bedside Glucose 130 Medications Medication Current Medications IV Flush (NS 3 ml) 3 ml PER PROTOCOL IV ; Start 08/14/18 at 16:30 Acetaminophen/ Hydrocodone Bitart ([place] (5/325)) 1 tab Q6H PRN PO .MOD PAIN 4- 6 Last administered on 08/20/18 01:55; Admin Dose 1 TAB; Start 08/14/18 at 16:30 Morphine Sulfate (morphine) 2 mg Q4H PRN IV .SEVERE PAIN 7-10 Last administered on 08/19/18 20:20; Admin Dose 2 MG; Start 08/14/18 at 16:30 Docusate Sodium (Colace) 100 mg Q12H PRN PO .CONSTIPATION; Start 08/14/18 at 16:30 Magnesium Hydroxide (Milk Of Mag) 30 ml DAILY PRN PO .CONSTIPATION Last administered on 08/18/18 21:09; Admin Dose 30 ML; Start 08/14/18 at 16:30 Pantoprazole (Protonix Iv) 40 mg DAILY@06 IV Last administered on 08/20/18 06:13; Admin Dose 40 MG; Start 08/15/18 at 06:00 Heparin Sodium (Porcine) (Heparin (5000 Units/1ml)) 5,000 unit Q12 SC Last ad ministered on 08/20/18 08:54; Admin Dose 5,000 UNIT; Start 08/14/18 at 21:00 Lorazepam (Ativan) 0.5 mg Q6H PRN IV ANXIETY; Start 08/14/18 at 16:30 Albuterol/ Ipratropium (Duoneb) 3 ml Q4H RESP THERAPY PRN HHN SHORTNESS OF BREATH; Start 08/14/18 at 16:30 Hydralazine HCl (Apresoline) 10 mg Q6H PRN IV ELEVATED BLOOD PRESSURE; Start 08/14/18 at 16:30 Nitroglycerin (Nitroglycerin (Sl Tab) 0.4 Mg) 1 tab Q5M PRN SL ANGINA; Start 08/14/18 at 16:30 Clonidine (Catapres) 0.1 mg BID PO Last administered on 08/20/18at 09:04; Admin Dose 0.1 MG; Start 08/14/18 at 21:00 Fish Oil (Fish Oil) 1,000 mg DAILY PO Last administered on 08/20/18at 09:04; Admin Dose 1,000 MG; Start 08/15/18 at 09:00 Diagnostic Test (Pha) (Accu-Chek) 1 ea 02 XX Last administered on 08/16/18at 02:27; Admin Dose 1 EA; Start 08/15/18 at 02:00 Miscellaneous Information 1 ea NOTE XX ; Start 08/14/18 at 16:30 Glucose (Glutose) 15 gm Q15M PRN PO DECREASED GLUCOSE; Start 08/14/18 at 16:30 Glucose (Glutose) 22.5 gm Q15M PRN PO DECREASED GLUCOSE; Start 08/14/18 at 16:30 Dextrose (D50w Syringe) 25 ml Q15M PRN IV DECREASED GLUCOSE; Start 08/14/18 at 16:30 Dextrose (D50w Syringe) 50 ml Q15M PRN IV DECREASED GLUCOSE; Start 08/14/18 at 16:30 Glucagon (Glucagen) 1 mg Q15M PRN IM DECREASED GLUCOSE; Start 08/14/18 at 16:30 Glucose (Glutose) 15 gm Q15M PRN BUCCAL DECREASED GLUCOSE; Start 08/14/18 at 16:30 Fenofibrate (Tricor) 145 mg DAILY PO Last administered on 08/20/18at 09:04; Admin Dose 145 MG; Start 08/15/18 at 09:00 Hydromorphone HCl (Dilaudid) 0.5 mg Q6H PRN IV PAIN LEVEL 6-10; Start 08/15/18 at 16:00 Acetaminophen/ Hydrocodone Bitart ([place] (5/325)) 1 tab Q6H PRN PO PAIN LEVEL 6-10 Last administered on 08/16/18 15:30; Admin Dose 1 TAB; Start 08/15/18 at 16:00 Acetaminophen (Tylenol Tab) 650 mg Q6H PRN PO MILD PAIN(1-3)OR ELEVATED TEMP Last administered on 08/16/18 02:42; Admin Dose 650 MG; Start 08/15/18 at 16:00 Diphenhydramine HCl (Benadryl) 25 mg Q6H PRN IV ITCHING; Start 08/15/18 at 16:00 Metoclopramide HCl (Reglan) 10 mg Q6H PRN IV NAUSEA AND/OR VOMITING; Start 08/15/18 at 16:00 Ondansetron HCl (Zofran Inj) 4 mg Q6H PRN IV NAUSEA AND/OR VOMITING Last administered on 08/16/18 09:52; Admin Dose 4 MG; Start 08/15/18 at 16:00 Phenol (Cepastat Lozenge) 1 lozenge PRN PRN MT SORE THROAT; Start 08/15/18 at 16:00 Insulin Aspart (Novolog Insulin Pen) NOVOLOG *MILD* ALGORITHM WITH MEALS BEDTIME SC Last administered on 08/19/18 17:12; Admin Dose 2 UNIT; Start 08/16/18 at 08:00 Insulin Aspart (Novolog Insulin Pen) 7 unit WITH MEALS SC Last administered on 08/20/18 12:32; Admin Dose 7 UNIT; Start 08/16/18 at 17:35 Insulin Glargine (Lantus) 20 units DAILY@2000 SC Last administered on 08/19/18 20:18; Admin Dose 20 UNITS; Start 08/16/18 at 20:00 Zolpidem Tartrate (Ambien) 2.5 mg HS PRN PO INSOMNIA Last administered on 08/19/18 22:26; Admin Dose 2.5 MG; Start 08/16/18 at 18:00 Ertapenem 1 gm/ Sodium Chloride 100 ml @ 200 mls/hr Q24H IVPB Last administered on 4/28/19at 18:46; Admin Dose 200 MLS/HR; Start 08/17/18 at 16:00 JACI MILNER NP Aug 20, 2018 14:00
[2018-08-20 15:00] VITALS: BP 135/71; PULSE 86; RESP 18
--- NOTE | 2018-08-20 15:25 | PDOCDIS ---
Discharge Instructions DIAGNOSIS Discharge Diagnosis Acute cholecystitis s/p cholecystectomy ESBL E Coli UTI CONDITION [id number] Patient Condition: [id number] Good HOME CARE INSTRUCTIONS: [id number] Diet Instructions: [id number] Regular ACTIVITY: [id number] Activity Restrictions: [id number] No Restrictions FOLLOW UP/APPOINTMENTS Follow-up Plan 1. Continue to receive daily IV antibiotics as ordered, 8 more days total. 2. Avoid heavy lifting more than 10 lbs for 4 weeks. 3. Keep your surgical incisions clean and dry. Avoid baths or pools. Okay to shower, pat dry incisions afterwards. 4. See your primary care doctor in 1-2 weeks. KATIE LAND MD Aug 20, 2018 15:25
[2018-08-20] MEDS: ERTAPENEM SODIUM 1 GM in SOD CHLORIDE 0.9% 100 ML IVPB SCH (16:17)
--- NOTE | 2018-08-20 19:36 | DS ---
Date/Time of Note Date/Time of Note DATE: 08/20/18 TIME: 19:31 Discharge Summary Admission/Discharge Info Admit Date/Time Aug 14, 2018 at 16:06 Discharge Date/Time Aug 20, 2018 at 17:46 Discharge Diagnosis Acute cholecystitis s/p cholecystectomy ESBL E Coli UTI Patient Condition: Good Consults Dr. Melvin, infectious disease Dr. Whittaker, general surgery Procedures Lap fernando 08/16. Hx of Present Illness 68-year-old female past medical history of: Diabetes, hypertension, high cholesterol, GERD, possible gallstones who complains of abdominal pain. Symptom s have been going on for the last 3 days. She is also had some nausea and nonbilious nonbloody vomiting symptoms. Complains of chills at home. Is told in the past she has gallstones was never had any surgeries before including any gallbladder surgeries. She also complains of some mild low back pain. When she arrived she was found with temperature 104.5. Her UA is also positive for signs of UTI, but her white count is normal 8.3. Her gallbladder ultrasound also showed signs of gallbladder wall thickening and sludge, possible cholecystitis. Hospital Course Gallbladder US showed thickened wall, pericholecystic fluid. She was taken to OR by Dr. Whittaker for laparoscopic cholecystectomy on 08/16. Surgical cultures grew ESBL E Coli; which also grew in blood culture and urine cultures. Postoperative course was unremarkable; she tolerated diet and was ambulatory. Per ID consult recommendations a PICC line was placed and the patient was arranged for discharge on IV ertapenem. Of note; just after discharge was ordered Dr. Melvin called saying PO ciprofloxacin would be suitable as well. Because the ertapenem had already been arranged; and because ESBL E Coli has a low threshold to develop resistance to fluoroquinolones, I chose to stick to the original plan. Home Meds Reported Medications Clonidine Hcl* (Clonidine Hcl*) 0.1 Mg Tab, 0.1 MG PO BID, TAB 08/14/18 [place]-3/Dha/Epa/Fish Oil ([place] 3 500 Softgel) 1 Each Capsule, 1 EACH PO TID, CAP 08/14/18 Fenofibrate, Micronized* (Fenofibrate*) 160 Mg Tablet, 160 MG PO DAILY, TAB 08/14/18 Metoprolol Tartrate* (Lopressor*) 50 Mg Tab, 50 MG PO BID, #60 TAB 08/14/18 Linagliptin (TRADJENTA) 5 Mg Tablet, 5 MG PO DAILY, TAB 08/14/18 Losartan Potassium* (Losartan Potassium*) 50 Mg Tablet, 50 MG PO BID, TAB 08/14/18 Omeprazole* (Omeprazole*) 40 Mg Capsule.dr, 40 MG PO DAILY, #30 CAP 08/14/18 Metformin Hcl* (Metformin Hcl*) 1,000 Mg Tablet, 1000 MG PO WITH BREAKFAST DINNE, #60 TAB 08/14/18 Follow-up Plan 1. Continue to receive daily IV antibiotics as ordered, 8 more days total. 2. Avoid heavy lifting more than 10 lbs for 4 weeks. 3. Keep your surgical incisions clean and dry. Avoid baths or pools. Okay to shower, pat dry incisions afterwards. 4. See your primary care doctor in 1-2 weeks. Primary Care Provider Not On Staff Doctor Time spent on discharge: > 30 minutes Pending Labs Laboratory Tests Test 08/19/18 20:16 08/20/18 05:47 08/20/18 08:01 08/20/18 12:28 Bedside 152 133 130 Glucose mg/dL (70-220) mg/dL (70-220) mg/dL (70-220) White Blood 11.4 Count 10^3/ul (4.8-1 0.8) Red Blood 3.69 Count 10^6/ul (4.20- 5.40) Hemoglobin 10.8 g/dl (12.0-16. 0) Hematocrit 31.7 % (37.0-47.0) Mean 85.9 Corpuscular fl (82.0-101.0 Volume ) Mean 29.3 Corpuscular pg (29.0-33.0) Hemoglobin Mean 34.1 Corpuscular g/dl (32.0-37. Hemoglobin Conc 0) ent Red Cell 13.2 Distribution % (11.5-14.5) Width Platelet Count 466 10^3/UL (140-4 15) Mean Platelet 9.6 Volume fl (7.4-10.4) Immature 4.100 Granulocytes % % (0.001-0.429 ) Neutrophils % % (39.0-77.0) Segmented 47 % (39-77) Neutrophils % (Manual) Band 10 % (0-4) Neutrophils % (Manual) Lymphocytes % % (15.0-51.0) Lymphocytes % 22 % (15-51) (Manual) Monocytes % % (0.0-11.0) Monocytes % 10 % (0-11) (Manual) Eosinophils % % (0.0-7.0) Eosinophils % 5 % (0-7) (Manual) Basophils % % (0.0-2.0) Basophils % 2 % (0-2) (Manual) Metamyelocytes 2 % (0-0) % (manual) Plasma Cells % 2 % (0) (manual) Nucleated Red 1 % (0-0) Blood Cells % Immature 0.470 Granulocytes # 10^3/ul (0.0-0 .031) Neutrophils # 10^3/ul (1.6-7 .5) Neutrophils # 5.5 (Manual) 10^3/ul (1.6-7 .5) Band 1.1 Neutrophils # 10^3/ul (0.0-0 .6) Lymphocytes 2.5 (Manual) 10^3/ul (0.8-2 .9) Lymphocytes # 10^3/ul (0.8-2 .9) Monocytes # 10^3/ul (0.3-0 .9) Monocytes # 1.1 (Manual) 10^3/ul (0.3-0 .9) Eosinophils # 10^3/ul (0.0-0 .5) Basophils # 10^3/ul (0.0-0 .1) Basophils # 0.2 (Manual) 10^3/ul (0.0-0 .0) Metamyelocytes 0.2 # 10^3/ul (0.0-0 .0) Plasma Cells # 0.2 (manual) 10^3/ul (0.0-0 .0) Nucleated Red 10^3/ul (0.0-0 Blood Cells # .0) Platelet INCREASED Estimate Polychromasia 2+ (0-0) Sodium Level 142 mmol/L (135-14 4) Potassium 3.4 Level mmol/L (3.5-5. 1) Chloride Level 106 mmol/L (97-110 ) Carbon Dioxide 27 Level mmol/L (21-31) Anion Gap 9 (5-13) Blood Urea 5 mg/dl (7-20) Nitrogen Creatinine 0.47 mg/dl (0.44-1. 00) Est Glomerular > 60 Filtrat mL/min (>60) Rate mL/min Glucose Level 148 mg/dl (70-220) Calcium Level 8.9 mg/dl (8.4-10. 2) Phosphorus 3.3 Level mg/dl (2.5-4.9 ) Magnesium 1.8 Level mg/dl (1.7-2.5 ) KATIE LAND MD Aug 20, 2018 19:36
== END 2018-08-20 17:46 | disposition home or self-care (01) | DRG 854 ==
LOC: E/R 14:16 → PP2 16:06 → SUATTDRO 16:07
PROVIDERS: ADMIT Hospitalist; ATTEND Internal Medicine
PROC: 0FT44ZZ Resection of Gallbladder, Percutaneous Endoscopic Approach (ICD-10-PCS; principal; 2018-08-14)
DX: A41.51 Sepsis due to Escherichia coli [E. coli] (principal); N39.0 Urinary tract infection, site not specified; K82.1 Hydrops of gallbladder; K80.00 Calculus of gallbladder with acute cholecystitis without obstruction; Q44.7 Other congenital malformations of liver; E11.9 Type 2 diabetes mellitus without complications; I10 Essential (primary) hypertension; E78.00 Pure hypercholesterolemia, unspecified; K21.9 Gastro-esophageal reflux disease without esophagitis
CPT/HCPCS: 36415; 71045; 76705; 78226; 80048; 80053; 80061; 81001; 82962; 83036; 83605; 83690; 83735; 84100; 84439; 84443; 84484; 85025; 85610; 85730; 87070; 87075; 87086; 87400; 88304; 92610; 93005; 96361; 96365; 96367; 97110; 97116; 97162; 97530; A9537; C9113; J0360; J0692; J1100; J1170; J1335; J1644; J1815; J2175; J2270; J2405; J2543; J2710; J3010; J3370; J3475; J7030; J7050; J7120

== ENCOUNTER 2018-09-06 16:36 | Emergency (ER) | payer OTHER ==
[~2018-09-06] VITALS: Ht 165.1 cm; Wt 62.3 kg
[~2018-09-06 16:36] MED LIST changes: +CLON-379 PO; +FENO160T13 PO; -FENOFIBRATE 145 MG TAB PO SCH; +LINA5TAB PO; +LOSA50TA14 PO; +METF100010 PO; +METO-429 PO; +OMEG-140 PO; +OMEP40CA6 PO
[2018-09-06 16:46] VITALS: Ht 165.1 cm; Wt 62.3 kg
[2018-09-06] MEDS ORDERED: LIDOCAINE/MYLANTA 40 ML BTL PO STA (17:12)
[2018-09-06] MEDS ORDERED: FAMOTIDINE 20 MG TAB PO STA (17:12)
[2018-09-06] MEDS ORDERED: DICYCLOMINE 10 MG CAP PO ONE (17:30)
[2018-09-06] MEDS ORDERED: ONDA4TAB14 PO (18:18)
[2018-09-06] MEDS ORDERED: SUCR1TAB56 PO (18:18)
--- NOTE | 2018-09-06 18:28 | ERD ---
ER Documentation Chief Complaint Chief Complaint c/o SOB, headache, epigastric pain since DC'd in late july from hospital HPI 68-year-old female with admission in July for acute cholecystitis, sepsis status post lap scopic removal. Since the patient has been discharged she is describing normal daily nausea with epigastric abdominal burning that is usually postprandial. She states that approximately 2 hours after eating any food she has a bowel movement. She has seen her general surgeon fairly recently with negative evaluation and was told that this is to be expected. The patient is concerned because she has persistent symptoms. She does describe a history of reflux and states this feels similar. She denies any chest pain or pressure, no exertional symptoms, no diaphoresis or pleuritic pain. ROS All systems reviewed and are negative except as per history of present illness. Medications Home Meds Active Scripts Ondansetron (Ondansetron Odt) 4 Mg Tab.rapdis, 4 MG PO Q6H PRN for NAUSEA AND/OR VOMITING, #10 TAB Prov:USHA CARTER MD 09/06/18 Sucralfate* (Carafate*) 1 Gm Tab, 1 GM PO WITH MEALS, #20 TAB Prov:USHA CARTER MD 09/06/18 Reported Medications Clonidine Hcl* (Clonidine Hcl*) 0.1 Mg Tab, 0.1 MG PO BID, TAB 08/14/18 Attalla-3/Dha/Epa/Fish Oil (Attalla 3 500 Softgel) 1 Each Capsule, 1 EACH PO TID, CAP 08/14/18 Fenofibrate, Micronized* (Fenofibrate*) 160 Mg Tablet, 160 MG PO DAILY, TAB 08/14/18 Metoprolol Tartrate* (Lopressor*) 50 Mg Tab, 50 MG PO BID, #60 TAB 08/14/18 Linagliptin (TRADJENTA) 5 Mg Tablet, 5 MG PO DAILY, TAB 08/14/18 Losartan Potassium* (Losartan Potassium*) 50 Mg Tablet, 50 MG PO BID, TAB 08/14/18 Omeprazole* (Omeprazole*) 40 Mg Capsule.dr, 40 MG PO DAILY, #30 CAP 08/14/18 Metformin Hcl* (Metformin Hcl*) 1,000 Mg Tablet, 1000 MG PO WITH BREAKFAST DINNE, #60 TAB 08/14/18 Allergies Allergies: Coded Allergies: No Known Allergy (Unverified , 09/06/18) PMhx/Soc History of Surgery: Yes (Laproscopic Gall Bladder) Anesthesia Reaction: No Hx Neurological Disorder: No Hx Respiratory Disorders: No Hx Cardiac Disorders: Yes (HRTN; HIGH CHOLESTEROL) Hx Psychiatric Problems: No Hx Miscellaneous Medical Probl: Yes (See technical record) Hx Alcohol Use: No Hx Substance Use: No Hx Tobacco Use: No Smoking Status: Never smoker FmHx Family History: No diabetes Physical Exam Vitals Vital Signs Date Temp Pulse Resp B/P (MAP) Pulse Ox O2 O2 Flow FiO2 Time Delivery Rate 09/06/18 98.1 70 20 150/93 97 Room Air 17:27 (112) 09/06/18 98.1 75 20 195/93 96 16:46 (127) Physical Exam General: Well developed, well nourished, no acute distress Head: Normocephalic, atraumatic. Eyes: Pupils equally reactive, EOM intact ENT: Moist mucous membranes Neck: Supple, no lymphadenopathy Respiratory: Lungs clear bilaterally, no distress Cardiovascular: RRR, no murmurs, rubs, or gallops Abdominal: Soft, non-tender, non-distended, no peritoneal signs : Deferred MSK: No edema, no unilateral swelling, 5/5 strength Neurologic: Alert and oriented, moving all extremities, normal speech, no focal weakness, no cerebellar signs Skin: No rash Psych: Normal mood Result Diagram: 09/06/18 1713 09/06/18 1713 Results 24 hrs Laboratory Tests Test 09/06/18 17:13 White Blood Count 8.9 10^3/ul Red Blood Count 4.41 10^6/ul Hemoglobin 13.1 g/dl Hematocrit 40.3 % Mean Corpuscular Volume 91.4 fl Mean Corpuscular Hemoglobin 29.7 pg Mean Corpuscular Hemoglobin Concent 32.5 g/dl Red Cell Distribution Width 14.4 % Platelet Count 526 10^3/UL Mean Platelet Volume 9.4 fl Immature Granulocytes % 0.300 % Neutrophils % % Segmented Neutrophils % (Manual) 48 % Lymphocytes % % Lymphocytes % (Manual) 44 % Monocytes % % Monocytes % (Manual) 6 % Eosinophils % % Eosinophils % (Manual) 2 % Basophils % % Nucleated Red Blood Cells % 0.0 /100WBC Immature Granulocytes # 0.030 10^3/ul Neutrophils # 10^3/ul Lymphocytes (Manual) 3.9 10^3/ul Lymphocytes # 10^3/ul Monocytes # 10^3/ul Monocytes # (Manual) 0.5 10^3/ul Eosinophils # 10^3/ul Basophils # 10^3/ul Nucleated Red Blood Cells # 10^3/ul Platelet Estimate NORMAL Sodium Level 142 mmol/L Potassium Level 3.7 mmol/L Chloride Level 102 mmol/L Carbon Dioxide Level 27 mmol/L Anion Gap 13 Blood Urea Nitrogen 8 mg/dl Creatinine 0.57 mg/dl Est Glomerular Filtrat Rate mL/min > 60 mL/min Glucose Level 181 mg/dl Calcium Level 10.7 mg/dl Total Bilirubin 0.4 mg/dl Direct Bilirubin 0.00 mg/dl Indirect Bilirubin 0.4 mg/dl Aspartate Amino Transf (AST/SGOT) 28 IU/L Alanine Aminotransferase (ALT/SGPT) 19 IU/L Alkaline Phosphatase 86 IU/L Total Protein 8.2 g/dl Albumin 4.5 g/dl Globulin 3.70 g/dl Albumin/Globulin Ratio 1.21 Lipase 417 U/L Current Medications Medications Dose Sig/Mag Start Time Status Last (Trade) Ordered Route PRN Stop Time Admin Dose Reason Admin Famotidine 20 mg ONCE STAT 09/06/18 DC 09/06/18 (Pepcid) PO 17:12 17:23 09/06/18 17:13 40 ml ONCE STAT 09/06/18 DC 09/06/18 Miscellaneous PO 17:12 17:23 Medication 09/06/18 17:13 (Gi Cocktail (2)) Dicyclomine 10 mg ONCE ONCE 09/06/18 DC 09/06/18 HCl PO 17:30 17:23 (Bentyl) 09/06/18 17:31 Procedures/MDM LAB INTERPRETATION: I reviewed the laboratory testing and it shows non specific lipase elevation MEDICAL DECISION MAKING: The patient's presentation seems very consistent with dyspepsia, peptic ulcer disease versus reflux. The patient states that she has a bowel movement several hours after eating but this seems nonspecific. She has a very benign abdominal examination with a subacute presentation not consistent with complication related to surgery. Additionally the patient had recent follow-up with her general surgeon that was normal. She has no chest pain or exertional symptoms or anginal equivalent symptoms that would be concerning for ACS. The patient has been given reassurance. She was strongly advised to follow-up with a registered massage therapist for possible endoscopy. The patient does take a PPI. Barrier therapy may be appropriate. She states this feels very similar to her reflux in the past. ER COURSE: * Patient's laboratory testing is reassuring and nonspecific. The patient can be safely discharged with primary care follow-up. CONSULTATION: None DISPOSITION PLAN: The patient does not have an identifiable emergent medical condition that warrants inpatient hospitalization at this time. The patient is deemed safe for discharge with outpatient follow-up. We discussed follow up with the patient's primary care doctor within 24 to 48 hours as needed. We also discussed return to the emergency room for worsening symptoms or worsening condition. Outpatient referral: None required Discharge Medications: Sucralfate, Zofran Departure Diagnosis: Primary Impression: Dyspepsia Condition: Stable Patient Instructions: Epigastric Pain (Uncertain Cause) Referrals: COMMUNITY CLINICS YOU HAVE RECEIVED A MEDICAL SCREENING EXAM AND THE RESULTS INDICATE THAT YOU DO NOT HAVE A CONDITION THAT REQUIRES URGENT TREATMENT IN THE EMERGENCY DEPARTMENT. FURTHER EVALUATION AND TREATMENT OF YOUR CONDITION CAN WAIT UNTIL YOU ARE SEEN IN YOUR DOCTORS OFFICE WITHIN THE NEXT 1-2 DAYS. IT IS YOUR RESPONSIBILITY TO MAKE AN APPOINTMENT FOR [facility]. IF YOU HAVE A PRIMARY DOCTOR --you should call your primary doctor and schedule an appointment IF YOU DO NOT HAVE A PRIMARY DOCTOR YOU CAN CALL OUR PHYSICIAN REFERRAL HOTLINE AT IF YOU CAN NOT AFFORD TO SEE A PHYSICIAN YOU CAN CHOSE FROM THE FOLLOWING [facility] CLINICS [facility] [address] [facility]. [facility] [address] [facility] [facility] [address] [facility]. [facility] [address] [facility]. [facility] [address] [facility]. [facility]. [address] [facility] YOU HAVE RECEIVED A MEDICAL SCREENING EXAM AND THE RESULTS INDICATE THAT YOU DO NOT HAVE A CONDITION THAT REQUIRES URGENT TREATMENT IN THE EMERGENCY DEPARTMENT. FURTHER EVALUATION AND TREATMENT OF YOUR CONDITION CAN WAIT UNTIL YOU ARE SEEN IN YOUR DOCTORS OFFICE WITHIN THE NEXT 1-2 DAYS. IT IS YOUR RESPONSIBILITY TO MAKE AN APPOINTMENT FOR [facility]-UP CARE. IF YOU HAVE A PRIMARY DOCTOR --you should call your primary doctor and schedule and appointment IF YOU DO NOT HAVE A PRIMARY DOCTOR YOU CAN CALL OUR PHYSICIAN REFERRAL HOTLINE AT . IF YOU CAN NOT AFFORD TO SEE A PHYSICIAN YOU CAN CHOSE FROM THE FOLLOWING [facility] INSTITUTIONS: [facility] [address] [place] [address] [facility] [address] [place] [address] [facility] [address] [place] [address] Additional Instructions: Call your primary care doctor TOMORROW for an appointment during the next 1 WEEK.Tell the assistant corporate secretary that you were referred from this facility.See the doctor sooner or return here if your condition worsens before your appointment time. USHA CARTER MD September 06, 2018 18:28
[2018-09-06 18:31] VITALS: BP 168/93; PULSE 70; RESP 20
== END 2018-09-06 18:59 | disposition home or self-care (01) ==
LOC: E/R 16:36
DX: R10.13 Epigastric pain (principal); I10 Essential (primary) hypertension; E11.9 Type 2 diabetes mellitus without complications; Z79.84 Long term (current) use of oral hypoglycemic drugs
CPT/HCPCS: 36415; 80053; 83690; 85025; 99283